=== PATIENT | female | born 1955 | race Caucasian/White ===

== ENCOUNTER 2016-08-11 06:00 | Outpatient (CLI) | payer OTHER ==
[~2016-08-11] VITALS: Ht 162.6 cm; Wt 79.8 kg
[~2016-08-11 06:00] MED LIST: ACHD5005 PO; AGGRENOX; B12; CHOL4PAC17 PO; CIPR-120 PO; DICY10CA26 PO; ENAL1TAB19 PO; GABA800T2 PO; GLUMETZA; HYDR-1231 PO; INSASP10V; INSU100C4; JANUVIA; LANTUS; LSNP10T; LVST20T; MGX400T; NAPR550T PO; PRILOSEC; SULF-222 PO; VIT D; [UNRECOGNIZED DRUG - OTHER]
--- OUTSIDE RECORDS SUMMARY | 2016-08-11 06:03 | XMS REPORT | Continuity of Care Document ---
Author Author [facility] Organization [facility] Address Unknown Phone Unavailable Allergies Active Description Code Type Severity Reaction Onset Reported/Identified Relationship to Patient Clinical Status Yes pregabalin [id number] Drug Allergy Mild N/A 09/24/2007 Medications Problems Procedures Results Encounters ACCT No. Visit Date/Time Discharge Status Pt. Type Provider Facility Loc./Unit Complaint [id number] 01/15/2014 14:45:00 2013 23:59:59 CLS Outpatient [id number] 12/17/2013 13:30:00 2013 23:59:59 CLS Outpatient [id number] 12/17/2013 14:10:00 2013 15:39:00 DIS Emergency [id number] 05/16/2013 11:39:00 2012 23:59:59 CLS Outpatient [id number] 02/07/2013 14:20:00 2012 23:59:59 CLS Outpatient [id number] 08/11/2016 06:00:00 ACT Outpatient VIBHA WALLACE MD [facility] PREOP ABD PAIN
[2016-08-11] MEDS ORDERED: INSU100I32 SQ (13:51)
[2016-08-11] MEDS ORDERED: SITA100T12 PO (13:51)
[2016-08-11] MEDS ORDERED: OMEP20TA33 PO (13:55)
[2016-08-12] MEDS ORDERED: VITAMINE (12:47)
[2016-08-12] MEDS ORDERED: NAPR500T PO (12:47)
[2016-08-12] MEDS ORDERED: B12 SHOT (12:47)
[2016-08-12] MEDS ORDERED: PANT40TA3 PO (12:47)
[2016-08-12] MEDS ORDERED: DPAS20025 PO (12:47)
[2016-08-12] MEDS ORDERED: LOVA10TA PO (12:47)
[2016-08-12] MEDS ORDERED: FLUC100T6 PO (13:26)
[2016-08-12] MEDS ORDERED: SUCR1TAB36 PO (13:26)
== END 2016-08-11 14:06 ==
LOC: PREOP 06:00
PROVIDERS: ATTEND Surgery Pediatric Surgery
DX: Z01.818 Encounter for other preprocedural examination (principal); R10.9 Unspecified abdominal pain

== ENCOUNTER 2016-08-12 11:58 | Day surgery (SDC) | payer OTHER ==
[~2016-08-12] VITALS: Ht 162.6 cm; Wt 79.8 kg
[~2016-08-12 11:58] MED LIST changes: +INSU100I32 SQ; +OMEP20TA33 PO; +SITA100T12 PO
--- OUTSIDE RECORDS SUMMARY | 2016-08-12 12:01 | XMS REPORT | Continuity of Care Document ---
Author Author [facility] Organization [facility] Address Unknown Phone Unavailable Allergies Active Description Code Type Severity Reaction Onset Reported/Identified Relationship to Patient Clinical Status Yes pregabalin [id number] Drug Allergy Mild N/A 09/24/2007 Medications Problems Procedures Results Encounters ACCT No. Visit Date/Time Discharge Status Pt. Type Provider Facility Loc./Unit Complaint [id number] 08/11/2016 06:00:00 2016 14:06:00 DIS Outpatient VIBHA WALLACE MD [facility] PREOP ABD PAIN [id number] 01/15/2014 14:45:00 2013 23:59:59 CLS Outpatient [id number] 12/17/2013 13:30:00 2013 23:59:59 CLS Outpatient [id number] 12/17/2013 14:10:00 2013 15:39:00 DIS Emergency [id number] 05/16/2013 11:39:00 2012 23:59:59 CLS Outpatient [id number] 02/07/2013 14:20:00 2012 23:59:59 CLS Outpatient [id number] 08/12/2016 11:58:00 ACT Outpatient VIBHA WALLACE MD [facility] ENDO ABD PAIN
--- OUTSIDE RECORDS SUMMARY | 2016-08-12 12:01 | XMS REPORT | Continuity of Care Document ---
Author Author [facility] Organization [facility] Address Unknown Phone Unavailable Allergies Active Description Code Type Severity Reaction Onset Reported/Identified Relationship to Patient Clinical Status Yes pregabalin [id number] Drug Allergy Mild N/A 09/24/2007 Medications Problems Procedures Results Encounters ACCT No. Visit Date/Time Discharge Status Pt. Type Provider Facility Loc./Unit Complaint [id number] 08/11/2016 06:00:00 2016 14:06:00 DIS Outpatient VIBHA WALLACE MD [facility] PREOP ABD PAIN [id number] 01/15/2014 14:45:00 2013 23:59:59 CLS Outpatient [id number] 12/17/2013 13:30:00 2013 23:59:59 CLS Outpatient [id number] 12/17/2013 14:10:00 2013 15:39:00 DIS Emergency [id number] 05/16/2013 11:39:00 2012 23:59:59 CLS Outpatient [id number] 02/07/2013 14:20:00 2012 23:59:59 CLS Outpatient [id number] 08/12/2016 11:58:00 ACT Outpatient VIBHA WALLACE MD [facility] ENDO ABD PAIN
[2016-08-12] MEDS ORDERED: NS IV 500 ML 500 ML IV SCH (12:15)
[2016-08-12] MEDS ORDERED: LIDOCAINE JELLY 2% (XYLOCAINE) 5 ML TUBE MM PRN (12:15)
[2016-08-12] MEDS ORDERED: HURRICAINE EXT TUBE (BENZOCAINE) XX PRN (12:15)
[2016-08-12] MEDS ORDERED: FLUMAZENIL (ROMAZICON) 0.1 MG/ML 5 ML VIAL INJ PRN (12:15)
[2016-08-12] MEDS ORDERED: NALOXONE 0.4 MG/ML 1 ML (NARCAN) VIAL IVP PRN (12:15)
[2016-08-12 12:34] VITALS: BP 87/62
--- NOTE | 2016-08-12 12:35 | Conscious Sedation/ASA ---
Conscious Sedation Pre-Proced Time Reviewed: 12:15 ASA Class: 2 Airway Mallampati Classification: ([place] appropriate class) I. II. III, IV Lungs Heart ASA score ASA 1: a normal healthy patient ASA 2: a patient with a mild systemic disease (mid diabetes, controlled hypertension, obesity ASA 3: a patient with a severe systemic disease that limits activity (angina , COPD, prior Myocardial infarction) ASA 4: a patient with an incapacitating disease that is a constant threat to life (CHF, renal failure) ASA 5: a moribund patient not expected to survive 24 hrs. (ruptured aneurysm) ASA 6: a declared brain patient whose organs are being harvested. For emergent operations, add the letter E after the classification Grade 2 Sedation Plan: Analgesia, Amnesia, Plan communicated to team members, Discussed options with patient/fam, Discussed risks with patient/fam Note The patient is an appropriate candidate to undergo the planned procedure, sedation, and anesthesia. The patient immediately re-assessed prior to indication. VIBHA WALLACE MD Aug 12, 2016 12:35 pm
--- NOTE | 2016-08-12 12:36 | Progress Note-Pre Operative ---
Pre-Operative Progress Note H&P Reviewed The H&P was reviewed, patient examined and no changes noted. Date H&P Reviewed: Aug 12, 2016 Time H&P Reviewed: 12:15 Pre-Operative Diagnosis: GERD VIBHA WALLACE MD Aug 12, 2016 12:36 pm
[2016-08-12] MEDS ORDERED: HURRICAINE EXT TUBE (BENZOCAINE) ONE (12:37)
[2016-08-12] MEDS ORDERED: fentaNYL INJECTION 100 MCG/2 ML AMP ONE (12:37)
[2016-08-12] MEDS ORDERED: MIDAZOLAM 2 MG/2 ML (VERSED) VIAL ONE ×4 (12:37)
[2016-08-12] MEDS: fentaNYL INJECTION 100 MCG/2 ML AMP IVP PRN ×2 (12:40→12:53)
[2016-08-12] MEDS: MIDAZOLAM 2 MG/2 ML (VERSED) VIAL IVP PRN ×2 (12:41→12:54)
[2016-08-12] MEDS ORDERED: ONDANSETRON 4 MG/2 ML (SDV) Z0FRAN IV PRN (12:45)
[2016-08-12] MEDS ORDERED: morphine INJ 10 MG/ML 1ML (SYR OR VIAL) IV PRN (12:45)
[2016-08-12] MEDS ORDERED: HYDROcodone/APAP 5 MG/325 MG (LORTAB) TAB PO PRN (12:45)
[2016-08-12] MEDS ORDERED: ACETAMINOPHEN 325 MG TABLET/CAPLET (TYLENOL) PO PRN (12:45)
[2016-08-12] MEDS ORDERED: PANT40TA3 PO (12:47)
[2016-08-12] MEDS ORDERED: B12 SHOT (12:47)
[2016-08-12] MEDS ORDERED: VITAMINE (12:47)
[2016-08-12] MEDS ORDERED: DPAS20025 PO (12:47)
[2016-08-12] MEDS ORDERED: LOVA10TA PO (12:47)
[2016-08-12] MEDS ORDERED: NAPR500T PO (12:47)
--- NOTE | 2016-08-12 13:24 | Progress Note-Post Operative ---
Post-Operative Progess Note Pre-Operative Diagnosis GERD Post-Operative Diagnosis reflux esophagitis(class B-C), small HH(2cm), distal esophageal plaques, mild gastritis. Post-Op Procedure Note Date of Procedure: Aug 12, 2016 Name of Procedure: EGD with bx and brushings Anesthesia Type CS Estimated blood loss (mL): minimal Specimen(s) collected GE jxn, antrum, esophageal brushings for amor VIBHA WALLACE MD Aug 12, 2016 1:24 pm
[2016-08-12] MEDS ORDERED: FLUC100T6 PO (13:26)
[2016-08-12] MEDS ORDERED: SUCR1TAB36 PO (13:26)
--- NOTE | 2016-08-12 13:27 | Discharge Inst-Surgical ---
D/C Lap Instructions-KIDO New, Converted, or Re-Newed RX: RX on Chart Follow Up Appt 6 weeks Activity as tolerated High Fiber Diet 25g or more per day Avoid Alcohol, Caffeine, Spicy [place] and Acid foods. Drink 64 fluid oz or more of fluids per day. Symptoms to Report: Fever over 101 degree F, Nausea/Vomiting If any problems/questions: Contact your physician or go to Emergency Room VIBHA WALLACE MD Aug 12, 2016 1:27 pm
[2016-08-12 13:40] VITALS: BP 100/62
[2016-08-12 14:00] VITALS: BP 97/56
[2016-08-12 14:05] VITALS: BP 97/56
--- NOTE | 2016-08-14 09:20 | OPERATIVE REPORT ---
PROCEDURE PHYSICIAN: VIBHA WALLACE DATE OF PROCEDURE: 08/12/2016 ATTENDING PHYSICIAN: Dr. Butler. PREOPERATIVE DIAGNOSIS: Gastroesophageal reflux disease with history of H. pylori gastritis. POSTOPERATIVE DIAGNOSES: 1. Reflux esophagitis, between class B and C. 2. Distal esophageal plaque which may indicate esophageal candidiasis. 3. Small hiatal hernia, approximately 2 cm in size. 4. Mild gastritis. PROCEDURE: EGD with biopsy. SURGEON: Dr. Wallace. ANESTHESIA: Conscious sedation. ESTIMATED BLOOD LOSS: Minimal. FINDINGS: 1. Reflux esophagitis, between class B and C with yellowish plaques throughout the distal esophagus consistent with an esophageal candidiasis. 2. No ulcers or strictures in the esophagus. 3. Small hiatal hernia, approximately 2 cm in size. 4. Mild severity gastritis. 5. No ulcers or polyps in the stomach. DISPOSITION: The patient tolerated the procedure well. BRIEF HISTORY: Ms. Chantale Salguero is a 60-year-old female who we have seen before in the past. We had initially seen in December 2009 her reflux and regurgitation. She a history of laparoscopic cholecystectomy as well as antireflux procedure September 2007. She reports that she had a follow-up endoscopy in 2009 where H. pylori was identified and treated. She reports that she has had recurrent episodes of reflux with epigastric burning sensation as well as crampy pain that is worsened by spicy, greasy or acidic foods. PROCEDURE: The patient was brought to the endoscopy suite, laid in the left lateral decubitus position. After adequate IV pain and sedative medications and conscious sedation anesthesia, the mouthpiece was applied. The endoscope was placed in the mouth, visualizing the pharynx and hypopharyngeal region. Vocal cords, epiglottis and vallecula identified and appeared to be normal. The endoscope was then gently intubated into the esophageal opening and the esophagus at. The endoscope was advanced through the first, second, and 3rd portions of the esophagus. At the level of the GE junction, a reflux esophagitis, between class B and C identified. There also yellowish plaques within the distal esophagus consistent with an esophageal candidiasis which is more common with a history of diabetes. Several biopsies were taken of the GE junction using forceps as well as brushings with visualization of good hemostasis. The endoscope was then advanced into the stomach and endoscope retroflexed visualizing a small hiatal hernia, approximately 2 cm in size. There was a mild to moderate severity gastritis. No ulcers, polyps or any neoplasms identified throughout the stomach. The endoscope was then advanced through the pylorus, into the first and second portions of duodenum which appeared normal. The endoscope was slowly withdrawn while taking a second look and suctioning residual air with no additional findings. The patient tolerated the procedure well. We will recommend the necessary lifestyle and diet accommodation including smoking cessation as well as avoidance of caffeinated beverages, spicy, greasy and acidic foods. She also needs to proceed with smaller, more frequent meals, avoidance of eating at night, as well as head elevation while lying supine. We will also start her on Carafate 1 gram q.i.d. for the next 2 weeks and then on a p.r.n. basis, as well as empirically treat her for esophageal candidiasis with fluconazole 100 mg on the first day and a 100 mg daily for a total 14 days. Job ID: [id number] Dictated Date: 08/12/2016 13:18:50 Transportation Lead Date: 08/14/2016 09:12:32 / melanie
== END 2016-08-12 14:05 | disposition home or self-care (01) ==
LOC: ENDO 11:58
PROVIDERS: ATTEND Surgery Pediatric Surgery
DX: K21.0 Gastro-esophageal reflux disease with esophagitis (principal); K44.9 Diaphragmatic hernia without obstruction or gangrene; K29.70 Gastritis, unspecified, without bleeding; B96.81 Helicobacter pylori [H. pylori] as the cause of diseases classified elsewhere
CPT/HCPCS: 87101; 87106; 88305; 88342

== ENCOUNTER 2017-06-30 10:57 | Inpatient (IN) | payer OTHER ==
[~2017-06-30] VITALS: Ht 162.6 cm; Wt 78.1 kg
[~2017-06-30 10:57] MED LIST changes: +B12 SHOT; +DPAS20025 PO; +FLUC100T6 PO; +LOVA10TA PO; +NAPR-1071 PO; +PANT40TA3 PO; +SUCR1TAB36 PO; +VITAMINE
[2017-06-30] MEDS ORDERED: LIDOCAINE 2% 20 ML (XYLOCAINE) VIAL ONE (11:26)
[2017-06-30] MEDS ORDERED: LIDOCAINE 1% INJ 50 ML (XYLOCAINE) VIAL IJ ONE (11:45)
[2017-06-30] MEDS ORDERED: morphine INJ 10 MG/ML 1ML (SYR OR VIAL) IVP STA (11:45)
[2017-06-30] MEDS ORDERED: NS IV 1000 ML 1,000 ML IV ONE (11:45)
--- NOTE | 2017-06-30 11:52 | ED General ---
General Chief Complaint: Skin/Wound Problems Stated Complaint: ABCESS ON REAR END Nursing Triage Note: abscess of the left buttock Source of Information: Patient, Spouse Exam Limitations: No Limitations History of Present Illness Time Seen by Provider: 11:20 Initial Comments 61-year-old female patient of Dr. Butler's presents to the emergency department with 9 day onset of left buttock abscess. Patient reports spontaneous drainage today. Does have a history of diabetes, recent cardiac stents. Is supposed to see Dr. Harris in July. Reports increased pain, redness, drainage. Denies any fevers or chills. Timing/Duration: Getting Worse, Other (9 day onset) Modifying Factors: worse with Other (worse with palpation, movement, and sitting) Allergies and Home Medications Allergies Coded Allergies: pregabalin (Unverified Allergy, Mild, 09/24/07) Home Medications Dipyridamole/Aspirin 1 Ea Cap, 1 CAP PO DAILY, (Reported) Dipyridamole/Aspirin 1 Ea Cap, 1 CAP PO BID, (Reported) Enalapril/Hydrochlorothiazide 1 Tab Tablet, 1 TAB PO DAILY, (Reported) Insulin Degludec 100 Unit/1 Ml Insuln.pen, 25 UNIT SQ DAILY@1800, (Reported) Lovastatin 10 Mg Tablet, 10 MG PO DAILY, (Reported) Naproxen 500 Mg Tablet, 500 MG PO NEEDED, (Reported) Pantoprazole Sodium 40 Mg Tablet.dr, 40 MG PO DAILY, (Reported) Sitagliptin Phosphate 100 Mg Tablet, 100 MG PO DAILY, (Reported) Sucralfate 1 Gm Tablet, 1 GM PO QID, #120 Prescribed by: VIBHA WALLACE on 08/12/16 1326 [B12 Shot] , (Reported) [Vitamine D2] , (Reported) Constitutional: No chills, No fever, malaise Respiratory: no symptoms reported Cardiovascular: no symptoms reported Gastrointestinal: No abdominal pain, No constipation, No diarrhea, loss of appetite, No nausea, No vomiting Genitourinary: No decreased output, No dysuria, No frequency, pain (labial/ vaginal pain today from the swelling) Musculoskeletal: no symptoms reported Skin: see HPI Psychiatric/Neurological: No Symptoms Reported All Other Systems Reviewed Negative Unless Noted: Yes (Negative excepted noted.) Past Dfytgep-Atxwra-Jztrkk Hx Patient Social History Alcohol Use: Denies Use Recreational Drug Use: No Smoking Status: Former Smoker Type Used: Cigarettes Recent Foreign Travel: No Contact w/Someone Who Travel: No Recent Hopitalizations: No Immunizations Up To Date Tetanus Booster (TDap): Less than 5yrs Date of Pneumonia Vaccine: Aug 04, 2016 Seasonal Allergies Seasonal Allergies: No Surgeries History of Surgeries: Yes (rt leg stents) Surgeries: Gallbladder, Tracheostomy, Tubal Ligation Respiratory History of Respiratory Disorde: No Cardiovascular History of Cardiac Disorders: Yes Cardiac Disorders: Hypertension, Peripheral Vascular Neurological History of Neurological Disord: Yes Neurological Disorders: TIA 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 System Hx 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 Disorders: No 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 Genitourinary History of Genitourinary Disor: No Gastrointestinal History of Gastrointestinal Di: Yes Gastrointestinal Disorders: Gastroesophageal Reflux Musculoskeletal History of Musculoskeletal Dis: No Endocrine History of Endocrine Disorders: Yes Endocrine Disorders: Diabetes, Insulin dep HEENT History of HEENT Disorders: Yes Psychosocial History of Psychiatric Problem: No Reviewed Nursing Assessment Reviewed/Agree w Nursing PMH: Yes Family Medical History Significant Family History: No Pertinent Family Hx, Heart Disease, Cancer ( cervical cancer), Diabetes, Hypertension, Vascular Disease Physical Exam Vital Signs Vital Sign - Last 12Hours 06/30/17 11:17 Temp 95.1 Pulse 70 Resp 18 B/P (MAP) 115/51 (72) Pulse Ox 98 O2 Delivery Room Air Capillary Refill : General Appearance: No Apparent Distress, WD/WN, Chronically ill HEENT: PERRL/EOMI, Pharynx Normal Neck: Normal Inspection, Supple Respiratory: Lungs Clear, Normal Breath Sounds, No Accessory Muscle Use, No Respiratory Distress Cardiovascular: Regular Rate, Rhythm, No Murmur Gastrointestinal: Normal Bowel Sounds, Non Tender, Soft Back: Normal Inspection Extremity: Normal Capillary Refill, No Pedal Edema Neurologic/Psychiatric: Alert, Oriented x3, Normal Mood/Affect Skin: Normal Color, Warm/Dry, Other (9 cm area of erythema, warmth, swelling, tenderness with central eschar of the left buttock. moderate amount of purulent , malodorous drainage noted. ) Progress/Results/Core Measures Suspected Sepsis SIRS Temperature: Pulse: Respiratory Rate: Laboratory Tests 06/30/17 11:45: White Blood Count 11.6H Blood Pressure / Mean: Laboratory Tests 06/30/17 11:45: Creatinine 1.72H, Platelet Count 233, Total Bilirubin 0.4 Results/Orders Lab Results Laboratory Tests Test 06/30/17 11:45 Range/Units White Blood Count 11.6 H 4.3-11.0 10^3/uL Red Blood Count 4.34 L 4.35-5.85 10^6/uL Hemoglobin 13.5 11.5-16.0 G/DL Hematocrit 39 35-52 % Mean Corpuscular Volume 89 80-99 FL Mean Corpuscular Hemoglobin 31 25-34 PG Mean Corpuscular Hemoglobin Concent 35 32-36 G/DL Red Cell Distribution Width 13.5 10.0-14.5 % Platelet Count 233 130-400 10^3/uL Mean Platelet Volume 12.7 H 7.4-10.4 FL Neutrophils (%) (Auto) 79 H 42-75 % Lymphocytes (%) (Auto) 11 L 12-44 % Monocytes (%) (Auto) 8 0-12 % Eosinophils (%) (Auto) 2 0-10 % Basophils (%) (Auto) 1 0-10 % Neutrophils # (Auto) 9.2 H 1.8-7.8 X 10^3 Lymphocytes # (Auto) 1.3 1.0-4.0 X 10^3 Monocytes # (Auto) 1.0 0.0-1.0 X 10^3 Eosinophils # (Auto) 0.2 0.0-0.3 10^3/uL Basophils # (Auto) 0.1 0.0-0.1 10^3/uL Sodium Level 133 L 135-145 MMOL/L Potassium Level 3.9 3.6-5.0 MMOL/L Chloride Level 100 98-107 MMOL/L Carbon Dioxide Level 20 L 21-32 MMOL/L Anion Gap 13 5-14 MMOL/L Blood Urea Nitrogen 45 H 7-18 MG/DL Creatinine 1.72 H 0.60-1.30 MG/DL Estimat Glomerular Filtration Rate 30 BUN/Creatinine Ratio 26 Glucose Level 191 H 70-105 MG/DL Calcium Level 9.2 8.5-10.1 MG/DL Total Bilirubin 0.4 0.1-1.0 MG/DL Aspartate Amino Transf (AST/SGOT) 16 5-34 U/L Alanine Aminotransferase (ALT/SGPT) 13 0-55 U/L Alkaline Phosphatase 42 40-136 U/L C-Reactive Protein High Sensitivity 4.96 H 0.00-0.50 MG/DL Total Protein 7.2 6.4-8.2 GM/DL Albumin 3.3 3.2-4.5 GM/DL My Orders Orders - FAMILIA RESENDIZ Saline Lock/Iv-Start (06/30/17 11:45) Cbc With Automated Diff (06/30/17 11:45) Comprehensive Metabolic Panel (06/30/17 11:45) Hs C Reactive Protein (06/30/17 11:45) Wound Culture (06/30/17 11:45) Morphine Injection (Morphine Injection (06/30/17 11:45) Ns Iv 1000 Ml (Sodium Chloride 0.9%) (06/30/17 11:45) Lidocaine 1% (Xylocaine 1%) (06/30/17 11:45) Vancomycin Injection (Vancomycin Injecti (06/30/17 12:15) Piperacillin Sodium/Tazobactam (Zosyn Vi (06/30/17 12:15) Ns (Ivpb) (Sodium Chloride 0.9% Ivpb Bag (06/30/17 12:44) Medications Given in ED Current Medications Medications Dose Ordered Sig/Nhan Route Start Time Stop Time Status Last Admin Dose Admin Lidocaine HCl 50 ml ONCE ONCE IJ 06/30/17 11:45 06/30/17 11:47 DC 06/30/17 11:25 50 ML Piperacillin Sod/ Tazobactam Sod 4.5 gm ONCE ONCE IV 06/30/17 12:15 06/30/17 12:16 DC 06/30/17 13:01 4.5 GM Sodium Chloride 1,000 ml @ 0 mls/hr Q0M ONCE IV 06/30/17 11:45 06/30/17 11:47 DC 06/30/17 11:57 0 MLS/HR Vital Signs/I&O Vital Sign - Last 12Hours 06/30/17 11:17 Temp 95.1 Pulse 70 Resp 18 B/P (MAP) 115/51 (72) Pulse Ox 98 O2 Delivery Room Air Capillary Refill : Departure Communication (Admissions) Time/Spoke to Admitting Phy: 11:[address] You graciously accepts patient to his general surgery service for IV antibiotics and further management. Incision and drainage with 1/4 in jason drain placement performed by Dr. You in the emergency department at bedside. Progress Notes Laboratory findings and plan for admission discussed with the patient. Patient verbalizes understanding and agrees with the treatment plan. Dr. Varela notified of plan of admission. Impression Impression: Primary Impression: Cellulitis and abscess of buttock Additional Impressions: Hyperglycemia due to type 2 diabetes mellitus Qualified Codes: E11.65 - Type 2 diabetes mellitus with hyperglycemia Leukocytosis Qualified Codes: D72.829 - Elevated white blood cell count, unspecified CKD (chronic kidney disease) stage 3, GFR 30-59 ml/min Disposition: ADMITTED INPATIENT Condition: Stable Admissions Decision to Admit Reason: Admit from ER (General) Decision to Admit/Date: Jun 30, 2017 Time/Decision to Admit Time: 12:00 Departure-Patient Inst. Referrals: NATHAN BUTLER DO (PCP/Family) Primary Care Physician FAMILIA RESENDIZ Jun 30, 2017 11:52
[2017-06-30 12:00] LABS: BASOPHILS # (AUTO) 0.1 10^3/uL (0.0-0.1); BASOPHILS % (AUTO) 1 % (0-10); EOSINOPHILS # (AUTO) 0.2 10^3/uL (0.0-0.3); EOSINOPHILS % (AUTO) 2 % (0-10); HEMATOCRIT 39 % (35-52); HEMOGLOBIN 13.5 G/DL (11.5-16.0); LYMPHOCYTES # (AUTO) 1.3 X 10^3 (1.0-4.0); LYMPHOCYTES % (AUTO) 11 % (12-44); MEAN CORPUSCULAR HEMOGLOBIN 31 PG (25-34); MEAN CORPUSCULAR HGB CONC 35 G/DL (32-36); MEAN CORPUSCULAR VOLUME 89 FL (80-99); MEAN PLATELET VOLUME 12.7 FL (7.4-10.4); MONOCYTES % (AUTO) 8 % (0-12); NEUTROPHILS # (AUTO) 9.2 X 10^3 (1.8-7.8); NEUTROPHILS % (AUTO) 79 % (42-75); PLATELET COUNT 233 10^3/uL (130-400); RED BLOOD COUNT 4.34 10^6/uL (4.35-5.85); RED CELL DISTRIBUTION WIDTH 13.5 % (10.0-14.5); WHITE BLOOD COUNT 11.6 10^3/uL (4.3-11.0)
[2017-06-30] MEDS ORDERED: VANCOMYCIN INJECTION 1,000 MG in NS (IVPB) 250 ML IV ONE (12:15)
[2017-06-30] MEDS ORDERED: PIPERACILLIN/TAZO 4.5 GM VIAL (ZOSYN) IV ONE (12:15)
[2017-06-30 12:19] VITALS: BP 106/65
[2017-06-30 12:19] LABS: ALBUMIN 3.3 GM/DL (3.2-4.5); BILIRUBIN,TOTAL 0.4 MG/DL (0.1-1.0); CALCIUM 9.2 MG/DL (8.5-10.1); CREATININE SERUM 1.72 MG/DL (0.60-1.30); POTASSIUM 3.9 MMOL/L (3.6-5.0); TOTAL PROTEIN 7.2 GM/DL (6.4-8.2)
[2017-06-30] MEDS ORDERED: DPAS20025 PO (12:36)
--- NOTE | 2017-06-30 12:40 | History & Physical-Surgical ---
History of Present Illness History of Present Illness Reason for visit/HPI CC: Left buttock abscess/cellulitis 61 year old female with abscess on left buttock that has been there for approximately 9 days. It has continued to increase in size and has been draining almost on a daily basis varying amounts. She has a pressure type pain from left buttock down towards her vagina. She has not has any fever sweats chills shortness of breath or chest pain. She states sitting down makes pain worse. Avoiding pressure on it makes it better. She saw Dr. Butler today. She is a diabetic but she does not check her blood sugars regularly. at bedside with her. Date of Admission T Date Seen by Provider: Jun 30, 2017 Time Seen by Provider: 12:39 I consulted on this patient on 06/30/17 12:35 Attending Physician Kenyatta Admitting Physician Usman Butler DO Consult Dr. Cunningham Allergies and Home Medications Allergies Coded Allergies: pregabalin (Unverified Allergy, Mild, 09/24/07) Home Medications Dipyridamole/Aspirin 1 Ea Cap, 1 CAP PO DAILY, (Reported) Enalapril/Hydrochlorothiazide 1 Tab Tablet, 1 TAB PO DAILY, (Reported) Fluconazole 100 Mg Tablet, 100 MG PO DAILY, #15 Prescribed by: VIBHA WALLACE on 08/12/16 1326 Insulin Degludec 100 Unit/1 Ml Insuln.pen, 25 UNIT SQ DAILY@1800, (Reported) Lovastatin 10 Mg Tablet, 10 MG PO DAILY, (Reported) Naproxen 500 Mg Tablet, 500 MG PO NEEDED, (Reported) Pantoprazole Sodium 40 Mg Tablet.dr, 40 MG PO DAILY, (Reported) Sitagliptin Phosphate 100 Mg Tablet, 100 MG PO DAILY, (Reported) Sucralfate 1 Gm Tablet, 1 GM PO QID, #120 Prescribed by: VIBHA WALLACE on 08/12/16 1326 [B12 Shot] , (Reported) [Vitamine D2] , (Reported) Past Uliktoz-Fxtham-Vmwhdd Hx Patient Social History Alcohol Use: Denies Use Recreational Drug Use: No Smoking Status: Former Smoker Former Smoker, Quit: Jun 18, 2017 Type Used: Cigarettes Recent Foreign Travel: No Contact w/Someone Who Travel: No Recent Infectious Disease Expo: No Recent Hopitalizations: No Immunizations Up To Date Tetanus Booster (TDap): Less than 5yrs Date of Pneumonia Vaccine: Aug 04, 2016 Seasonal Allergies Seasonal Allergies: No Surgeries History of Surgeries: Yes (LAP JOSE ALFREDO THEN REVERSAL) Surgeries: Cardiac, Gallbladder, Tracheostomy, Tubal Ligation Respiratory History of Respiratory Disorde: No Cardiovascular History of Cardiac Disorders: Yes (R-LEG STENT AT [facility]) Neurological History of Neurological Disord: Yes Neurological Disorders: TIA 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 System Hx 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 Disorders: 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 Genitourinary History of Genitourinary Disor: No Gastrointestinal History of Gastrointestinal Di: Yes Gastrointestinal Disorders: Gastroesophageal Reflux Musculoskeletal History of Musculoskeletal Dis: No Endocrine History of Endocrine Disorders: Yes Endocrine Disorders: Diabetes, Insulin dep HEENT History of HEENT Disorders: Yes Loss of Vision: Right Cancer History of Cancer: No Psychosocial History of Psychiatric Problem: No Integumentary History of Skin or Integumenta: No Blood Transfusions History of Blood Disorders: No Family Medical History Significant Family History: No Pertinent Family Hx Constitutional: no symptoms reported EENTM: no symptoms reported Respiratory: no symptoms reported Cardiovascular: no symptoms reported Gastrointestinal: no symptoms reported Genitourinary: no symptoms reported Musculoskeletal: no symptoms reported Skin: see HPI Psychiatric/Neurological: No Symptoms Reported Physical Exam Vital Signs Vital Sign - Last 12Hours 06/30/17 11:17 Temp 95.1 Pulse 70 Resp 18 B/P (MAP) 115/51 (72) Pulse Ox 98 O2 Delivery Room Air Capillary Refill : Less Than 3 Seconds General Appearance: No Apparent Distress HEENT: PERRL/EOMI Neck: Full Range of Motion, Normal Inspection Respiratory: No Accessory Muscle Use, No Respiratory Distress Cardiovascular: Regular Rate, Rhythm Gastrointestinal: Non Tender, Soft Genital/Rectal: Other (large left buttock abscess with some necrotic skin where there is slight drainage, lot of surrounding induration approximately 9 cm in greastest diameter) Back: Normal Inspection Extremity: Normal Inspection Neurologic/Psychiatric: Alert, Oriented x3, No Motor/Sensory Deficits, Normal Mood/Affect, moisture meter reader II-XII Norm as Tested Skin: Other (erythema around left buttock) Lymphatic: No Adenopathy Data Review Labs Laboratory Tests 06/30/17 11:45: White Blood Count 11.6H, Red Blood Count 4.34L, Hemoglobin 13.5, Hematocrit 39, Mean Corpuscular Volume 89, Mean Corpuscular Hemoglobin 31, Mean Corpuscular Hemoglobin Concent 35, Red Cell Distribution Width 13.5, Platelet Count 233, Mean Platelet Volume 12.7H, Neutrophils (%) (Auto) 79H, Lymphocytes (%) (Auto) 11L, Monocytes (%) (Auto) 8, Eosinophils (%) (Auto) 2, Basophils (%) (Auto) 1, Neutrophils # (Auto) 9.2H, Lymphocytes # (Auto) 1.3, Monocytes # (Auto) 1.0, Eosinophils # (Auto) 0.2, Basophils # (Auto) 0.1, Sodium Level 133L, Potassium Level 3.9, Chloride Level 100, Carbon Dioxide Level 20L, Anion Gap 13, Blood Urea Nitrogen 45H, Creatinine 1.72H, Estimat Glomerular Filtration Rate 30, BUN/ Creatinine Ratio 26, Glucose Level 191H, Calcium Level 9.2, Total Bilirubin 0.4 , Aspartate Amino Transf (AST/SGOT) 16, Alanine Aminotransferase (ALT/SGPT) 13, Alkaline Phosphatase 42, C-Reactive Protein High Sensitivity 4.96H, Total Protein 7.2, Albumin 3.3 Assessment/Plan Assessment/Plan Assessment/Plan left buttock cellulitis/abscess dm I and d at bedside with jason drain placement cultures obtained IV abx Discussed with Dr. Cunningham who is consulted for medical management Discussed may need further surgical intervention which patient understands. SORIN CISSE DO Jun 30, 2017 12:40
[2017-06-30] MEDS ORDERED: NS (IVPB) 100 ML ONE (12:44)
--- OUTSIDE RECORDS SUMMARY | 2017-06-30 12:51 | XMS REPORT | Continuity of Care Document ---
Author Author [facility] Organization [facility] Address Unknown Phone Unavailable Allergies Active Description Code Type Severity Reaction Onset Reported/Identified Relationship to Patient Clinical Status Yes pregabalin [id number] Drug Allergy Mild N/A 09/24/2007 Medications There is no data. Problems Date Dx Coded Attending Type Code Diagnosis Diagnosed By 08/12/2016 VIBHA WALLACE MD, Ot R10.9 UNSPECIFIED ABDOMINAL PAIN 08/12/2016 VIBHA WALLACE MD, Ot Z01.818 ENCOUNTER FOR OTHER PREPROCEDURAL EXAMIN 08/12/2016 VIBHA WALLACE MD, Ot B96.81 HELICOBACTER PYLORI THE CAUSE OF DISE 08/12/2016 VIBHA WALLACE MD, Ot K21.0 GASTRO-ESOPHAGEAL REFLUX DISEASE WITH ES 08/12/2016 VIBHA WALLACE MD, Ot K29.70 GASTRITIS, UNSPECIFIED, WITHOUT BLEEDING 08/12/2016 VIBHA WALLACE MD, Ot K44.9 DIAPHRAGMATIC HERNIA WITHOUT OBSTRUCTION 08/19/2016 VIBHA WALLACE MD, Ot B96.81 HELICOBACTER PYLORI THE CAUSE OF DISE 08/19/2016 VIBHA WALLACE MD, Ot K21.0 GASTRO-ESOPHAGEAL REFLUX DISEASE WITH ES 08/19/2016 VIBHA WALLACE MD, Ot K29.70 GASTRITIS, UNSPECIFIED, WITHOUT BLEEDING 08/19/2016 VIBHA WALLACE MD, Ot K44.9 DIAPHRAGMATIC HERNIA WITHOUT OBSTRUCTION Procedures There is no data. Results Test Result Range Fungus culture - 08/12/16 00:00 QUANTITY OF GROWTH Abundant Growth NR Fungus culture [id number] NR Complete blood count (CBC) with automated white blood cell (WBC) differential - 06/30/17 11:45 Blood leukocytes automated count (number/volume) 11.6 10*3/uL 4.3-11.0 Blood erythrocytes automated count (number/volume) 4.34 10*6/uL 4.35-5.85 Venous blood hemoglobin measurement (mass/volume) 13.5 g/dL 11.5-16.0 Blood hematocrit (volume fraction) 39 % 35-52 Automated erythrocyte mean corpuscular volume 89 [foz_us] 80-99 Automated erythrocyte mean corpuscular hemoglobin (mass per erythrocyte) 31 pg 25-34 Automated erythrocyte mean corpuscular hemoglobin concentration measurement ( mass/volume) 35 g/dL 32-36 Automated erythrocyte distribution width ratio 13.5 % 10.0-14.5 Automated blood platelet count (count/volume) 233 10*3/uL 130-400 Automated blood platelet mean volume measurement 12.7 [foz_us] 7.4-10.4 Automated blood neutrophils/100 leukocytes 79 % 42-75 Automated blood lymphocytes/100 leukocytes 11 % 12-44 Blood monocytes/100 leukocytes 8 % 0-12 Automated blood eosinophils/100 leukocytes 2 % 0-10 Automated blood basophils/100 leukocytes 1 % 0-10 Blood neutrophils automated count (number/volume) 9.2 10*3 1.8-7.8 Blood lymphocytes automated count (number/volume) 1.3 10*3 1.0-4.0 Blood monocytes automated count (number/volume) 1.0 10*3 0.0-1.0 Automated eosinophil count 0.2 10*3/uL 0.0-0.3 Automated blood basophil count (count/volume) 0.1 10*3/uL 0.0-0.1 Comprehensive metabolic panel - 06/30/17 11:45 Serum or plasma sodium measurement (moles/volume) 133 mmol/L 135-145 Serum or plasma potassium measurement (moles/volume) 3.9 mmol/L 3.6-5.0 Serum or plasma chloride measurement (moles/volume) 100 mmol/L 98-107 Carbon dioxide 20 mmol/L 21-32 Serum or plasma anion gap determination (moles/volume) 13 mmol/L 5-14 Serum or plasma urea nitrogen measurement (mass/volume) 45 mg/dL 7-18 Serum or plasma creatinine measurement (mass/volume) 1.72 mg/dL 0.60-1.30 Serum or plasma urea nitrogen/creatinine mass ratio 26 NRG Serum or plasma creatinine measurement with calculation of estimated glomerular filtration rate 30 NRG Serum or plasma glucose measurement (mass/volume) 191 mg/dL 70-105 Serum or plasma calcium measurement (mass/volume) 9.2 mg/dL 8.5-10.1 Serum or plasma total bilirubin measurement (mass/volume) 0.4 mg/dL 0.1-1.0 Serum or plasma alkaline phosphatase measurement (enzymatic activity/volume) 42 U/L 40-136 Serum or plasma aspartate aminotransferase measurement (enzymatic activity/ volume) 16 U/L 5-34 Serum or plasma alanine aminotransferase measurement (enzymatic activity/volume ) 13 U/L 0-55 Serum or plasma protein measurement (mass/volume) 7.2 g/dL 6.4-8.2 Serum or plasma albumin measurement (mass/volume) 3.3 g/dL 3.2-4.5 Serum or plasma C reactive protein measurement (mass/volume) - 06/30/17 11:45 Serum or plasma C reactive protein measurement (mass/volume) 4.96 mg /dL 0.00-0.50 Encounters ACCT No. Visit Date/Time Discharge Status Pt. Type Provider Facility Loc./Unit Complaint [id number] 08/12/2016 11:58:00 08/12/2016 14:05:00 DIS Outpatient VIBHA WALLACE MD [facility] ENDO ABD PAIN [id number] 08/11/2016 06:00:00 08/11/2016 14:06:00 DIS Outpatient VIBHA WALLACE MD [facility] PREOP ABD PAIN [id number] 01/15/2014 14:45:00 01/15/2014 23:59:59 CLS Outpatient [id number] 12/17/2013 13:30:00 12/17/2013 23:59:59 CLS Outpatient [id number] 12/17/2013 14:10:00 12/17/2013 15:39:00 DIS Emergency [id number] 05/16/2013 11:39:00 05/16/2013 23:59:59 CLS Outpatient [id number] 02/07/2013 14:20:00 02/07/2013 23:59:59 CLS Outpatient [id number] 06/30/2017 12:03:00 Document Registration
[2017-06-30 13:30] VITALS: BP 104/58
[2017-06-30] MEDS ORDERED: KETOROLAC 15 MG/ML VIAL IV PRN (14:00)
[2017-06-30] MEDS ORDERED: INFLUENZA TRIvalent 2017-2018 0.5 ML/45 MCG SYR IM ONE (14:00)
[2017-06-30] MEDS ORDERED: ONDANSETRON 4 MG/2 ML (SDV) Z0FRAN IV PRN (14:00)
[2017-06-30] MEDS ORDERED: ENAL2.5T PO (14:19)
[2017-06-30] MEDS ORDERED: ERGO50006 PO (14:19)
[2017-06-30] MEDS ORDERED: PANT40TA2 PO (14:19)
[2017-06-30] MEDS ORDERED: NAPR500T4 PO (14:19)
[2017-06-30] MEDS: NS IV 1000 ML 1,000 ML IV SCH ×3 (14:24→22:39)
[2017-06-30] MEDS: CLINDAMYCIN 600 MG/NS 50 ML IVPB IV SCH ×4 (14:27→22:38)
[2017-06-30] MEDS ORDERED: GABA-490 PO ×2 (14:31→15:23)
[2017-06-30] MEDS ORDERED: INSU100I32 SQ (14:31)
[2017-06-30] MEDS ORDERED: LIPA1CAP4 PO (14:31)
[2017-06-30] MEDS ORDERED: IBUP-30 PO (14:37)
[2017-06-30] MEDS ORDERED: VANCOMYCIN 1500 MG/NS 500 ML IVPB IV NR ×2 (15:00)
[2017-06-30] MEDS ORDERED: LOVA10TA PO (15:15)
[2017-06-30] MEDS ORDERED: CNC1KV IJ (15:16)
[2017-06-30 16:00] VITALS: BP 107/59
[2017-06-30] MEDS ORDERED: inSUlin (REGULAR) HUMAN 1 UNIT/0.01 ML (CHARGE PER UNIT) SC SCH (16:00)
[2017-06-30] MEDS ORDERED: NAPROXEN 250 MG (NAPROSYN) TABLET PO PRN (16:00)
[2017-06-30] MEDS: HYDROcodone/APAP 5 MG/325 MG (LORTAB) TAB PO PRN (16:13)
[2017-06-30] MEDS: LIPASE/AMYLASE/PROTEASE (PANCRELIPASE) 5,000 UNITS CAP PO SCH (16:32)
[2017-06-30] MEDS: inSUlin ASPART (NovoLOG) 1 UNIT/0.01 ML (CHARGE PER UNIT) SC SCH ×2 (16:32→21:46)
[2017-06-30] MEDS: PIPERACILLIN/TAZOBACTAM 4.5 GM/NS 100 ML IVPB IV SCH ×2 (18:34)
[2017-06-30 20:00] VITALS: BP 98/56
[2017-06-30] MEDS: LINAGLIPTIN (TRADJENTA) 5 MG TABLET PO SCH (21:45)
[2017-06-30] MEDS: GABAPENTIN 400 MG (NEURONTIN) CAP PO SCH (21:45)
[2017-07-01] VITALS: BP_SYST 102; BP_SYST 12; BP_DIAS 52
[2017-07-01 04:00] VITALS: BP 94/53
[2017-07-01] MEDS: PIPERACILLIN/TAZOBACTAM 4.5 GM/NS 100 ML IVPB IV SCH ×6 (04:03→18:35)
[2017-07-01] MEDS: LIPASE/AMYLASE/PROTEASE (PANCRELIPASE) 5,000 UNITS CAP PO SCH ×3 (06:17→15:07)
[2017-07-01] MEDS: inSUlin ASPART (NovoLOG) 1 UNIT/0.01 ML (CHARGE PER UNIT) SC SCH ×4 (06:18→21:55)
[2017-07-01] MEDS: CLINDAMYCIN 600 MG/NS 50 ML IVPB IV SCH ×6 (06:18→21:54)
[2017-07-01] MEDS: HYDROcodone/APAP 5 MG/325 MG (LORTAB) TAB PO PRN ×4 (06:18→23:39)
[2017-07-01 08:00] VITALS: BP 104/54
[2017-07-01 08:01] LABS: BASOPHILS # (AUTO) 0.1 10^3/uL (0.0-0.1); BASOPHILS % (AUTO) 1 % (0-10); EOSINOPHILS # (AUTO) 0.2 10^3/uL (0.0-0.3); EOSINOPHILS % (AUTO) 2 % (0-10); HEMATOCRIT 31 % (35-52); HEMOGLOBIN 10.9 G/DL (11.5-16.0); LYMPHOCYTES # (AUTO) 1.3 X 10^3 (1.0-4.0); LYMPHOCYTES % (AUTO) 15 % (12-44); MEAN CORPUSCULAR HEMOGLOBIN 32 PG (25-34); MEAN CORPUSCULAR HGB CONC 35 G/DL (32-36); MEAN CORPUSCULAR VOLUME 91 FL (80-99); MEAN PLATELET VOLUME 12.2 FL (7.4-10.4); MONOCYTES % (AUTO) 11 % (0-12); NEUTROPHILS # (AUTO) 6.4 X 10^3 (1.8-7.8); NEUTROPHILS % (AUTO) 72 % (42-75); PLATELET COUNT 200 10^3/uL (130-400); RED BLOOD COUNT 3.45 10^6/uL (4.35-5.85); RED CELL DISTRIBUTION WIDTH 13.8 % (10.0-14.5); WHITE BLOOD COUNT 8.9 10^3/uL (4.3-11.0)
[2017-07-01 08:10] LABS: ALBUMIN 2.5 GM/DL (3.2-4.5); BILIRUBIN,TOTAL 0.4 MG/DL (0.1-1.0); CALCIUM 7.5 MG/DL (8.5-10.1); CREATININE SERUM 1.52 MG/DL (0.60-1.30); POTASSIUM 3.6 MMOL/L (3.6-5.0); TOTAL PROTEIN 5.4 GM/DL (6.4-8.2)
[2017-07-01] MEDS: NS IV 1000 ML 1,000 ML IV SCH ×2 (08:10→15:53)
[2017-07-01] MEDS: PANTOPRAZOLE 40 MG (PROTONIX) TAB PO SCH (08:11)
[2017-07-01] MEDS: GABAPENTIN 400 MG (NEURONTIN) CAP PO SCH ×3 (08:11→21:54)
[2017-07-01] MEDS: ENALAPRIL 2.5 MG (VASOTEC) TAB PO SCH (09:27)
[2017-07-01 12:00] VITALS: BP 103/52
--- NOTE | 2017-07-01 12:53 | Consultation-Hospitalist ---
HPI History of Present Illness: HPI/Chief Complaint CC: Medical management of diabetes in buttock abscess HPI: This is a 61-year-old white female clinic patient of Dr. Butler who presents to the ER with but Dr. You evaluated it and performed I & D and patient was admitted for supportive care and IV antibiotics. Cultures were reviewed and all antibiotics are maintained. Upon entering the room the abscess odor is very apparent inpatient reports her pain is better with pain medication. I reconciled all of her home medication yesterday and her blood sugars are adequate considering her acute illness infection. Source: patient Exam Limitations: no limitations Date Seen 07/01/17 Attending Physician Julius You DO PCP Usman Butler DO Referring Physician Date of Admission Jun 30, 2017 at 12:20 Home Medications & Allergies Home Medications Reviewed patient Home Medication Reconciliation Form Allergies Allergies Coded Allergies pregabalin (Unverified Allergy, Mild, 06/30/17) Past Yuhritd-Eljurv-Kpipnv Hx Patient Social History Marrital Status: Employed/Student: unemployed Alcohol Use: Denies Use Recreational Drug Use: No Smoking Status: Former Smoker Former Smoker, Quit: Jun 18, 2017 Type Used: Cigarettes Physical Abuse Screen: No Sexual Abuse: No Recent Foreign Travel: No Contact w/other who traveled: No Recent Hopitalizations: No Recent Infectious Disease Expo: No Immunizations Up To Date Tetanus Booster (TDap): Less than 5yrs Date of Pneumonia Vaccine: Aug 04, 2016 Seasonal Allergies Seasonal Allergies: No Surgeries Yes (rt leg stents) Cardiac, Gallbladder, Tracheostomy, Tubal Ligation Respiratory No Cardiovascular Yes (STENT IN LEG) Hypertension, Peripheral Vascular Neurological Yes TIA 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 System Hx 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 Disorders: No [employer] History: Tubal Ligation Genitourinary No Gastrointestinal Yes Gastroesophageal Reflux Musculoskeletal No Endocrine History of Endocrine Disorders: Yes Endocrine Disorders: Diabetes, Insulin dep 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 Review of Systems Constitutional: see HPI, fever EENTM: no symptoms reported Respiratory: no symptoms reported Cardiovascular: no symptoms reported Gastrointestinal: no symptoms reported Genitourinary: no symptoms reported Musculoskeletal: no symptoms reported Skin: see HPI Psychiatric/Neurological: No Symptoms Reported All Other Systems Reviewed Negative Unless Noted: Yes Physical Exam Physical Exam Vital Signs Vital Sign - Last 12Hours 06/30/17 11:17 Temp 95.1 Pulse 70 Resp 18 B/P (MAP) 115/51 (72) Pulse Ox 98 O2 Delivery Room Air Capillary Refill : Less Than 3 Seconds General Appearance: No Apparent Distress, WD/WN, Chronically ill Eyes: Bilateral Eye Normal Inspection, Bilateral Eye PERRL HEENT: PERRL/EOMI, Normal ENT Inspection, Pharynx Normal Neck: Full Range of Motion, Normal Inspection, Non Tender, Supple, Carotid Bruit Respiratory: Chest Non Tender, Lungs Clear, Normal Breath Sounds, No Accessory Muscle Use, No Respiratory Distress Cardiovascular: Regular Rate, Rhythm, No Edema, No Gallop, No JVD, No Murmur, Normal Peripheral Pulses Gastrointestinal: Normal Bowel Sounds, No Organomegaly, No Pulsatile Mass, Non Tender, Soft Back: Normal Inspection, No CVA Tenderness, No Vertebral Tenderness Extremity: Normal Capillary Refill, Normal Inspection, Normal Range of Motion, Non Tender, No Calf Tenderness, No Pedal Edema Neurologic/Psychiatric: Alert, Oriented x3, No Motor/Sensory Deficits, Normal Mood/Affect Skin: Normal Color, Warm/Dry, Other (abscess dressing intact) Lymphatic: No Adenopathy Results Results/Procedures Lab Laboratory Tests 06/30/17 11:45 07/01/17 07:24 Assessment/Plan Admission Diagnosis Assessment: Buttock abscess status post drainage and cultures appear to be strep placed on empiric antibiotics of broad-spectrum 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
[2017-07-01] MEDS: Insulin Degludec (Tresiba Flextouch U-100) SQ SCH (14:09)
[2017-07-01] MEDS: VANCOMYCIN 1250 MG/NS 250 ML IVPB IV SCH ×2 (15:00)
--- NOTE | 2017-07-01 15:03 | Progress Note ---
Subjective Date Seen by Provider: Jul 01, 2017 Time Seen by Provider: 09:16 Subjective/Events-last exam patient states its feeling better than yesterday. has drainage which has foul odor. still with erythema and induration. Denies n/v fever sweats chills shortness of breath or chest pain. Objective Exam Vital Signs Date Time Temp Pulse Resp B/P (MAP) Pulse Ox O2 Delivery O2 Flow Rate FiO2 07/01/17 12:00 97.4 72 18 103/52 (69) 94 Room Air 07/01/17 08:00 98.1 67 18 104/54 (71) 96 Room Air 07/01/17 04:00 97.6 69 17 94/53 (67) 97 Room Air 07/01/17 00:00 96.9 70 18 102/52 (69) 98 Room Air 06/30/17 20:00 96.5 57 20 98/56 (70) 98 Room Air 06/30/17 17:04 Room Air 06/30/17 16:00 96.6 73 20 107/59 (75) 98 Room Air I & O 07/01/17 07:00 Intake Total 1869 ml Output Total 525 ml Balance 1344 ml Capillary Refill : Less Than 3 Seconds General Appearance: No Apparent Distress, WD/WN, Chronically ill HEENT: PERRL/EOMI, Normal ENT Inspection, Pharynx Normal Neck: Full Range of Motion, Normal Inspection, Non Tender, Supple, Carotid Bruit Respiratory: Chest Non Tender, Lungs Clear, Normal Breath Sounds, No Accessory Muscle Use, No Respiratory Distress Cardiovascular: Regular Rate, Rhythm, No Edema, No Gallop, No JVD, No Murmur, Normal Peripheral Pulses Gastrointestinal: non tender, soft Extremity: Normal Capillary Refill, Normal Inspection, Normal Range of Motion, Non Tender, No Calf Tenderness, No Pedal Edema Neurologic/Psychiatric: Alert, Oriented x3, No Motor/Sensory Deficits, Normal Mood/Affect Skin: Normal Color, Warm/Dry, Other (abscess left buttock still erythema and induration, drain still in place, looks about same as yesterday) Lymphatic: No Adenopathy Results Lab Laboratory Tests 06/30/17 16:06: Glucometer 230H 06/30/17 20:43: Glucometer 155H 07/01/17 05:36: Glucometer 186H 07/01/17 07:24: White Blood Count 8.9, Red Blood Count 3.45L, Hemoglobin 10.9L, Hematocrit 31L, Mean Corpuscular Volume 91, Mean Corpuscular Hemoglobin 32, Mean Corpuscular Hemoglobin Concent 35, Red Cell Distribution Width 13.8, Platelet Count 200, Mean Platelet Volume 12.2H, Neutrophils (%) (Auto) 72, Lymphocytes (%) (Auto) 15 , Monocytes (%) (Auto) 11, Eosinophils (%) (Auto) 2, Basophils (%) (Auto) 1, Neutrophils # (Auto) 6.4, Lymphocytes # (Auto) 1.3, Monocytes # (Auto) 1.0, Eosinophils # (Auto) 0.2, Basophils # (Auto) 0.1, Sodium Level 134L, Potassium Level 3.6, Chloride Level 109H, Carbon Dioxide Level 13L, Anion Gap 12, Blood Urea Nitrogen 33H, Creatinine 1.52H, Estimat Glomerular Filtration Rate 35, BUN/ Creatinine Ratio 22, Glucose Level 200H, Calcium Level 7.5L, Total Bilirubin 0.4 , Aspartate Amino Transf (AST/SGOT) 14, Alanine Aminotransferase (ALT/SGPT) 12, Alkaline Phosphatase 49, C-Reactive Protein High Sensitivity 3.99H, Total Protein 5.4L, Albumin 2.5L 07/01/17 11:00: Glucometer 214H Microbiology 06/30/17 Gram Stain - Final, Resulted 06/30/17 Wound Culture - Preliminary, Resulted Strep Agalactiae Group B Strep Or Related Genus Assessment/Plan Assessment/Plan Assessment/Plan left buttock cellulitis/abscess dm I and d at bedside with jason drain placement yesterday cultures obtained IV abx- Vanc/Zosyn/Cleocin If no improvement tomorrow will plan on taking to operating room for further surgical intervention. npo after midnihgt Clinical Quality Measures DVT/VTE Risk/Contraindication: Risk Factor Score Per Nursin RFS Level Per Nursing on Admit: 4+=Very High SORIN CISSE DO Jul 01, 2017 15:03
[2017-07-01 16:00] VITALS: BP 97/50
[2017-07-01 20:00] VITALS: BP 94/50
[2017-07-01] MEDS: LINAGLIPTIN (TRADJENTA) 5 MG TABLET PO SCH (21:54)
[2017-07-02] VITALS (11 sets, daily range): BP systolic 73–102; BP diastolic 38–86
[2017-07-02] MEDS: NS IV 1000 ML 1,000 ML IV SCH ×5 (00:09→21:34)
[2017-07-02] MEDS: PIPERACILLIN/TAZOBACTAM 4.5 GM/NS 100 ML IVPB IV SCH ×6 (01:54→21:28)
[2017-07-02] MEDS: LIPASE/AMYLASE/PROTEASE (PANCRELIPASE) 5,000 UNITS CAP PO SCH ×3 (05:13→15:15)
[2017-07-02] MEDS: inSUlin ASPART (NovoLOG) 1 UNIT/0.01 ML (CHARGE PER UNIT) SC SCH ×4 (05:13→20:45)
[2017-07-02] MEDS: CLINDAMYCIN 600 MG/NS 50 ML IVPB IV SCH ×6 (06:20→20:47)
[2017-07-02 06:33] LABS: HEMOGLOBIN 10.4 G/DL (11.5-16.0); MEAN PLATELET VOLUME 11.8 FL (7.4-10.4); RED BLOOD COUNT 3.37 10^6/uL (4.35-5.85); RED CELL DISTRIBUTION WIDTH 14.4 % (10.0-14.5); WHITE BLOOD COUNT 6.5 10^3/uL (4.3-11.0)
[2017-07-02 06:57] LABS: CALCIUM 7.4 MG/DL (8.5-10.1); CREATININE SERUM 1.93 MG/DL (0.60-1.30); POTASSIUM 3.6 MMOL/L (3.6-5.0)
[2017-07-02] MEDS: PANTOPRAZOLE 40 MG (PROTONIX) TAB PO SCH (08:31)
[2017-07-02] MEDS: GABAPENTIN 400 MG (NEURONTIN) CAP PO SCH ×3 (08:31→20:46)
[2017-07-02] MEDS: ENALAPRIL 2.5 MG (VASOTEC) TAB PO SCH (08:32)
[2017-07-02] MEDS: Insulin Degludec (Tresiba Flextouch U-100) SQ SCH (08:40)
[2017-07-02] MEDS ORDERED: FAMOTIDINE 20MG/2ML IV (PEPCID) IVP ONE (10:30)
[2017-07-02] MEDS: morphine INJ 4 MG/ML 1 ML (VIAL/SYRINGE) IV PRN (10:53)
[2017-07-02] MEDS ORDERED: DAKIN'S 1/4 STRENGTH (0.125%) 473 ML BTL TOP SCH (11:00)
--- NOTE | 2017-07-02 11:01 | Progress Note ---
Subjective Date Seen by Provider: Jul 02, 2017 Time Seen by Provider: 10:58 Subjective/Events-last exam left buttock still hurts. Has drainage from it and foul smell. Denies fever and wbc normal. No new complaints. Objective Exam Vital Signs Date Time Temp Pulse Resp B/P (MAP) Pulse Ox O2 Delivery O2 Flow Rate FiO2 07/02/17 08:14 96.9 62 20 98/50 (66) 100 Room Air 07/02/17 00:00 97.8 60 20 94/53 (67) 98 Room Air 07/01/17 20:00 97.1 62 20 94/50 (65) 98 Room Air 07/01/17 16:00 97.6 63 20 97/50 (66) 98 Room Air 07/01/17 12:00 97.4 72 18 103/52 (69) 94 Room Air I & O 07/02/17 07:00 Intake Total 2340 ml Output Total 800 ml Balance 1540 ml Capillary Refill : Less Than 3 Seconds General Appearance: No Apparent Distress, WD/WN, Chronically ill HEENT: PERRL/EOMI, Normal ENT Inspection, Pharynx Normal Neck: Full Range of Motion, Normal Inspection, Non Tender, Supple Respiratory: Chest Non Tender, No Accessory Muscle Use, No Respiratory Distress Cardiovascular: Regular Rate, Rhythm Gastrointestinal: non tender, soft Extremity: Normal Capillary Refill, Normal Inspection, Normal Range of Motion, Non Tender, No Calf Tenderness, No Pedal Edema Neurologic/Psychiatric: Alert, Oriented x3, No Motor/Sensory Deficits, Normal Mood/Affect Skin: Normal Color, Warm/Dry, Other (abscess left buttock still erythema and induration, drain still in place, has some necrotic tissue in wound) Lymphatic: No Adenopathy Results Lab Laboratory Tests 07/01/17 11:00: Glucometer 214H 07/01/17 15:51: Glucometer 201H 07/01/17 20:29: Glucometer 160H 07/02/17 06:15: White Blood Count 6.5, Red Blood Count 3.37L, Hemoglobin 10.4L, Hematocrit 31L, Mean Corpuscular Volume 92, Mean Corpuscular Hemoglobin 31, Mean Corpuscular Hemoglobin Concent 34, Red Cell Distribution Width 14.4, Platelet Count 201, Mean Platelet Volume 11.8H, Sodium Level 135, Potassium Level 3.6, Chloride Level 111H, Carbon Dioxide Level 13L, Anion Gap 11, Blood Urea Nitrogen 31H, Creatinine 1.93H, Estimat Glomerular Filtration Rate 26, BUN/Creatinine Ratio 16 , Glucose Level 55*L, Calcium Level 7.4L 07/02/17 06:20: Glucometer 58*L 07/02/17 07:01: Glucometer 75 07/02/17 09:45: Glucometer 78 Microbiology 06/30/17 Gram Stain - Final, Resulted 06/30/17 Wound Culture - Preliminary, Resulted Strep Agalactiae Group B Staphylococcus Aureus Streptococcus Viridans Gram Negative Stephen Assessment/Plan Assessment/Plan Assessment/Plan left buttock cellulitis/abscess dm will plan taking patient to or for further incision and drainage with debridement and all other indicated procedures she understands risks and benefits and wishes to proceed. To or today Clinical Quality Measures DVT/VTE Risk/Contraindication: Risk Factor Score Per Nursin RFS Level Per Nursing on Admit: 4+=Very High SORIN CISSE DO Jul 02, 2017 11:01 am
[2017-07-02] MEDS ORDERED: fentaNYL INJECTION 100 MCG/2 ML AMP ONE (11:11)
[2017-07-02] MEDS ORDERED: MIDAZOLAM 2 MG/2 ML (VERSED) VIAL ONE (11:11)
[2017-07-02] MEDS ORDERED: ONDANSETRON 4 MG/2 ML (SDV) Z0FRAN ONE (11:19)
[2017-07-02] MEDS ORDERED: proPOfol 200 MG/20 ML (DIPRIVAN) VIAL IV ONE (11:19)
[2017-07-02] MEDS ORDERED: LIDOCAINE PF 2% 5 ML (XYLOCAINE) VIAL ONE (11:19)
[2017-07-02] MEDS ORDERED: LACTATED RINGERS 1,000 ML IV PRN (11:49)
--- NOTE | 2017-07-02 11:51 | Progress Note-Hospitalist ---
Progress Note HPI/CC on Admission CC: Medical management of diabetes in buttock abscess HPI: This is a 61-year-old white female clinic patient of Dr. Butler who presents to the ER with but Dr. You evaluated it and performed I & D and patient was admitted for supportive care and IV antibiotics. Cultures were reviewed and all antibiotics are maintained. Upon entering the room the abscess odor is very apparent inpatient reports her pain is better with pain medication. I reconciled all of her home medication yesterday and her blood sugars are adequate considering her acute illness infection. 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 Diagonsis/Assessment & Plan Patient was seen before going to Family at the bedside Odor from abscess still present and slightly worse Blood sugars satisfactory Labs reviewed Reviewed medication list No fever, vital signs stable, pleasant, oriented 3 Regular rate and rhythm, clear to auscultation bilaterally No edema Laboratory Tests 07/02/17 06:15 Assessment: Buttock abscess status post drainage and cultures appear to be strep placed on empiric antibiotics of broad-spectrum but just now completed surgical incision revealing necrotic fat with severe abscess formation given the fact this has been present for 13 days 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
[2017-07-02] MEDS ORDERED: morphine INJ 10 MG/ML 1ML (SYR OR VIAL) ONE (12:56)
[2017-07-02] MEDS ORDERED: ONDANSETRON 4 MG/2 ML (SDV) Z0FRAN IVP PRN (13:30)
[2017-07-02] MEDS ORDERED: morphine INJ 10 MG/ML 1ML (SYR OR VIAL) IVP PRN (13:30)
--- NOTE | 2017-07-02 13:48 | Progress Note-Post Operative ---
Post-Operative Progess Note Surgeon (s)/Spool Sander (s) Surgeon SORIN CISSE DO Spool Sander: na Pre-Operative Diagnosis left buttock abscess/cellulitis Post-Operative Diagnosis forniere's gangrene Procedure & Operative Findings Date of Procedure 07/02/17 Procedure Performed/Findings incision drainage and debridement 12x8x7 cm removing skin, subcutaneous fat, small amount of fascia and muscle Anesthesia Type general Estimated Blood Loss Estimated blood loss (mL): minimal Specimens/Packing Specimens Removed buttock wound culture SORIN CISSE DO Jul 02, 2017 13:48
[2017-07-02] MEDS ORDERED: TROUGH ORDER-PHARMACY XX NR (14:00)
[2017-07-02] MEDS: VANCOMYCIN 1250 MG/NS 250 ML IVPB IV SCH ×2 (16:14)
[2017-07-02] MEDS: HYDROcodone/APAP 5 MG/325 MG (LORTAB) TAB PO PRN (17:41)
--- NOTE | 2017-07-02 19:04 | OPERATIVE REPORT ---
DATE OF SERVICE: 06/30/2017 PREOPERATIVE DIAGNOSIS: Left buttock abscess. POSTOPERATIVE DIAGNOSIS: Left buttock abscess. PROCEDURE: Incision and drainage with Shree drain placement. SURGEON: Sorin You DO ANESTHESIA: 1% lidocaine. ESTIMATED BLOOD LOSS: Minimal. COMPLICATIONS: None. INDICATIONS: The patient is a 61-year-old female with a left buttock abscess. She does have some slight drainage from the area with a small opening present. She understands risks and benefits of procedure and wished to proceed with procedure. Consent was signed and in the chart. PROCEDURE: The patient was prepped and draped in sterile fashion. Timeout was performed. Local anesthetic was infiltrated into the area over the areas of fluctuance and where the small draining opening was. A scalpel was used to extend the opening and more purulent material erupted. Culture was obtained. A little more superior to this area there was another area of fluctuance which a scalpel was used to make an incision over this area and a little bit more purulent material erupted from which culture was obtained. The wound was then irrigated with copious amounts of irrigation. A finger was inserted through the incision and all loculations were broken up. A [place] drain was placed through both incisions and secured. The area was then washed and dried, sterile bandage was applied. The patient tolerated the procedure well without any complications. The patient is to be admitted for IV antibiotics and continued monitoring of the wound. Job ID: [id number] DocumentID: [id number] Dictated Date: 07/02/2017 15:27:28 Food Service Ambassador Date: 07/02/2017 19:03:55 Dictated By: SORIN YOU DO
[2017-07-02] MEDS: LINAGLIPTIN (TRADJENTA) 5 MG TABLET PO SCH (20:46)
[2017-07-02] MEDS ORDERED: SODIUM BICARB 8.4% 50 MEQ/50 ML (ABBOTT) SYR IV ONE (22:15)
[2017-07-02] MEDS ORDERED: ALBUMIN IV ONE (22:22)
[2017-07-02] MEDS ORDERED: ALBUMIN 5% 12.5 GM/250 ML 250 ML IV SCH (22:30)
[2017-07-02 23:10] LABS: ALBUMIN 2.5 GM/DL (3.2-4.5); BUN/CREATININE RATIO 14; CALCIUM 7.3 MG/DL (8.5-10.1); CARBON DIOXIDE 19 MMOL/L (21-32); CHLORIDE 111 MMOL/L (98-107); CREATININE SERUM 1.73 MG/DL (0.60-1.30); GFR ESTIMATED 30; GLUCOSE 118 MG/DL (70-105); MAGNESIUM 1.4 MG/DL (1.8-2.4); POTASSIUM 3.7 MMOL/L (3.6-5.0); SODIUM 139 MMOL/L (135-145)
[2017-07-02 23:24] LABS: ABG BASE EXCESS -7.4 MMOL/L (-2.5-2.5); ABG OXYGEN SATURATION 98 % (94-100); ABG PCO2 38 MMHG (35-45); ABG PO2 100 MMHG (79-93)
[2017-07-02 23:27] LABS: ALLENS TEST YES-POS; INSPIRED O2 2L; PATIENT TEMP 98.8; VENTILATOR NO
[2017-07-03] VITALS (11 sets, daily range): BP systolic 88–129; BP diastolic 54–99
[2017-07-03] MEDS ORDERED: NS (IVPB) 150 ML ONE (00:57)
[2017-07-03] MEDS ORDERED: CALCIUM GLUC. 10% 4.65 MEQ/10 ML VIAL ONE (00:57)
[2017-07-03] MEDS ORDERED: SODIUM BICARB 8.4% 50 MEQ/50 ML (ABBOTT) SYR IV ONE (01:00)
[2017-07-03] MEDS ORDERED: HALOPERIDOL 5 MG/ML (HALDOL) AMP IM ONE (01:00)
[2017-07-03] MEDS ORDERED: CALCIUM GLUCONATE 10% INJ 4.65 MEQ in NS (IVPB) 50 ML IV ONE ×3 (01:00→02:00)
[2017-07-03] MEDS: MAGNESIUM 1 GM/100 ML IVPB 100 ML IV SCH ×4 (01:18→02:31)
[2017-07-03] MEDS: POTASSIUM CL 10MEQ/50ML IVPB 50 ML IV SCH ×2 (01:26→02:30)
[2017-07-03] MEDS ORDERED: NS IV 1000 ML 1,000 ML IV SCH (02:30)
[2017-07-03] MEDS: PIPERACILLIN/TAZOBACTAM 4.5 GM/NS 100 ML IVPB IV SCH ×2 (03:25)
[2017-07-03 03:38] LABS: BASOPHILS # (AUTO) 0.1 10^3/uL (0.0-0.1); BASOPHILS % (AUTO) 1 % (0-10); EOSINOPHILS # (AUTO) 0.2 10^3/uL (0.0-0.3); EOSINOPHILS % (AUTO) 4 % (0-10); HEMATOCRIT 28 % (35-52); HEMOGLOBIN 9.3 G/DL (11.5-16.0); LYMPHOCYTES # (AUTO) 1.4 X 10^3 (1.0-4.0); LYMPHOCYTES % (AUTO) 23 % (12-44); MEAN CORPUSCULAR HEMOGLOBIN 31 PG (25-34); MEAN CORPUSCULAR HGB CONC 34 G/DL (32-36); MEAN CORPUSCULAR VOLUME 93 FL (80-99); MEAN PLATELET VOLUME 12.1 FL (7.4-10.4); MONOCYTES # (AUTO) 0.9 X 10^3 (0.0-1.0); MONOCYTES % (AUTO) 14 % (0-12); NEUTROPHILS # (AUTO) 3.5 X 10^3 (1.8-7.8); NEUTROPHILS % (AUTO) 58 % (42-75); PLATELET COUNT 210 10^3/uL (130-400); RED BLOOD COUNT 2.99 10^6/uL (4.35-5.85); RED CELL DISTRIBUTION WIDTH 14.9 % (10.0-14.5)
[2017-07-03 03:58] LABS: ALANINE AMINOTRANSFERASE 9 U/L (0-55); ALBUMIN 2.9 GM/DL (3.2-4.5); ALKALINE PHOSPHATASE 37 U/L (40-136); BILIRUBIN,TOTAL 0.4 MG/DL (0.1-1.0); BUN/CREATININE RATIO 13; CALCIUM 7.4 MG/DL (8.5-10.1); CARBON DIOXIDE 15 MMOL/L (21-32); CHLORIDE 111 MMOL/L (98-107); CREATININE SERUM 1.65 MG/DL (0.60-1.30); GFR ESTIMATED 32; GLUCOSE 105 MG/DL (70-105); MAGNESIUM 2.8 MG/DL (1.8-2.4); SODIUM 139 MMOL/L (135-145); TOTAL PROTEIN 5.6 GM/DL (6.4-8.2)
[2017-07-03] MEDS: LIPASE/AMYLASE/PROTEASE (PANCRELIPASE) 5,000 UNITS CAP PO SCH (05:19)
[2017-07-03] MEDS: inSUlin ASPART (NovoLOG) 1 UNIT/0.01 ML (CHARGE PER UNIT) SC SCH (05:20)
--- NOTE | 2017-07-03 05:50 | Diagnostic Imaging Report ---
EXAM: CHEST 1 VIEW, AP/PA ONLY INDICATION: Dyspnea. COMPARISON: Chest radiograph 02/16/2009. FINDINGS: Normal heart size and pulmonary vascularity. No focal pulmonary opacity, pleural effusion or pneumothorax. No acute osseous findings. No significant change. IMPRESSION: No acute cardiopulmonary findings. Dictated by: Dictated on workstation # [id number]
[2017-07-03] MEDS: CLINDAMYCIN 600 MG/NS 50 ML IVPB IV SCH ×2 (06:08)
--- NOTE | 2017-07-03 06:40 | Progress Note ---
Subjective Date Seen by Provider: Jul 03, 2017 Time Seen by Provider: 06:35 Subjective/Events-last exam Patient sleepy but awakens with no issue. Pain controlled. Left wound no significant drainage. Patient has has systolic blood pressures in 70-80 and metabolic acidosis. EICU has been managing. Has received 2 L NS and 1 L 5% albumin and blood pressures improved. Lactic acid 0.79 and WBC 6 On Vancomycin Zosyn and Cleocin Objective Exam Vital Signs Date Time Temp Pulse Resp B/P (MAP) Pulse Ox O2 Delivery O2 Flow Rate FiO2 07/03/17 06:00 74 22 111/66 (81) 92 Nasal Cannula 2.00 07/03/17 05:00 75 22 129/67 (87) 94 Nasal Cannula 2.00 07/03/17 04:00 79 20 127/54 (78) 97 Nasal Cannula 2.00 07/03/17 04:00 Nasal Cannula 2.00 07/03/17 03:00 75 13 93/55 (68) 97 Nasal Cannula 2.00 07/03/17 02:00 74 18 97/63 (74) 98 Nasal Cannula 2.00 07/03/17 01:00 70 14 127/75 (92) 96 Nasal Cannula 2.00 07/03/17 01:00 70 07/03/17 00:00 Nasal Cannula 2.00 07/03/17 00:00 64 13 88/75 (79) 95 Nasal Cannula 2.00 07/02/17 23:00 66 9 99/53 (68) 100 Nasal Cannula 2.00 07/02/17 22:00 69 16 84/58 (67) 99 Nasal Cannula 2.00 07/02/17 21:19 Nasal Cannula 2.00 07/02/17 21:00 62 8 75/39 (51) 99 Nasal Cannula 2.00 07/02/17 20:49 Nasal Cannula 2.00 07/02/17 20:00 97.3 67 20 73/38 (50) 95 Room Air 07/02/17 20:00 Nasal Cannula 2.00 07/02/17 19:00 68 07/02/17 19:00 68 11 92/58 (69) 92 Room Air 07/02/17 18:11 96.9 07/02/17 18:00 67 11 95/67 (76) 95 Room Air 07/02/17 17:00 68 20 102/86 (91) 98 Room Air 07/02/17 16:00 61 16 81/55 (64) 94 Room Air 07/02/17 15:00 66 22 93/52 (66) 99 Room Air 07/02/17 08:14 96.9 62 20 98/50 (66) 100 Room Air I & O 07/03/17 07:00 Intake Total 2950 ml Output Total 730 ml Balance 2220 ml Capillary Refill : Less Than 3 Seconds General Appearance: No Apparent Distress, WD/WN, Chronically ill HEENT: PERRL/EOMI, Normal ENT Inspection, Pharynx Normal Neck: Full Range of Motion, Normal Inspection, Non Tender, Supple Respiratory: Chest Non Tender, No Accessory Muscle Use, No Respiratory Distress Cardiovascular: Regular Rate, Rhythm Gastrointestinal: non tender, soft Extremity: Normal Capillary Refill, Normal Inspection, Normal Range of Motion, Non Tender, No Calf Tenderness, No Pedal Edema Neurologic/Psychiatric: Alert, Oriented x3, No Motor/Sensory Deficits, Normal Mood/Affect Skin: Normal Color, Warm/Dry, Other (no drainage, less erythema and induration , minimal slough) Lymphatic: No Adenopathy Results Lab Laboratory Tests 07/02/17 07:01: Glucometer 75 07/02/17 09:45: Glucometer 78 07/02/17 11:50: Glucometer 84 07/02/17 13:20: Glucometer 71 07/02/17 14:12: Vancomycin Level Trough 19.2 07/02/17 15:39: Glucometer 84 07/02/17 20:28: Glucometer 173H 07/02/17 22:44: Hemoglobin 9.2L, Sodium Level 139, Potassium Level 3.7, Chloride Level 111H, Carbon Dioxide Level 19L, Anion Gap 9, Blood Urea Nitrogen 24H, Creatinine 1.73H , Estimat Glomerular Filtration Rate 30, BUN/Creatinine Ratio 14, Glucose Level 118H, Lactic Acid Level 0.82, Calcium Level 7.3L, Magnesium Level 1.4L, Troponin I < 0.30, Albumin 2.5L 07/02/17 23:15: Blood Gas Puncture Site LEFT RADIAL, Blood Gas Patient Temperature 98.8, Arterial Blood pH 7.30*L, Arterial Blood Partial Pressure CO2 38, Arterial Blood Partial Pressure O2 100H, Arterial Blood HCO3 18L, Arterial Blood Total CO2 19.0L, Arterial Blood Oxygen Saturation 98, Arterial Blood Base Excess -7.4L , Stevan Test YES-POS, Blood Gas Ventilator Setting NO, Blood Gas Inspired Oxygen 2L 07/03/17 03:21: White Blood Count 6.0, Red Blood Count 2.99L, Hemoglobin 9.3L, Hematocrit 28L, Mean Corpuscular Volume 93, Mean Corpuscular Hemoglobin 31, Mean Corpuscular Hemoglobin Concent 34, Red Cell Distribution Width 14.9H, Platelet Count 210, Mean Platelet Volume 12.1H, Neutrophils (%) (Auto) 58, Lymphocytes (%) (Auto) 23 , Monocytes (%) (Auto) 14H, Eosinophils (%) (Auto) 4, Basophils (%) (Auto) 1, Neutrophils # (Auto) 3.5, Lymphocytes # (Auto) 1.4, Monocytes # (Auto) 0.9, Eosinophils # (Auto) 0.2, Basophils # (Auto) 0.1, Sodium Level 139, Potassium Level 5.0, Chloride Level 111H, Carbon Dioxide Level 15L, Anion Gap 13, Blood Urea Nitrogen 22H, Creatinine 1.65H, Estimat Glomerular Filtration Rate 32, BUN/ Creatinine Ratio 13, Glucose Level 105, Lactic Acid Level 0.79, Calcium Level 7.4L, Magnesium Level 2.8H, Total Bilirubin 0.4, Aspartate Amino Transf (AST/ SGOT) 18, Alanine Aminotransferase (ALT/SGPT) 9, Alkaline Phosphatase 37L, Troponin I < 0.30, B-Type Natriuretic Peptide 731.1H, Total Protein 5.6L, Albumin 2.9L Microbiology 06/30/17 Gram Stain - Final, Resulted 06/30/17 Wound Culture - Preliminary, Resulted Strep Agalactiae Group B Staphylococcus Aureus Streptococcus Viridans Gram Negative Stephen Assessment/Plan Assessment/Plan 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 On Vancomycin/Zosyn/Cleocin at this time no further debridement of wound but may need further debridement. would benefit from ID and fulling machine operator discussed with family who would like patient transferred to Arranged transfer to Clinical Quality Measures DVT/VTE Risk/Contraindication: Risk Factor Score Per Nursin RFS Level Per Nursing on Admit: 4+=Very High SORIN CISSE DO Jul 03, 2017 06:40
--- NOTE | 2017-07-03 08:57 | OPERATIVE REPORT ---
DATE OF SERVICE: 07/02/2017 PREOPERATIVE DIAGNOSIS: Left buttock abscess, cellulitis. POSTOPERATIVE DIAGNOSIS: Susana's gangrene. PROCEDURE: Incision and drainage and debridement, 12 x 8 x 7 cm, removing skin, subcutaneous fat, a small amount of fascia and muscle. SURGEON: Julius You DO ANESTHESIA: General. ESTIMATED BLOOD LOSS: Minimal. COMPLICATIONS: None. INDICATIONS: The patient is a 61-year-old female who has had an abscess and cellulitis who presented after having it for nine days. She had incision and drainage performed and a [place] drain was also placed at that time. She was admitted for IV antibiotics. Yesterday, the area appeared to be about the same, but did not have any significant changes. Today, when the wound was evaluated, it appeared that she had some more necrotic tissue present. Therefore, we discussed incision, drainage and debridement and she understands risks and benefits and wishes to proceed. PROCEDURE: The patient was taken to the operating suite. She was prepped and draped in a sterile fashion in the lithotomy position. The patient had erythematous changes around the left buttocks all the way up to the left side of her labia with surrounding induration. The [place] drain was removed. The skin was opened up, extended further along parallel to her labia and buttock over the area of induration and necrotic tissue. The wound was opened, there was a large amount of necrotic tissue present, which was debrided using cautery. A small amount of skin that was necrotic was also removed with cautery cut dissection. The tissue continued to be grasped and retracted to where it could be removed using cautery. The wound was down to a healthy fat, muscle and fascia. A small amount of fascia and muscle had to be removed too because of the necrotic appearance. The wound was then irrigated with copious amounts of irrigation and also with 0.25% Dakin solution. The patient then had the wound packed with Kerlix, which had been soaked with 0.25% Dakin solution and wringed out. The areas were washed and dried. Sterile bandage was applied. The patient tolerated the procedure well without complication. She was taken to recovery room in stable condition; however, overall guarded. The family was discussed the significance of this infection and a possible need for further surgical intervention and other possible interventions and possible outcomes including . Job ID: [id number] DocumentID: [id number] Dictated Date: 07/02/2017 14:53:05 Wire Preparation Machine Tender Date: 07/02/2017 18:50:01 Dictated By: JULIUS YOU DO
[2017-07-03] MEDS: morphine INJ 4 MG/ML 1 ML (VIAL/SYRINGE) IV PRN (09:10)
[2017-07-03] MEDS ORDERED: VITAMIN D2 50,000 UNITS (1.25 MG) CAP PO SCH (15:30)
== END 2017-07-03 09:10 | disposition short-term general hospital (02) | DRG 602 ==
LOC: EDUNIT# 10:57 → ER 11:00 → 4TH 12:20 → ICU 07-02 14:05
PROVIDERS: ADMIT Surgery; ATTEND Surgery
PROC: 0H98XZZ Drainage of Buttock Skin, External Approach (ICD-10-PCS; principal; 2017-06-30)
PROC: 0J993ZZ Drainage of Buttock Subcutaneous Tissue and Fascia, Percutaneous Approach (ICD-10-PCS; 2017-07-02)
PROC: 0J9B3ZZ Drainage of Perineum Subcutaneous Tissue and Fascia, Percutaneous Approach (ICD-10-PCS; 2017-07-02)
DX: L02.31 Cutaneous abscess of buttock (principal); A41.9 Sepsis, unspecified organism; N76.89 Other specified inflammation of vagina and vulva; I12.9 Hypertensive chronic kidney disease with stage 1 through stage 4 chronic kidney disease, or unspecified chronic kidney disease; N18.3 Chronic kidney disease, stage 3 (moderate); E11.22 Type 2 diabetes mellitus with diabetic chronic kidney disease; E11.65 Type 2 diabetes mellitus with hyperglycemia; K86.1 Other chronic pancreatitis; K90.9 Intestinal malabsorption, unspecified; I73.9 Peripheral vascular disease, unspecified; K21.9 Gastro-esophageal reflux disease without esophagitis; D63.8 Anemia in other chronic diseases classified elsewhere; B95.5 Unspecified streptococcus as the cause of diseases classified elsewhere; Z79.4 Long term (current) use of insulin; Z87.891 Personal history of nicotine dependence; Z95.828 Presence of other vascular implants and grafts
CPT/HCPCS: 36415; 71010; 80048; 80053; 80202; 82040; 82330; 82805; 82962; 83605; 83735; 83880; 84484; 85018; 85025; 85027; 86141; 87070; 87075; 87077; 87081; 87186; 87205

== ENCOUNTER → 2017-07-10 | Outpatient (CLI) | payer OTHER ==
[~2017-07-10] MED LIST changes: +CNC1KV IJ; +ENAL2.5T PO; +ERGO50006 PO; +GABA-490 PO; +IBUP-30 PO; +LIPA1CAP4 PO; +NAPR500T4 PO; +PANT40TA2 PO
== END ==
LOC: WOUNDCARE 13:05
PROVIDERS: ATTEND Surgery
DX: E11.622 Type 2 diabetes mellitus with other skin ulcer (principal); L98.492 Non-pressure chronic ulcer of skin of other sites with fat layer exposed; L02.33 Carbuncle of buttock; S31.829A Unspecified open wound of left buttock, initial encounter

== ENCOUNTER → 2017-07-19 | Outpatient (CLI) | payer OTHER | LOC: WOUNDCARE 13:19 | PROVIDERS: ATTEND Surgery | DX: E11.622 Type 2 diabetes mellitus with other skin ulcer (principal); L98.492 Non-pressure chronic ulcer of skin of other sites with fat layer exposed; S31.829A Unspecified open wound of left buttock, initial encounter; L02.33 Carbuncle of buttock | CPT/HCPCS: 11042; 11045 ==

== ENCOUNTER → 2017-07-24 | Outpatient (CLI) | payer OTHER | LOC: WOUNDCARE 08:28 | PROVIDERS: ATTEND Surgery | DX: E11.622 Type 2 diabetes mellitus with other skin ulcer (principal); L98.492 Non-pressure chronic ulcer of skin of other sites with fat layer exposed; S31.829A Unspecified open wound of left buttock, initial encounter; L02.33 Carbuncle of buttock; B95.62 Methicillin resistant Staphylococcus aureus infection as the cause of diseases classified elsewhere | CPT/HCPCS: 11042; 11045; 87070; 87075; 87205 ==

== ENCOUNTER → 2017-07-31 | Outpatient (CLI) | payer OTHER | LOC: WOUNDCARE 08:13 | PROVIDERS: ATTEND Surgery | DX: E11.622 Type 2 diabetes mellitus with other skin ulcer (principal); L98.492 Non-pressure chronic ulcer of skin of other sites with fat layer exposed; S31.829A Unspecified open wound of left buttock, initial encounter; B95.62 Methicillin resistant Staphylococcus aureus infection as the cause of diseases classified elsewhere | CPT/HCPCS: 11042; 11045 ==

== ENCOUNTER → 2017-08-07 | Outpatient (CLI) | payer OTHER | LOC: WOUNDCARE 08:15 | PROVIDERS: ATTEND Surgery | DX: E11.621 Type 2 diabetes mellitus with foot ulcer (principal); E11.622 Type 2 diabetes mellitus with other skin ulcer; I70.235 Atherosclerosis of native arteries of right leg with ulceration of other part of foot; L97.512 Non-pressure chronic ulcer of other part of right foot with fat layer exposed; L98.492 Non-pressure chronic ulcer of skin of other sites with fat layer exposed; S31.829A Unspecified open wound of left buttock, initial encounter; B95.62 Methicillin resistant Staphylococcus aureus infection as the cause of diseases classified elsewhere | CPT/HCPCS: 11042; 11045; 87070; 87075; 87205 ==

== ENCOUNTER → 2017-08-16 | Outpatient (CLI) | payer OTHER | LOC: WOUNDCARE 08:13 | PROVIDERS: ATTEND Surgery | DX: E11.622 Type 2 diabetes mellitus with other skin ulcer (principal); L98.492 Non-pressure chronic ulcer of skin of other sites with fat layer exposed; E11.621 Type 2 diabetes mellitus with foot ulcer; L97.512 Non-pressure chronic ulcer of other part of right foot with fat layer exposed; S31.829A Unspecified open wound of left buttock, initial encounter; I70.235 Atherosclerosis of native arteries of right leg with ulceration of other part of foot | CPT/HCPCS: 99213 ==

== ENCOUNTER → 2017-08-21 | Outpatient (CLI) | payer OTHER ==
[~2017-08-21] MED LIST changes: +NAPR-915 PO; -NAPR500T4 PO
== END ==
LOC: WOUNDCARE 08:04
PROVIDERS: ATTEND Surgery
DX: E11.621 Type 2 diabetes mellitus with foot ulcer (principal); L97.512 Non-pressure chronic ulcer of other part of right foot with fat layer exposed; E11.622 Type 2 diabetes mellitus with other skin ulcer; L98.492 Non-pressure chronic ulcer of skin of other sites with fat layer exposed; I70.235 Atherosclerosis of native arteries of right leg with ulceration of other part of foot; S31.829A Unspecified open wound of left buttock, initial encounter
CPT/HCPCS: 11042; 11045

== ENCOUNTER → 2017-08-21 | Outpatient (CLI) | payer OTHER ==
[~2017-08-21] MED LIST changes: -NAPR-915 PO; +NAPR500T4 PO
[2017-08-21 09:46] LABS: ALBUMIN 3.4 GM/DL (3.2-4.5); BILIRUBIN,TOTAL 0.2 MG/DL (0.1-1.0); CREATININE SERUM 1.47 MG/DL (0.60-1.30); POTASSIUM 4.3 MMOL/L (3.6-5.0); TOTAL PROTEIN 6.8 GM/DL (6.4-8.2)
== END ==
LOC: LAB 09:06
PROVIDERS: ATTEND Surgery
DX: E11.621 Type 2 diabetes mellitus with foot ulcer (principal); L97.512 Non-pressure chronic ulcer of other part of right foot with fat layer exposed; S31.829A Unspecified open wound of left buttock, initial encounter
CPT/HCPCS: 36415; 80053; 84134

== ENCOUNTER → 2017-08-28 | Outpatient (CLI) | payer OTHER ==
[~2017-08-28] MED LIST changes: +NAPR-915 PO; -NAPR500T4 PO
== END ==
LOC: WOUNDCARE 08:23
PROVIDERS: ATTEND Surgery
DX: E11.622 Type 2 diabetes mellitus with other skin ulcer (principal); L98.492 Non-pressure chronic ulcer of skin of other sites with fat layer exposed; E11.621 Type 2 diabetes mellitus with foot ulcer; L97.512 Non-pressure chronic ulcer of other part of right foot with fat layer exposed; I70.235 Atherosclerosis of native arteries of right leg with ulceration of other part of foot; S31.829A Unspecified open wound of left buttock, initial encounter
CPT/HCPCS: 11042; 11044; 11045

== ENCOUNTER → 2017-09-04 | Outpatient (CLI) | payer OTHER | LOC: WOUNDCARE 08:28 | PROVIDERS: ATTEND Surgery | DX: E11.622 Type 2 diabetes mellitus with other skin ulcer (principal); L98.492 Non-pressure chronic ulcer of skin of other sites with fat layer exposed; S31.829A Unspecified open wound of left buttock, initial encounter; L97.512 Non-pressure chronic ulcer of other part of right foot with fat layer exposed; I70.235 Atherosclerosis of native arteries of right leg with ulceration of other part of foot; E11.621 Type 2 diabetes mellitus with foot ulcer | CPT/HCPCS: 11042; 11045 ==

== ENCOUNTER → 2017-09-13 | Outpatient (CLI) | payer OTHER | LOC: WOUNDCARE 08:48 | PROVIDERS: ATTEND Surgery | DX: E11.622 Type 2 diabetes mellitus with other skin ulcer (principal); L98.492 Non-pressure chronic ulcer of skin of other sites with fat layer exposed; E11.621 Type 2 diabetes mellitus with foot ulcer; L97.512 Non-pressure chronic ulcer of other part of right foot with fat layer exposed; I70.235 Atherosclerosis of native arteries of right leg with ulceration of other part of foot; S31.829A Unspecified open wound of left buttock, initial encounter | CPT/HCPCS: 11042 ==

== ENCOUNTER → 2017-09-18 | Outpatient (CLI) | payer OTHER | LOC: WOUNDCARE 08:10 | PROVIDERS: ATTEND Surgery | DX: E11.622 Type 2 diabetes mellitus with other skin ulcer (principal); L98.492 Non-pressure chronic ulcer of skin of other sites with fat layer exposed; E11.621 Type 2 diabetes mellitus with foot ulcer; L97.512 Non-pressure chronic ulcer of other part of right foot with fat layer exposed; I70.235 Atherosclerosis of native arteries of right leg with ulceration of other part of foot; S31.829A Unspecified open wound of left buttock, initial encounter | CPT/HCPCS: 11042 ==

== ENCOUNTER → 2017-09-25 | Outpatient (CLI) | payer OTHER | LOC: WOUNDCARE 08:11 | PROVIDERS: ATTEND Surgery | DX: E11.622 Type 2 diabetes mellitus with other skin ulcer (principal); L98.492 Non-pressure chronic ulcer of skin of other sites with fat layer exposed; S31.829A Unspecified open wound of left buttock, initial encounter | CPT/HCPCS: 11042 ==

== ENCOUNTER → 2017-10-02 | Outpatient (CLI) | payer OTHER | LOC: WOUNDCARE 08:30 | PROVIDERS: ATTEND Surgery | DX: E11.622 Type 2 diabetes mellitus with other skin ulcer (principal); L98.492 Non-pressure chronic ulcer of skin of other sites with fat layer exposed; S31.829A Unspecified open wound of left buttock, initial encounter | CPT/HCPCS: 11042 ==

== ENCOUNTER → 2017-10-09 | Outpatient (CLI) | payer OTHER | LOC: WOUNDCARE 08:42 | PROVIDERS: ATTEND Surgery | DX: E11.622 Type 2 diabetes mellitus with other skin ulcer (principal); L98.492 Non-pressure chronic ulcer of skin of other sites with fat layer exposed; S31.829A Unspecified open wound of left buttock, initial encounter | CPT/HCPCS: 11042 ==

== ENCOUNTER → 2017-10-16 | Outpatient (CLI) | payer OTHER | LOC: WOUNDCARE 08:32 | PROVIDERS: ATTEND Surgery | DX: E11.622 Type 2 diabetes mellitus with other skin ulcer (principal); L98.492 Non-pressure chronic ulcer of skin of other sites with fat layer exposed; S31.829A Unspecified open wound of left buttock, initial encounter | CPT/HCPCS: 11042 ==

== ENCOUNTER → 2017-10-30 | Outpatient (CLI) | payer OTHER | LOC: WOUNDCARE 08:19 | PROVIDERS: ATTEND Nurse Practitioner | DX: E11.622 Type 2 diabetes mellitus with other skin ulcer (principal); L98.492 Non-pressure chronic ulcer of skin of other sites with fat layer exposed; S31.829A Unspecified open wound of left buttock, initial encounter | CPT/HCPCS: 11042 ==

== ENCOUNTER → 2017-11-06 | Outpatient (CLI) | payer OTHER | LOC: WOUNDCARE 08:39 | PROVIDERS: ATTEND Surgery | DX: E11.622 Type 2 diabetes mellitus with other skin ulcer (principal); L98.492 Non-pressure chronic ulcer of skin of other sites with fat layer exposed; S31.829A Unspecified open wound of left buttock, initial encounter | CPT/HCPCS: 17250 ==

== ENCOUNTER → 2017-11-13 | Outpatient (CLI) | payer OTHER | LOC: WOUNDCARE 08:43 | PROVIDERS: ATTEND Surgery | DX: L92.8 Other granulomatous disorders of the skin and subcutaneous tissue (principal); E11.622 Type 2 diabetes mellitus with other skin ulcer; L98.492 Non-pressure chronic ulcer of skin of other sites with fat layer exposed; S31.829A Unspecified open wound of left buttock, initial encounter | CPT/HCPCS: 99212 ==

== ENCOUNTER → 2017-12-22 | Outpatient (CLI) | payer OTHER ==
--- NOTE | 2017-12-22 16:56 | Diagnostic Imaging Report ---
EXAMINATION: Magnetic resonance imaging of the left knee without intravenous contrast DATE: 12/22/2017. COMPARISON: None. INDICATION: 62-year-old female, left knee pain and instability. TECHNIQUE: Multiplanar, multisequence non contrast enhanced MR imaging was accomplished. FINDINGS: MENISCI: There is an extensive complex tear without small thyroid correction components involving the anterior horn, body, and posterior horn of the lateral meniscus. There is signal within the medial meniscus not meeting strict MRI criteria for tear. LIGAMENTS AND TENDONS: The anterior and posterior cruciate ligaments are intact. The medial collateral ligament is intact. The iliotibial band, mid third lateral capsular ligament, fibular collateral ligament, biceps femoris tendon and conjoined tendon are intact. The quadriceps tendon and patella ligament are intact. JOINT: There are broad areas of full-thickness cartilage loss involving the mid weightbearing portion of the lateral femoral condyle and lateral tibial plateau. The medial and patellofemoral compartment cartilage is intact. There is a small knee joint effusion. There is no intra-articular body or prominent synovitis. BONE: There is unremarkable bone marrow signal. Specifically, negative for fracture, osteomyelitis, osteonecrosis, or marrow replacing process. BURSAE AND SOFT TISSUES: There is a small amount of fluid in the popliteal fossa without sizable Damon's cyst. There is nonspecific prepatellar subcutaneous edema. There is low level edema in the medial head of gastrocnemius muscle which may reflect partial low-grade muscle strain. IMPRESSION: 1. Extensive complex multidirectional tear involving the entire lateral meniscus. 2. Signal in the medial meniscus meeting strict MRI criteria for tear. 3. Intact anterior and posterior crucial ligaments. 4. Severe lateral compartment osteoarthritis. Small knee joint effusion without intra-articular body or prominent synovitis. 5. No acute fracture or bone contusion. Dictated by: Dictated on workstation # [id number]
== END ==
LOC: RAD 15:04
PROVIDERS: ATTEND Internal Medicine
DX: S83.282A Other tear of lateral meniscus, current injury, left knee, initial encounter (principal); M17.12 Unilateral primary osteoarthritis, left knee; M23.52 Chronic instability of knee, left knee
CPT/HCPCS: 73721

== ENCOUNTER 2018-02-15 09:55 | Outpatient (CLI) | payer OTHER ==
[~2018-02-15] VITALS: Ht 162.6 cm; Wt 93.2 kg
[2018-02-15] MEDS ORDERED: PANT40TA3 PO (10:09)
[2018-02-15] MEDS ORDERED: INSU100I32 SQ (10:09)
[2018-02-15 10:16] VITALS: BP 140/77
== END 2018-02-15 12:35 | disposition home or self-care (01) ==
LOC: PREOP 09:55
PROVIDERS: ATTEND Orthopaedic Surgery
DX: Z01.818 Encounter for other preprocedural examination (principal)
CPT/HCPCS: 87081

== ENCOUNTER → 2018-02-19 | Outpatient (CLI) | payer OTHER ==
--- NOTE | 2018-02-19 17:51 | Diagnostic Imaging Report ---
INDICATION: Fall with right ankle pain. FINDINGS: AP, oblique, and lateral views of the right ankle are obtained. There are small ossific fragments adjacent to the medial and lateral malleoli. These appear to be fairly well corticated. There is ankle swelling. Posterior and plantar calcaneal spurring is noted. There is no abnormal lytic or sclerotic focus. IMPRESSION: Ossific fragments adjacent to the medial and lateral malleoli are likely due to avulsion fractures. These are likely chronic in nature, although clinical correlation is recommended. Given ankle swelling, associated ligamentous injury is not excluded. Dictated by: Dictated on workstation # [id number]
--- NOTE | 2018-02-19 17:55 | Diagnostic Imaging Report ---
INDICATION: Fall with right foot pain. AP, oblique and lateral views of the right foot are obtained. FINDINGS: No definite fracture is identified. There is no evidence of dislocation. There is lucency involving the distal aspect of the fifth distal phalanx. No significant inflammation is identified. There are small posterior and plantar calcaneal spurs. No radiopaque foreign body is seen. IMPRESSION: Lysis of fifth terminal tuft of uncertain significance. This may be related to old injury although clinical correlation is recommended. No acute fracture or malalignment is seen. Dictated by: Dictated on workstation # [id number]
== END ==
LOC: RAD 17:12
PROVIDERS: ATTEND Internal Medicine
DX: M25.871 Other specified joint disorders, right ankle and foot (principal); W19.XXXA Unspecified fall, initial encounter
CPT/HCPCS: 73610; 73630

== ENCOUNTER 2018-03-14 07:43 | Day surgery (SDC) | payer OTHER ==
--- NOTE | 2018-02-12 16:52 | HISTORY AND PHYSICAL ---
DATE OF SERVICE: DATE OF ADMISSION: 02/21/2018. Date of service will be 02/21/2018, for left knee arthroscopy. HISTORY OF PRESENT ILLNESS: The patient is a 62-year-old female with complaints of progressive worsening knee pain. She had a fall several months ago and since then has had lateral left knee pain with catching, locking and giving way. She denies prior history of knee problems. Due to functional impairment and failure to improve with conservative measures, the patient elected to proceed with surgical intervention. REVIEW OF SYSTEMS: No chest pain. No shortness of breath. No dysuria. PAST MEDICAL HISTORY: Diabetes, neck pain, hyperlipidemia, and right lower extremity vascular stent. PAST SURGICAL HISTORY: Right shoulder cholecystectomy, and pressure ulceration. FAMILY HISTORY: Noncontributory. PRIMARY CARE PROVIDER: Dr. Butler. MEDICATIONS: 1. Sucralfate. 2. Enalapril. 3. Vitamin D. 4. Pantoprazole. 5. Lovastatin. 6. Aspirin. 7. Gabapentin. 8. Januvia. 9. Cyanocobalamin. 10. Tresiba. ALLERGIES: No known drug allergies. SOCIAL HISTORY: The patient denies alcohol or tobacco use. RADIOGRAPHS: Reveal mild lateral joint space narrowing without evidence of fracture or dislocation. MRI reveals a degenerative change of the lateral compartment with an extensive complex tear of the lateral meniscus. PHYSICAL EXAMINATION: GENERAL: The patient is well developed, well-nourished, in no acute distress. HEENT: Normocephalic, atraumatic. Pupils are equal, round, reactive to light. Oropharynx is clear. NECK: Supple. No lymphadenopathy. LUNGS: Clear to auscultation bilaterally. HEART: Regular rate and rhythm. ABDOMEN: Soft, nontender, nondistended. EXTREMITIES: The left knee demonstrates a moderate effusion. She ambulates with an antalgic gait. She is tender along her lateral joint and has pain laterally with Disha's. No varus valgus laxity, negative anterior and posterior drawer. Range of motion is 0/0/130. 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 PLAN: Left knee arthroscopy with partial lateral meniscectomy and chondroplasty. The risks, benefits, options, ramifications and recovery have been discussed at length with the patient. She understands and wishes to proceed. Job ID: [id number] DocumentID: [id number] Dictated Date: 02/12/2018 16:16:50 Interactive Media Designer Date: 02/12/2018 16:51:08 Dictated By: ELIZABET DAY MD
--- NOTE | 2018-03-12 11:18 | HISTORY AND PHYSICAL ---
DATE OF SERVICE: 03/14/2018 ADMISSION HISTORY AND PHYSICAL This will be for outpatient surgery for left knee arthroscopy on 03/14/2018. HISTORY: The patient is a 62-year-old female with progressive worsening left knee pain. She had a fall several months ago and since then has had lateral left knee pain with catching, locking and giving way. She denies prior history of knee problems. Due to functional impairment and failure to improve with conservative measures, the patient has elected to proceed with surgical intervention. REVIEW OF SYSTEMS: No chest pain. No shortness of breath. No dysuria. PAST MEDICAL HISTORY: Diabetes, hyperlipidemia, right lower extremity vascular stent. PAST SURGICAL HISTORY: Right shoulder, cholecystectomy and pressure ulceration of the sacrum. FAMILY HISTORY: Noncontributory. PRIMARY CARE PROVIDER: Dr. Butler. MEDICATIONS: 1. Sucralfate. 2. Enalapril. 3. Vitamin D. 4. Pantoprazole. 5. Lovastatin. 6. Aspirin. 7. Gabapentin. 8. Januvia. 9. Cyanocobalamin. 10. Tresiba. ALLERGIES: No known. SOCIAL HISTORY: The patient denies alcohol and tobacco use. RADIOGRAPHS: Reveal mild lateral joint space and without evidence of fracture or dislocation. MRI reveals degenerative change in the lateral compartment and extensive complex tear of the lateral meniscus. PHYSICAL EXAMINATION: GENERAL: The patient is well developed, well-nourished, in no acute distress. HEENT: Normocephalic and atraumatic. Pupils are equal, round and reactive to light. Oropharynx is clear. NECK: Supple. No lymphadenopathy. LUNGS: Clear to auscultation bilaterally. HEART: Regular rate and rhythm. ABDOMEN: Soft, nontender, nondistended. EXTREMITIES EXAM: The left knee demonstrates moderate effusion. She ambulates with an antalgic gait. She is tender along her lateral joint line, has pain laterally with Disha's. There is no varus valgus laxity. Negative anterior and posterior drawer. Range of motion is 0/0/130. 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 PLAN: Left knee arthroscopy with partial lateral meniscectomy and chondroplasty. The risks, benefits, options and ramifications have been discussed at length with the patient. She understands and wishes to proceed. Job ID: [id number] DocumentID: [id number] Dictated Date: 03/12/2018 10:46:00 [place] Mill Operator Date: 03/12/2018 11:16:55 Dictated By: ELIZABET DAY MD
[~2018-03-14] VITALS: Ht 162.6 cm; Wt 93.2 kg
[2018-03-14 07:45] VITALS: BP 144/78
[2018-03-14] MEDS ORDERED: morphine PF (DURAMORPH) 10 MG/10 ML AMP ONE (07:46)
[2018-03-14] MEDS ORDERED: BUPIVACAINE 0.25% 30 ML (SENSORCAINE) VIAL ONE (07:47)
--- NOTE | 2018-03-14 07:51 | Progress Note-Pre Operative ---
Pre-Operative Progress Note H&P Reviewed The H&P was reviewed, patient examined and no changes noted. Date Seen by Provider: Mar 14, 2018 Time Seen by Provider: 07:51 Date H&P Reviewed: Mar 14, 2018 Time H&P Reviewed: 07:51 Pre-Operative Diagnosis: left knee lateral meniscus tear and chondromalacia ELIZABET DAY MD Mar 14, 2018 07:51
--- NOTE | 2018-03-14 07:53 | Progress Note-Post Operative ---
Post-Operative Progess Note Surgeon (s)/Deputy Manager (s) Surgeon ELIZABET DAY MD Deputy Manager: Arturo Brown Pre-Operative Diagnosis left knee lateral meniscus tear and chondromalacia Post-Operative Diagnosis left knee lateral meniscus tear and chondromalacia of the patella, lateral femoral condlye, and lateral tibial plateau Procedure & Operative Findings Date of Procedure 03/14/18 Procedure Performed/Findings left knee arthroscopic partial lateral meniscectomy and chondroplasty of the patella, lateral femoral condyle and lateral tibial plateau Anesthesia Type GETA Estimated Blood Loss Estimated blood loss (mL): minimal Specimens/Packing Specimens Removed none Packing: none ELIZABET DAY MD Mar 14, 2018 07:53
[2018-03-14] MEDS ORDERED: ceFAZolin 1,000 MG/10 ML (ANCEF) VIAL ONE (07:55)
[2018-03-14] MEDS ORDERED: NS (IVPB) 50 ML ONE (07:55)
[2018-03-14] MEDS ORDERED: HYDROcodone/APAP 7.5 MG/325 MG (LORTAB, LORCET PLUS) TABLET PO PRN (08:00)
[2018-03-14] MEDS ORDERED: LIDOCAINE PF 2% 2 ML (XYLOCAINE) VIAL ONE (08:11)
[2018-03-14] MEDS ORDERED: ONDANSETRON 4 MG/2 ML (SDV) Z0FRAN ONE (08:11)
[2018-03-14] MEDS ORDERED: fentaNYL INJECTION 100 MCG/2 ML AMP ONE (08:11)
[2018-03-14] MEDS ORDERED: MIDAZOLAM 2 MG/2 ML (VERSED) VIAL ONE (08:11)
[2018-03-14] MEDS ORDERED: SEVOFLURANE (ULTANE) 15 ML INHAL SOLN ONE (08:11)
[2018-03-14] MEDS ORDERED: proPOfol 200 MG/20 ML (DIPRIVAN) VIAL IV ONE (08:11)
[2018-03-14] MEDS ORDERED: LACTATED RINGERS 1,000 ML IV PRN (08:24)
[2018-03-14] MEDS ORDERED: ceFAZolin INJECTION 1,000 MG in NS (IVPB) 50 ML IV ONE (08:30)
[2018-03-14] MEDS ORDERED: ONDANSETRON 4 MG/2 ML (SDV) Z0FRAN IVP PRN (09:15)
[2018-03-14] MEDS ORDERED: morphine INJ 10 MG/ML 1ML (SYR OR VIAL) IVP ONE (09:15)
[2018-03-14] MEDS ORDERED: MEPERIDINE (DEMEROL) INJ 50 MG/ML IVP ONE (09:15)
[2018-03-14 09:50] VITALS: BP 120/55
[2018-03-14] MEDS ORDERED: HYDR-3816 PO (10:07)
[2018-03-14 10:20] VITALS: BP 130/67
[2018-03-14 11:00] VITALS: BP 126/62
--- NOTE | 2018-03-14 11:09 | Physical Therapy Ortho Eval ---
PT Orthopedic Evaluation Type of Surgery Knee Scope (left) Prior Level of Function Current Living Status: Spouse Locomotion (Upon Admit): Straight Cane Subjective Entry Into Home: Level Entry Motor Control Motor Control: Motor Control WNL ROM ROM: WFL, except focal deficit (left knee flexion to 80 degrees) Strength Strength: WFL Transfer Transfers (B, C, W/C) (FIM): 5 (6 post treatment) Gait Gait Assistive Device: FWW Right Lower Extremity: Right Weight Bearing Status RLE: Weight Bearing/Tolerated Weight Bearing Status LLE: Weight Bearing/Tolerated Gait (FIM): 5 (6 post treatment with FWW; walking boot on right LEdue to old injury) Distance (FIM): 3=150 ft Summary/Comments safe and steady gait. Treatment Rendered Treatment: Therapeutic Exercises, Gait Train Exercise Instruction: Quad Sets, Straight Leg Raise, Heel Slides 10each; educated to perform twice a day; increase to 15 then to 20 as able. Assessment/Goals Goal Time Frame: 1 Visit Understands HEP: Yes Safe Ambulation: Yes Plan Treatment Plan: Discharge Treatment Duration: 1 visit PT/Family Agrees to Plan: Yes Time Time In: 1030 Time Out: 1050 Total Billed Treatment Time: 20 Billed Treatment Time visit EVM 20 No ROBERT RODRÍGUEZ PT Mar 14, 2018 11:09
[2018-03-14 11:13] VITALS: BP 126/62
--- NOTE | 2018-03-14 13:36 | OPERATIVE REPORT ---
DATE OF SERVICE: 03/14/2018 PREOPERATIVE DIAGNOSES: 1. Left knee lateral meniscal tear. 2. Left knee chondromalacia, lateral femoral condyle. 3. Left knee chondromalacia of the lateral tibial plateau. POSTOPERATIVE DIAGNOSES: 1. Left knee lateral meniscal tear. 2. Left knee chondromalacia, lateral femoral condyle. 3. Left knee chondromalacia of the lateral tibial plateau. 4. Left knee chondromalacia of the patella. PROCEDURES: 1. Left knee arthroscopic partial lateral meniscectomy. 2. Left knee arthroscopic chondroplasty of the lateral femoral condyle. 3. Left knee arthroscopic chondroplasty of the lateral tibial plateau. 4. Left knee arthroscopic chondroplasty of the patella. SURGEON: Ananth Day MD GAS LINE REPAIRER: HÉCTOR Rey, who assisted throughout the procedure and closed the incisions. ANESTHESIA: General endotracheal by Gerry Ferrera CRNA. TOURNIQUET TIME: Not applicable. ESTIMATED BLOOD LOSS: Minimal. DRAINS: None. COMPLICATIONS: None. POSTOPERATIVE PLAN: Routine arthroscopy protocol. The patient was transported to the recovery room awake and in stable condition. STATEMENT OF MEDICAL NECESSITY: The patient is a 62-year-old female with complaints of left lateral knee pain, catching, locking and swelling. She had undergone an MRI, which revealed a complex tear of the lateral meniscus as well as chondral changes in her lateral compartment. She had tried rest, activity modifications and anti-inflammatories without relief; and due to functional impairment and failure to improve with conservative measures, the patient elected to proceed with surgical intervention. Examination under anesthesia revealed range of motion of 0/0/135 with a negative Jeana, negative anterior and posterior drawer. No varus or valgus laxity. Negative pivot shift. Arthroscopic findings, the patella demonstrated grade II chondral flap centrally in an 8 x 5 area. The trochlea demonstrated no gross chondral abnormalities. The medial and lateral gutters were clear. The medial compartment demonstrated no meniscal or chondral pathology. The ACL and PCL were intact. The lateral compartment demonstrated a complex tear of the body and anterior horn of the meniscus involving approximately one-half of the body and one-third of the anterior horn. In addition, there were grade II chondral flaps of the central portion of the tibial plateau in an 8 x 8 area and over the central portion of the femoral condyle in a 20 x 10 area. DESCRIPTION OF PROCEDURE: After risks and benefits of procedure were discussed and questions were answered, an informed consent was signed and placed on the chart. The operative site was confirmed in the preoperative holding area and initialed by the surgeon. The patient was then transferred to the operating room. After adequate levels of general endotracheal anesthetic were obtained, a timeout was called confirming the operative site. An examination under anesthesia was performed, the above findings noted. Left lower extremity was prepped and draped in the usual sterile fashion. The knee joint was injected with 60 mL of fluid and standard inferior lateral portals were placed with the arthroscope. Under direct visualization, inferior medial portal was created. The menisci and cruciates were carefully probed with the above findings noted. The unstable chondral flaps on the patella were debrided with shaver back to a stable edge. The scope was redirected into the lateral compartment where the unstable chondral flaps in lateral femoral condyle and lateral tibial plateau were debrided with a shaver back to a stable edge. The lateral meniscus tear was debrided with a biter and shaver back to a stable edge. This was carefully probed with no further tearing or instability noted. The knee was copiously irrigated and portal sites were closed with 4-0 nylon in simple interrupted fashion. The knee was injected with Duramorph. The port sites were infiltrated with plain Marcaine. A soft dressing was applied and the patient was transferred to the recovery room awake and in stable condition. Job ID: [id number] DocumentID: [id number] Dictated Date: 03/14/2018 08:59:58 Chief Creative Officer Date: 03/14/2018 13:35:26 Dictated By: ANANTH DAY MD
--- NOTE | 2018-03-14 14:23 | Anesthesia-General Post-Op ---
General Patient Condition Mental Status/LOC: Same as Preop Cardiovascular: Satisfactory Nausea/Vomiting: Absent Respiratory: Satisfactory Pain: Controlled Complications: Absent Post Op Complications Complications None Follow Up Care/Instructions Patient Instructions None needed. Anesthesia/Patient Condition Patient Condition Patient is doing well, no complaints, stable vital signs, no apparent adverse anesthesia problems. No complications reported per nursing. BELL CARRERO CRNA Mar 14, 2018 14:23
== END 2018-03-14 11:13 | disposition home or self-care (01) ==
LOC: SDC 07:43
PROVIDERS: ATTEND Orthopaedic Surgery
DX: M23.8X2 Other internal derangements of left knee (principal); M22.42 Chondromalacia patellae, left knee; Z11.2 Encounter for screening for other bacterial diseases; E11.40 Type 2 diabetes mellitus with diabetic neuropathy, unspecified; E78.5 Hyperlipidemia, unspecified; I10 Essential (primary) hypertension; Z87.891 Personal history of nicotine dependence; Z86.73 Personal history of transient ischemic attack (TIA), and cerebral infarction without residual deficits; K21.9 Gastro-esophageal reflux disease without esophagitis; Z79.82 Long term (current) use of aspirin; Z79.899 Other long term (current) drug therapy; Z79.4 Long term (current) use of insulin
CPT/HCPCS: 82962; 87081

== ENCOUNTER → 2018-09-12 | Outpatient (CLI) | payer OTHER ==
[~2018-09-12] MED LIST changes: +HYDR-3816 PO
--- NOTE | 2018-09-12 15:42 | Diagnostic Imaging Report ---
PROCEDURE: CT head without contrast. TECHNIQUE: Multiple contiguous axial images were obtained through the brain without the use of intravenous contrast. INDICATION: Fall with left-sided head injury. Patient complains of left-sided headache and dizziness. COMPARISON: No prior studies are available for comparison. FINDINGS: The ventricles and sulci are within normal limits. No sulcal effacement or midline shift is seen. No acute intra-axial or extra-axial hemorrhage is detected. The cisterns are patent. The visualized paranasal sinuses are clear. IMPRESSION: No acute intracranial process is detected. Dictated by: Dictated on workstation # [id number]
== END ==
LOC: RAD 14:37
PROVIDERS: ATTEND Nurse Practitioner Family
DX: S09.90XA Unspecified injury of head, initial encounter (principal); E11.618 Type 2 diabetes mellitus with other diabetic arthropathy; W19.XXXA Unspecified fall, initial encounter
CPT/HCPCS: 70450

== ENCOUNTER → 2018-11-06 | Outpatient (CLI) | payer OTHER ==
--- NOTE | 2018-11-06 14:08 | Diagnostic Imaging Report ---
INDICATION: Routine screening. COMPARISON: 01/15/2014. TECHNIQUE: 2D and 3D bilateral screening mammography was performed with CAD. FINDINGS: Scattered fibroglandular densities are identified bilaterally. No mass or malignant appearing microcalcifications are seen. The axillae are unremarkable. IMPRESSION: No mammographic features suspicious for malignancy are identified. ACR BI-RADS Category 1: Negative. Result letter will be mailed to the patient. Note: At least 10% of breast cancer is not imaged by mammography. Dictated by: Dictated on workstation # [id number]
== END ==
LOC: RAD 11:21
PROVIDERS: ATTEND Nurse Practitioner Family
DX: Z12.31 Encounter for screening mammogram for malignant neoplasm of breast (principal)
CPT/HCPCS: 77067

== ENCOUNTER → 2019-12-18 | Outpatient (CLI) | payer MEDICARE, OTHER ==
[~2019-12-18] MED LIST changes: +HYDR-34 PO; -HYDR-3816 PO
--- NOTE | 2019-12-18 10:53 | Diagnostic Imaging Report ---
PROCEDURE: US Bilateral lower extremity arterial. TECHNIQUE: Multiple real-time grayscale images are obtained through both lower extremity arterial systems with color Doppler imaging and color Doppler spectral analysis. INDICATION: Bilateral claudication COMPARISON: None available. FINDINGS: Right lower extremity: Scattered calcified plaquing seen throughout the right lower extremity. Color Doppler imaging shows patency of the common femoral, proximal deep femoral, superficial femoral, popliteal, posterior tibial, dorsalis pedis and anterior tibial arteries. Biphasic waveforms are seen throughout the right lower extremity. No elevated peak systolic velocities would indicate hematemesis significant stenosis. Left lower extremity: Scattered atherosclerotic plaques are present. Color Doppler imaging shows patency of the common femoral, proximal deep femoral, entire superficial femoral, popliteal, posterior tibial, dorsalis pedis and anterior tibial arteries. Biphasic waveforms are seen throughout the left lower extremity. No elevated peak systolic velocities would indicate hemodynamically significant stenosis. ARSEN: Not evaluated on this exam. IMPRESSION: 1. No arterial occlusion or hemodynamically significant stenosis in the bilateral lower extremity arteries. Dictated by: Dictated on workstation # [id number]
== END ==
LOC: RAD 08:46
PROVIDERS: ATTEND Internal Medicine
DX: I73.9 Peripheral vascular disease, unspecified (principal)
CPT/HCPCS: 93925

== ENCOUNTER → 2020-12-02 | Outpatient (CLI) | payer MEDICARE, OTHER ==
[~2020-12-02] MED LIST changes: -ENAL2.5T PO; +ENLP2.5T PO; -PANT40TA3 PO; +PANT40TA52 PO
--- NOTE | 2020-12-02 12:16 | Diagnostic Imaging Report ---
Indication: Lump right neck. Sonographic interrogation of the area of palpable lump right neck was performed. There is a hypoechoic circumscribed ovoid nodule measuring 1.6 x 1.1 x 0.5 cm. This does contain echogenic hilum and is most consistent with a lymph node. No other masses are seen. IMPRESSION: Lymph node, corresponding to the area palpable abnormality right neck. Dictated by: Dictated on workstation # [id number]
== END ==
LOC: RAD 10:45
PROVIDERS: ATTEND Surgery
DX: R59.0 Localized enlarged lymph nodes (principal)
CPT/HCPCS: 76536

== ENCOUNTER 2020-12-17 06:40 | Outpatient (CLI) | payer MEDICARE, OTHER ==
[~2020-12-17] VITALS: Ht 162.6 cm; Wt 81.8 kg
[2020-12-21] MEDS ORDERED: LIRA0.6P3 SQ (10:15)
== END 2020-12-21 10:29 | disposition home or self-care (01) ==
LOC: PREOP 06:40
PROVIDERS: ATTEND Surgery
DX: Z01.818 Encounter for other preprocedural examination (principal)

== ENCOUNTER 2020-12-24 11:04 | Day surgery (SDC) | payer MEDICARE, OTHER ==
--- NOTE | 2020-12-23 15:55 | HISTORY AND PHYSICAL ---
DATE OF SERVICE: ATTENDING PHYSICIAN: Venus Butler. DATE OF ADMISSION: 12/24/2020 HISTORY OF PRESENT ILLNESS: The patient is a 65-year-old female, who is known to us. We had initially seen her in 12/2009 for reflux and regurgitation. She has had a history of a laparoscopic cholecystectomy as well as hiatal hernia repair and Hill gastropexy in 2007. She did have a followup endoscopy in 2009 for H. pylori, which was identified and she was treated. She was then seen in 2016 for reflux, where she was found to have reflux esophagitis between class B and C, distal esophageal plaque, which may indicate esophageal candidiasis. There is a small hiatal hernia approximately 2 cm in size as well as a mild gastritis. Biopsies at that time were positive for H. pylori, but negative for Anderson's esophagus. She presented to our office approximately a month ago with complaints of enlarged lymph node of the right posterior neck that had been present for the past year without any changes. She did report that this was painful. She denied any infections or any bites or any sorts of trauma to that region. She did undergo an ultrasound of the neck, which did show hypoechoic circumscribed ovoid nodule measuring 1.6 x 1.1 x 0.5 cm in size that was consistent with a lymph node with no other masses seen. Due to the persistent nature of the lymph node, it was decided to proceed with right posterior cervical lymph node biopsy. PAST MEDICAL HISTORY: Type 2 diabetes, hypertension, hyperlipidemia, gastroesophageal reflux disease with history of H. pylori, neuropathy, stroke, and DVT. SURGICAL HISTORY: Tracheostomy as an for pneumonia, laparoscopic cholecystectomy, laparoscopic hiatal hernia repair and Hill gastropexy in 2007, and tubal ligation in 1983. ALLERGIES: No known drug allergies. MEDICATIONS: Protonix 40 mg daily, vitamin D 50,000 units weekly, and Topamax 25 mg daily. SOCIAL HISTORY: Previous for smoke for 20 pack years and negative for alcohol. FAMILY HISTORY: Mother, father, brother, diabetes. Mother with cervical cancer. Father with myocardial infarction. REVIEW OF SYSTEMS: A well-nourished female, in no acute distress. She is not experiencing any shortness of breath or difficulty breathing. No chest pain, palpitations or diaphoresis. No nausea, vomiting or abdominal pain. No diarrhea or constipation. No red blood per rectum. No dark tarry stools. No fever or chills. No recent inadvertent weight loss. All other review of systems negative. PHYSICAL EXAMINATION: VITAL SIGNS: Stable. Current weight 184 pounds at 5 feet 4 inches. CHEST: Clear. Good breath sounds bilaterally. HEART: Regular, no murmurs. EXTREMITIES: No lower extremity edema. Negative Homans sign. HEENT: Upon palpation, there is a palpable right posterior cervical lymph node that is slightly tender to palpation. There were no other enlarged lymph nodes identified. ABDOMEN: Soft, nontender, and nondistended. EXTREMITIES: No lower extremity edema. Negative Homans sign. SKIN: Warm, dry and pink. NEUROLOGIC: Awake, alert and oriented x3. ASSESSMENT AND PLAN: A 65-year-old female with right posterior cervical lymphadenopathy. At this time, due to the persistent nature, we will proceed with a right posterior cervical lymph node biopsy. Job ID: [id number] DocumentID: [id number] Dictated Date: 12/23/2020 15:35:32 Coordinate Measuring Machine Technician Date: 12/23/2020 15:54:58 Dictated By: BARAK BORDEN
[~2020-12-24] VITALS: Ht 162.6 cm; Wt 81.8 kg
[2020-12-24] VITALS (10 sets, daily range): BP systolic 97–136; BP diastolic 41–72
[~2020-12-24 11:04] MED LIST changes: +LIRA0.6P3 SQ
[2020-12-24] MEDS ORDERED: LACTATED RINGERS 1,000 ML IV PRN (11:15)
[2020-12-24] MEDS ORDERED: ceFAZolin 2 GM IV Premixed 50 ML IV ONE (11:15)
[2020-12-24] MEDS ORDERED: LIDOCAINE PF 2% 5 ML (XYLOCAINE) VIAL ONE (11:39)
[2020-12-24] MEDS ORDERED: fentaNYL INJ 100 MCG/2 ML AMP ONE (11:39)
[2020-12-24] MEDS ORDERED: proPOfol 200 MG/20 ML (DIPRIVAN) VIAL IV ONE (11:39)
[2020-12-24] MEDS ORDERED: ONDANSETRON 4 MG/2 ML (SDV) Z0FRAN ONE (11:39)
[2020-12-24] MEDS ORDERED: MIDAZOLAM 2 MG/2 ML (VERSED) VIAL ONE (11:39)
--- NOTE | 2020-12-24 11:42 | Progress Note-Pre Operative ---
Pre-Operative Progress Note H&P Reviewed The H&P was reviewed, patient examined and no changes noted. Date Seen by Provider: Dec 24, 2020 Time Seen by Provider: : Date H&P Reviewed: Dec 24, 2020 Time H&P Reviewed: :30 Pre-Operative Diagnosis: right peristent cervical lymphadenopathy VIBHA WALLACE MD Dec 24, 2020 11:42
[2020-12-24] MEDS ORDERED: HYDR-3817 PO (11:43)
--- NOTE | 2020-12-24 11:43 | Discharge Inst-Surgical ---
D/C Lap Instructions-MADISON New, Converted, or Re-Newed RX: RX on Chart Follow Up Appt in 2 weeks Activity as tolerated Regular Diet Symptoms to Report: Fever over 101 degree F, Nausea/Vomiting Infection Signs and Symptoms to report: Increased redness, Foul odor of wound, Increased drainage Bathing instructions: May shower Operative Area Clean/Dry; Keep incision clean/dry If any problems/questions: Contact your physician or go to Emergency Room VIBHA WALLACE MD Dec 24, 2020 11:43
[2020-12-24] MEDS ORDERED: morphine INJ 10 MG/ML 1ML (SYR OR VIAL) IVP PRN ×2 (11:45)
[2020-12-24] MEDS ORDERED: HYDROcodone/APAP 5 MG/325 MG (LORTAB) TAB PO ONE (11:45)
[2020-12-24] MEDS ORDERED: ACETAMINOPHEN 325 MG TABLET PO PRN (11:45)
[2020-12-24] MEDS ORDERED: ONDANSETRON 4 MG/2 ML (SDV) Z0FRAN IVP PRN ×2 (11:45→14:15)
[2020-12-24] MEDS ORDERED: LIDOCAINE/EPI 1%-1:200,000 (XYLOCAINE) 30 ML VIAL ONE (11:54)
[2020-12-24] MEDS ORDERED: SEVOFLURANE (ULTANE) 15 ML INHAL SOLN ONE (13:26)
--- NOTE | 2020-12-24 14:07 | Anesthesia-General Post-Op ---
General Patient Condition Mental Status/LOC: Same as Preop Cardiovascular: Satisfactory Nausea/Vomiting: Absent Respiratory: Satisfactory Pain: Controlled Complications: Absent Post Op Complications Complications None Follow Up Care/Instructions Patient Instructions None needed. Anesthesia/Patient Condition Patient Condition Patient is doing well, no complaints, stable vital signs, no apparent adverse anesthesia problems. No complications reported per nursing. JACINTO HEATH CRNA Dec 24, 2020 14:07
[2020-12-24] MEDS ORDERED: morphine INJ 10 MG/ML 1ML (SYR OR VIAL) IVP ONE (14:15)
[2020-12-24] MEDS ORDERED: MEPERIDINE (DEMEROL) INJ 50 MG/ML IVP ONE (14:15)
[2020-12-24] MEDS ORDERED: fentaNYL INJ 100 MCG/2 ML AMP IVP ONE (14:15)
--- NOTE | 2020-12-24 18:19 | OPERATIVE REPORT ---
DATE OF SERVICE: 12/24/2020 ATTENDING PENOLOGY PROFESSOR: HÉCTOR Spring PREOPERATIVE DIAGNOSIS: Persistent right superior cervical lymphadenopathy. POSTOPERATIVE DIAGNOSIS: Persistent right superior cervical lymphadenopathy. PROCEDURE: Excisional biopsy, deep right cervical lymph node. SURGEON: Vicki Wallace MD. INTERN BRAND: Rob Falcon APRN. ANESTHESIA: General laryngeal mask airway with local. ESTIMATED BLOOD LOSS: Minimal. FINDINGS: Enlarged superior level 2 deep cervical lymph node. DISPOSITION: The patient tolerated the procedure well. INDICATIONS: The patient is a 65-year-old female known to us. We have seen her before in the past for gastroesophageal reflux disease and peptic ulcer disease. She was referred over to us for enlarged lymph node in the deep cervical lymph node chain at a level 2, which she reports has been enlarged for the past year. She reports at times this is painful. She underwent an ultrasound, which did show an enlarged lymph node at 1.6 x 1.1 cm in size. She does have a past history of smoking and quit in 2017. She does not report any new respiratory or gastrointestinal symptoms as well as no recent inadvertent weight loss. DESCRIPTION OF PROCEDURE: The patient was brought to the operating room, laid supine on the table. After adequate IV pain and sedative medications and general laryngeal mask airway intubation, the neck was prepped and draped in standard surgical fashion. A 0.5% Marcaine with epinephrine was used to anesthetize the overlying skin along the neck as well as the glabellar lines, a skin incision was then made using a 15 blade. The subcutaneous tissue was then opened using electrocautery and this was followed by opening of the platysma. The fascia was then opened using Metzenbaum scissors and the deep cervical lymph node at level 2 was dissected out using blunt dissection as well as electrocautery with visualization of good hemostasis. The specimen was sent to pathology. The fascia was then reapproximated using 3-0 Vicryl interrupted sutures and the skin was closed using 4-0 Monocryl running subcuticular suture. Wound was then cleaned and covered with Dermabond. The patient tolerated the procedure well. We will await the pathology results and have her follow up in the office approximately one week. Job ID: [id number] DocumentID: [id number] Dictated Date: 12/24/2020 13:53:35 Welcome Wagon Host/Hostess Date: 12/24/2020 18:18:30 Dictated By: VICKI WALLACE MD
== END 2020-12-24 16:00 | disposition home or self-care (01) ==
LOC: SDC 11:04
PROVIDERS: ATTEND Surgery
DX: R59.0 Localized enlarged lymph nodes (principal); I10 Essential (primary) hypertension; K21.9 Gastro-esophageal reflux disease without esophagitis; E11.51 Type 2 diabetes mellitus with diabetic peripheral angiopathy without gangrene; E78.5 Hyperlipidemia, unspecified; Z79.899 Other long term (current) drug therapy; Z86.73 Personal history of transient ischemic attack (TIA), and cerebral infarction without residual deficits
CPT/HCPCS: 87081; 88305

== ENCOUNTER → 2021-04-16 | Outpatient (CLI) | payer MEDICARE, OTHER ==
[~2021-04-16] MED LIST changes: +HYDR-3817 PO
--- NOTE | 2021-04-16 15:35 | Diagnostic Imaging Report ---
INDICATION: Pain in the medial left breast. CORRELATION is made with diagnostic mammogram earlier the same day. FINDINGS: Sonographic interrogation of the areas of pain in the medial left breast were performed. No sonographic abnormality is seen. No solid or cystic mass is detected. IMPRESSION: BI-RADS Category 1. No sonographic abnormality is detected. ACR BI-RADS Category 1: Negative. Result letter will be mailed to the patient. Note: At least 10% of breast cancer is not imaged by mammography. ] Dictated by: Dictated on workstation # [id number]
--- NOTE | 2021-04-16 15:39 | Diagnostic Imaging Report ---
INDICATION: Left breast pain. CORRELATION is made with prior mammograms from 11/06/2018 and 01/15/2014. 2-D and 3-D bilateral diagnostic mammography was performed with CAD. Scattered fibroglandular densities are noted bilaterally. No mass or malignant-appearing microcalcifications are seen. Axillae are unremarkable. There are occasional benign parenchymal and vascular calcifications. IMPRESSION: BI-RADS 0 No mammographic features suspicious for malignancy are identified. Even so, directed sonographic interrogation of the area of pain in the left breast is recommended and will be performed today. ACR BI-RADS Category 0: Incomplete. (Needs additional imaging evaluation). Result letter will be mailed to the patient. Note: At least 10% of breast cancer is not imaged by mammography. Dictated by: Dictated on workstation # [id number]
== END ==
LOC: RAD 13:51
PROVIDERS: ATTEND Nurse Practitioner Family
DX: N64.4 Mastodynia (principal)
CPT/HCPCS: 76642; 77066; G0279; 77062

== ENCOUNTER 2021-06-07 15:54 | Inpatient (IN) | payer MEDICARE, OTHER ==
[~2021-06-07] VITALS: Ht 162 cm; Wt 100.0 kg
--- NOTE | 2021-06-07 16:37 | ED Lower Extremity ---
General Chief Complaint: Skin/Wound Problems Stated Complaint: R FOOT INFECTION Nursing Triage Note: PT HERE FOR CONCERNS ABOUT R FOOT/TOE WOUND AND R FOOT SWELLING. PT REPORTS SHE FIRST NOTICED PAIN AND SWELLING ON MONDAY. PT ALSO REPORTS SHE STEPPED ON NAILS WITH SAME FOOT BUT REPORTS PAIN STARTED BEFORE. Source: patient Exam Limitations: no limitations (POWER JHAVERI) History of Present Illness Date Seen by Provider: Jun 07, 2021 Time Seen by Provider: 16:34 Initial Comments Patient is a 65-year-old female presents ED with right leg swelling, redness and pain. Patient is a diabetic. She states her blood sugar has been controlled. 4 to 5 days ago she stepped on a board of yolanda nails. She immediately felt the pain and remove the nails. Noted redness, swelling from the puncture site with redness and swelling migrating up her right leg. Was seen by Dr. Butler her primary care physician who sent the patient to the ED for further evaluation, admission and IV antibiotics. Patient is not up-to-date on her tetanus. She states she feels feverish, weak and fatigued. Denies cough, shortness of breath, chest pain, abdominal pain, headache, dizziness (POWER JHAVERI) Allergies and Home Medications Allergies Coded Allergies: No Known Drug Allergies (Unverified , 12/21/20) Patient Home Medication List Home Medication List Reviewed: Yes (POWER JHAVERI) Dipyridamole/Aspirin (Aggrenox 25 mg-200 mg Capsule) 1 Ea Cap, 1 CAP PO BID, (Reported) Entered as Reported by: LUZMARIA LOO on 06/30/17 1236 Enalapril Maleate (Enalapril Maleate) 2.5 Mg Tablet, 2.5 MG PO DAILY, (Reported) Entered as Reported by: MARK XIAO on 06/30/17 1419 Ergocalciferol (Vitamin D2) (Vitamin D2) 50,000 Unit Capsule, 50,000 UNITS PO Mo, (Reported) Entered as Reported by: MARK XIAO on 06/30/17 1419 Gabapentin (Gabapentin) 400 Mg Capsule, 400 MG PO DAILY, (Reported) Entered as Reported by: MARK XIAO on 06/30/17 1431 Hydrocodone/Acetaminophen (Hydrocodone-Acetamin 7.5-325) 1 Each Tablet, 1 EACH PO Q4H Prescribed by: VIBHA WALLACE on 12/24/20 1143 Insulin Degludec (Tresiba Flextouch U-100) 100 Unit/1 Ml Insuln.pen, 45 UNIT SQ DAILY, (Reported) Entered as Reported by: TIANA WALTON on 02/15/18 1009 Liraglutide (Victoza 3-Rhett) 0.6 Mg/0.1 Ml Pen.injctr, 18 UNITS SQ DAILY, (Reported) Entered as Reported by: CHRISTIAN VILLEGAS on 12/21/20 1015 Lovastatin (Lovastatin) 10 Mg Tablet, 10 MG PO DAILY, (Reported) Entered as Reported by: MARK XIAO on 06/30/17 1515 Pantoprazole Sodium (Pantoprazole Sodium) 40 Mg Tablet.dr, 40 MG PO DAILY, (Reported) Entered as Reported by: TIANA WALTON on 02/15/18 1009 Review of Systems Constitutional: chills, fever, malaise EENTM: No ear pain, No eye pain, No throat pain Respiratory: No cough, No short of breath, No wheezing Gastrointestinal: No abdominal pain, No diarrhea, No nausea, No vomiting Genitourinary: No decreased output, No dysuria, No frequency Musculoskeletal: No back pain, No gout, No joint pain Skin: change in color (Red, swelling) (POWER JHAVERI) Past Bcseuyp-Nrrgpm-Fjzinj Hx Patient Social History Tobacco Use?: No Smoking Status: Former Smoker Substance use?: No Alcohol Use?: No Pt feels they are or have been: No (POWER JHAVERI) Immunizations Up To Date Tetanus Booster (TDap): Less than 5yrs First/Initial COVID19 Vaccinat: 04/10/21 Second COVID19 Vaccination Kevin: 05/08/21 COVID19 Vaccine Mercury Washer: JOSEFA (POWER JHAVERI) Seasonal Allergies Seasonal Allergies: Yes (POWER JHAVERI) Past Medical History Surgery/Hospitalization HX: PMH: DM-INSULIN DEP, NEUROPATHY, HTN SX: GALLBLADDER, TUBAL, Surgeries: Yes (rt leg stents, ABSCESS ON BUTTOCKS X3 (JUN 2017)) Gallbladder, Tracheostomy, Tubal Ligation Respiratory: No Cardiac: Yes (STENT IN LEG X2) Hypertension, Peripheral Vascular Neurological: Yes (STROKE 20 YEARS APPROX.) TIA 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 Disorders: No COMMUNITY RELATIONS OFFICER History: Tubal Ligation Sexually Transmitted Disease: No HIV/AIDS: No Genitourinary: No Gastrointestinal: Yes Gastroesophageal Reflux, Chronic Constipation Musculoskeletal: Yes (02/19/18 RIGHT ANKLE BIMALLEOLAR FX, RIGHT FOOT FX) Endocrine: Yes Diabetes, Insulin dep HEENT: Yes (RIGHT EYE PARITAL BLINDNESS) Loss of Vision: Bilateral Cancer: No Psychosocial: No Integumentary: No Blood Disorders: No Adverse Reaction/Blood Tranf: No (N/A) (POWER JHAVERI) Family Medical History Patient reports no known family medical history. No Pertinent Family Hx, Heart Disease, Cancer, Diabetes, Hypertension, Vascular Disease (POWER JHAVERI) Physical Exam Vital Signs Vital Signs - First Documented 06/07/21 16:07 Temp 36.9 Pulse 74 Resp 18 B/P (MAP) 119/65 (83) Pulse Ox 98 (MARIYA CHAVEZ MD) Vital Signs Capillary Refill : Less Than 3 Seconds (POWER JHAVERI) Height, Weight, BMI Height: 5'4.00" Weight: 205lbs. 9.0oz. 93.694242tp; 30.00 BMI Method:Stated General Appearance: WD/WN, no apparent distress HEENT: PERRL/EOMI, normal ENT inspection, TMs normal, pharynx normal Neck: non-tender, full range of motion, supple Cardiovascular: regular rate, rhythm, no edema, no gallop, no JVD Respiratory: chest non-tender, lungs clear, normal breath sounds, no respiratory distress Gastrointestinal: normal bowel sounds, non tender, soft, no organomegaly Back: normal inspection, no CVA tenderness Feet: right foot pain, right foot soft tissue tenderness, right foot swelling Neurologic/Psychiatric: electrical system specialist II-XII nml as tested, no motor/sensory deficits Skin: other (Erythema and swelling noted to the right foot radiation up the right leg with tightness, erythema streaking. 2 puncture wounds noted to the right plantar foot. Mild purulent drainage noted to the plantar little toe. ) (POWER JHAVERI) Progress/Results/Core Measures Results/Orders Lab Results Laboratory Tests Test 06/07/21 17:04 Range/Units White Blood Count 10.2 4.3-11.0 10^3/uL Red Blood Count 3.99 3.80-5.11 10^6/uL Hemoglobin 12.0 11.5-16.0 g/dL Hematocrit 38 35-52 % Mean Corpuscular Volume 94 80-99 fL Mean Corpuscular Hemoglobin 30 25-34 pg Mean Corpuscular Hemoglobin Concent 32 32-36 g/dL Red Cell Distribution Width 13.4 10.0-14.5 % Platelet Count 264 130-400 10^3/uL Mean Platelet Volume 11.5 9.0-12.2 fL Immature Granulocyte % (Auto) 1 % Neutrophils (%) (Auto) 87 H 42-75 % Lymphocytes (%) (Auto) 6 L 12-44 % Monocytes (%) (Auto) 5 0-12 % Eosinophils (%) (Auto) 1 0-10 % Basophils (%) (Auto) 1 0-10 % Neutrophils # (Auto) 8.9 H 1.8-7.8 10^3/uL Lymphocytes # (Auto) 0.7 L 1.0-4.0 10^3/uL Monocytes # (Auto) 0.5 0.0-1.0 10^3/uL Eosinophils # (Auto) 0.1 0.0-0.3 10^3/uL Basophils # (Auto) 0.1 0.0-0.1 10^3/uL Immature Granulocyte # (Auto) 0.1 0.0-0.1 10^3/uL Neutrophils % (Manual) 87 % Lymphocytes % (Manual) 11 % Monocytes % (Manual) 2 % Blood Morphology Comment NORMAL Sodium Level 130 L 135-145 MMOL/L Potassium Level 4.4 3.6-5.0 MMOL/L Chloride Level 97 L 98-107 MMOL/L Carbon Dioxide Level 23 21-32 MMOL/L Anion Gap 10 5-14 MMOL/L Blood Urea Nitrogen 24 H 7-18 MG/DL Creatinine 2.07 H 0.60-1.30 MG/DL Estimat Glomerular Filtration Rate 24 BUN/Creatinine Ratio 12 Glucose Level 209 H 70-105 MG/DL Lactic Acid Level 0.83 0.50-2.00 MMOL/L Calcium Level 9.3 8.5-10.1 MG/DL Corrected Calcium 9.6 8.5-10.1 MG/DL Total Bilirubin 0.4 0.1-1.0 MG/DL Aspartate Amino Transf (AST/SGOT) 20 5-34 U/L Alanine Aminotransferase (ALT/SGPT) 14 0-55 U/L Alkaline Phosphatase 52 40-136 U/L C-Reactive Protein High Sensitivity 12.07 H 0.00-0.50 MG/DL Total Protein 7.7 6.4-8.2 GM/DL Albumin 3.6 3.2-4.5 GM/DL Procalcitonin 0.23 H <0.10 NG/ML (MARIYA CHAVEZ MD) Medications Given in ED Current Medications Medications Dose Ordered Sig/Nhan Route Start Time Stop Time Status Last Admin Dose Admin Diphtheria/ Tetanus/Acell Pertussis 0.5 ml ONCE ONCE IM 06/07/21 16:45 06/07/21 16:46 DC 06/07/21 18:07 0.5 ML Piperacillin Sod/ Tazobactam Sod 4.5 gm/Sodium Chloride 120 ml @ 240 mls/hr ONCE ONCE IV 06/07/21 16:45 06/07/21 17:14 DC 06/07/21 18:08 240 MLS/HR Vancomycin HCl 1000 mg/Sodium Chloride 250 ml @ 250 mls/hr ONCE ONCE IV 06/07/21 16:45 06/07/21 17:44 DC 06/07/21 18:08 250 MLS/HR (MARIYA CHAVEZ MD) Vital Signs/I&O 06/07/21 16:07 Temp 36.9 Pulse 74 Resp 18 B/P (MAP) 119/65 (83) Pulse Ox 98 (MARIYA CHAVEZ MD) Blood Pressure Mean: 83 Departure Communication (Admissions) Time/Spoke to Admitting Phy: 17:53 Patient with cellulitis of the lung right lower extremity. Purulent drainage with puncture wounds noted to right plantar foot. X-ray was negative for acute fracture or obvious bone destruction. Elevated CRP. Normal white blood count. Patient was started on vancomycin and Zosyn here in the ED. Dr. Butler patient's primary care physician recommended admission with IV antibiotics. Discussed these results with hospitalist Dr. Swartz who was willing to accept the patient. Did discuss with patient if she would rather follow-up outpatient and try a trial of oral antibiotic before admission. She states she does not feel safe to go home and concern for the worsening infection at this time. Reassured patient that her vital signs are stable. Does not appear septic or toxic. Patient will be admitted for observation under Dr. Swartz. Patient was given a tetanus shot (POWER JHAVERI) Impression Primary Impression: Cellulitis Disposition: ADMITTED INPATIENT Condition: Stable Admissions Decision to Admit Reason: Admit from ER (General) Decision to Admit/Date: Jun 07, 2021 Time/Decision to Admit Time: 17:53 (POWER JHAVERI) Departure-Patient Inst. Referrals: NATHAN BUTLER DO (PCP/Family) Primary Care Physician ATTENDING PHYSICIAN NOTE: I was physically present as attending physician in the emergency department during the care of this patient, but I was not directly involved in the decision making or delivery of care for this patient. (MARIYA CHAVEZ MD) POWER JHAVERI Jun 07, 2021 16:37 MARIYA CHAVEZ MD Jun 07, 2021 20:26
[2021-06-07] MEDS ORDERED: VANCOMYCIN INJECTION 1,000 MG in NS (IVPB) 250 ML IV ONE (16:45)
[2021-06-07] MEDS ORDERED: TETANUS,DIPTH,PERTUSS P/F (BOOSTRIX) 0.5 ML VIAL IM ONE (16:45)
[2021-06-07] MEDS ORDERED: PIPERACILLIN/TAZOBACTAM (BULK) 4.5 GM in NS (IVPB) 100 ML IV ONE (16:45)
[2021-06-07 17:11] LABS: BASOPHILS # (AUTO) 0.1 10^3/uL (0.0-0.1); BASOPHILS % (AUTO) 1 % (0-10); EOSINOPHILS # (AUTO) 0.1 10^3/uL (0.0-0.3); EOSINOPHILS % (AUTO) 1 % (0-10); HEMATOCRIT 38 % (35-52); LYMPHOCYTES # (AUTO) 0.7 10^3/uL (1.0-4.0); LYMPHOCYTES % (AUTO) 6 % (12-44); MEAN CORPUSCULAR HEMOGLOBIN 30 pg (25-34); MEAN CORPUSCULAR HGB CONC 32 g/dL (32-36); MEAN CORPUSCULAR VOLUME 94 fL (80-99); MEAN PLATELET VOLUME 11.5 fL (9.0-12.2); MONOCYTES # (AUTO) 0.5 10^3/uL (0.0-1.0); MONOCYTES % (AUTO) 5 % (0-12); NEUTROPHILS # (AUTO) 8.9 10^3/uL (1.8-7.8); NEUTROPHILS % (AUTO) 87 % (42-75); PLATELET COUNT 264 10^3/uL (130-400); WHITE BLOOD COUNT 10.2 10^3/uL (4.3-11.0)
--- NOTE | 2021-06-07 17:23 | Diagnostic Imaging Report ---
INDICATION: Right foot pain AP, oblique and lateral views of the right foot are obtained with comparison made to study of 02/19/2018. There has been mild increase in spurring about the distal 1st metacarpal. Resorption of the 5th distal phalanx is again noted. There is continued enthesopathy at the posterior calcaneus. Overall, there is diffuse foot swelling. IMPRESSION: Mild worsening of chronic degenerative findings with resorption of the 5th distal phalanx again noted. There is diffuse swelling which may be due to cellulitis however no bone destruction is appreciated. Dictated by: Dictated on workstation # [id number]
[2021-06-07 17:25] LABS: ALBUMIN 3.6 GM/DL (3.2-4.5); POTASSIUM 4.4 MMOL/L (3.6-5.0)
[2021-06-07 17:26] LABS: CALCIUM 9.3 MG/DL (8.5-10.1)
[2021-06-07 17:27] LABS: TOTAL PROTEIN 7.7 GM/DL (6.4-8.2)
[2021-06-07 17:29] LABS: BILIRUBIN,TOTAL 0.4 MG/DL (0.1-1.0)
[2021-06-07 17:31] LABS: CREATININE SERUM 2.07 MG/DL (0.60-1.30); LYMPHOCYTES % (MANUAL) 11 %; MONOCYTES % (MANUAL) 2 %; NEUTROPHILS % (MANUAL) 87 %; RBC MORPH NORMAL
[2021-06-07] MEDS ORDERED: MELATONIN 3 MG TABLET PO PRN (20:00)
[2021-06-07] MEDS ORDERED: ANTACID SUSP 30 ML UDC (MYLANTA) PO PRN (20:00)
[2021-06-07] MEDS ORDERED: diphenhydrAMINE 25 MG TAB (BENADRYL) PO PRN (20:00)
[2021-06-07] MEDS ORDERED: VANCOMYCIN INJECTION 0.1 MG in NS (IVPB) 250 ML IV SCH (20:00)
[2021-06-07] MEDS ORDERED: inSUlin ASPART (NovoLOG) 1 UNIT/0.01 ML (CHARGE PER UNIT) SC SCH (20:00)
[2021-06-07] MEDS ORDERED: polyethylene glycoL POWDER 17 GM (MIRALAX) PACK PO PRN (20:00)
[2021-06-07] MEDS ORDERED: ONDANSETRON 4 MG (ZOFRAN) ORAL DISSOLVE TAB PO PRN (20:00)
[2021-06-07] MEDS ORDERED: ONDANSETRON 4 MG/2 ML (SDV) Z0FRAN IV PRN (20:00)
[2021-06-07] MEDS ORDERED: LACTATED RINGERS 1,000 ML IV ONE (21:23)
[2021-06-07] MEDS: LACTATED RINGERS 1,000 ML IV SCH (21:30)
[2021-06-07] MEDS ORDERED: VANCOMYCIN 500 MG/NS 100 ML IV ONE ×2 (23:00)
[2021-06-07] MEDS: ACETAMINOPHEN 325 MG TABLET PO PRN (23:41)
[2021-06-07] MEDS: DOCUSATE SODIUM 100 MG (COLACE) CAP PO SCH (23:42)
[2021-06-07] MEDS: CATHETER FLUSH 10 ML SYR IV SCH (23:42)
[2021-06-07] MEDS: SENNOSIDES 8.6 MG (SENOKOT) TAB PO SCH (23:42)
[2021-06-08] MEDS ORDERED: NS (IVPB) 100 ML ONE (00:19)
[2021-06-08 00:27] VITALS: BP 148/73
[2021-06-08] MEDS: PIPERACILLIN/TAZOBACTAM (BULK) 4.5 GM in NS (IVPB) 100 ML IV SCH ×4 (01:53→22:11)
[2021-06-08 03:34] VITALS: BP 101/62
[2021-06-08] MEDS: CATHETER FLUSH 10 ML SYR IV SCH ×3 (06:18→22:11)
[2021-06-08 06:19] LABS: BASOPHILS # (AUTO) 0.1 10^3/uL (0.0-0.1); BASOPHILS % (AUTO) 1 % (0-10); EOSINOPHILS # (AUTO) 0.1 10^3/uL (0.0-0.3); EOSINOPHILS % (AUTO) 1 % (0-10); HEMATOCRIT 36 % (35-52); HEMOGLOBIN 11.4 g/dL (11.5-16.0); LYMPHOCYTES # (AUTO) 0.9 10^3/uL (1.0-4.0); LYMPHOCYTES % (AUTO) 12 % (12-44); MEAN CORPUSCULAR HEMOGLOBIN 31 pg (25-34); MEAN CORPUSCULAR HGB CONC 32 g/dL (32-36); MEAN CORPUSCULAR VOLUME 97 fL (80-99); MEAN PLATELET VOLUME 11.9 fL (9.0-12.2); MONOCYTES # (AUTO) 0.4 10^3/uL (0.0-1.0); MONOCYTES % (AUTO) 6 % (0-12); NEUTROPHILS # (AUTO) 6.2 10^3/uL (1.8-7.8); NEUTROPHILS % (AUTO) 81 % (42-75); PLATELET COUNT 198 10^3/uL (130-400); WHITE BLOOD COUNT 7.7 10^3/uL (4.3-11.0)
[2021-06-08 06:28] LABS: POTASSIUM 3.9 MMOL/L (3.6-5.0)
[2021-06-08 06:29] LABS: CALCIUM 8.2 MG/DL (8.5-10.1)
[2021-06-08 06:34] LABS: CREATININE SERUM 2.06 MG/DL (0.60-1.30)
[2021-06-08] MEDS ORDERED: FLU QUAD HIGH DOSE 240 MCG/0.7 ML 2021-22 (FLUZONE) IM ONE (07:15)
[2021-06-08 08:12] VITALS: BP 98/46
[2021-06-08] MEDS: SENNOSIDES 8.6 MG (SENOKOT) TAB PO SCH ×2 (09:13→21:22)
[2021-06-08] MEDS: DOCUSATE SODIUM 100 MG (COLACE) CAP PO SCH ×2 (09:13→21:22)
[2021-06-08] MEDS: LACTATED RINGERS 1,000 ML IV SCH ×2 (09:13→18:16)
[2021-06-08] MEDS: inSUlin ASPART (NovoLOG) 1 UNIT/0.01 ML (CHARGE PER UNIT) SC SCH ×4 (09:30→20:20)
[2021-06-08] MEDS: ENOXAPARIN 40 MG/0.4 ML (LOVENOX) SYR SC SCH (09:30)
[2021-06-08 11:26] VITALS: BP 103/52
[2021-06-08] MEDS ORDERED: ERGO1250 PO (11:55)
[2021-06-08] MEDS ORDERED: AGGRENOX PO (11:55)
[2021-06-08] MEDS ORDERED: ACET-2267 PO (11:55)
[2021-06-08] MEDS ORDERED: SULF1TAB38 PO (12:00)
--- NOTE | 2021-06-08 13:37 | Progress Note - Surgery ---
Subjective Date Seen by a Provider: Jun 08, 2021 Time Seen by a Provider: 13:00 Subjective/Events-last exam This is Chantale a 65 yo female with the chief complaint of cellulitis of her right foot. Pt states that Last Monday she noticed swelling in her right foot. On Monday she went outside and stepped on a board with nails coming out of the bottom. Two of the nails punctured her foot and she states that she pulled the board and nails out of her foot before going back inside. Neither her of her have a drivers license so she was unable to be seen in a timely manner. Pt states that she then soaked the foot in antibacterial soap and hot water. Over the the next 5 days she states that she spent a majority of her time sleeping. She describes being very fatigued and nauseous. She states that she lost her appetite and didn't eat anything over those 5 days and only drank water. The pain in her right foot continued to get worse and traveled up her leg to the right groin and so she went to see Dr. Devries who recommended karel to the ED yesterday. According to the nursing staff the cellulitis was much further up her calf yesterday and has reduced to covering the dorsal aspect of the right foot and ankle. Review of Systems General: Chills, Fatigue, Appetite (loss of appetite) HEENT: No Head Aches, No Visual Changes, No Ear Pain, No Sore Throat Pulmonary: No Dyspnea, No Cough Cardiovascular: Edema (swelling in right foot even before stepping on nails); No: Chest Pain, Palpitations Gastrointestinal: Nausea, Constipation (chronic); No: Vomiting, Abdominal Pain, Diarrhea Genitourinary: No Dysuria, No Frequency, No Incontinence, No Hematuria, No Retention Musculoskeletal: leg pain (left knee- chronic, right foot and leg pain to the thigh) Neurological: Weakness (right leg); No: Numbness, Confusion Focused Exam Lactate Level 06/07/21 17:04: Lactic Acid Level 0.83 Time of Focused Exam: 13:00 Respiratory: Chest Non Tender, Lungs Clear, Normal Breath Sounds, No Accessory Muscle Use, No Respiratory Distress Cardiovascular: Regular Rate, Rhythm, No Gallop, No Murmur, Normal Peripheral Pulses Skin: normal color, warm/dry, other (cellulitis of right dorsal foot and ankle, puncture wounds at base of 5 th digit and 5th metatarsal head) Objective Exam Vital Signs Date Time Temp Pulse Resp B/P (MAP) Pulse Ox O2 Delivery O2 Flow Rate FiO2 06/08/21 11:26 37.2 76 20 103/52 (69) 95 Room Air 06/08/21 08:12 37.2 73 20 98/46 (63) 95 Room Air 06/08/21 08:00 Room Air 06/08/21 03:34 36.0 68 18 101/62 (75) 95 Room Air 06/08/21 01:52 36.7 06/08/21 01:51 36.4 06/08/21 00:27 39.4 92 18 148/73 (98) 96 Room Air 06/07/21 23:41 39.0 06/07/21 21:00 96 Room Air 06/07/21 19:28 64 18 120/52 97 06/07/21 16:07 36.9 74 18 119/65 (83) 98 I & O 06/08/21 06:59 Intake Total 1830 ml Balance 1830 ml Capillary Refill : Less Than 3 Seconds General Appearance: Chronically ill, Mild Distress, Obese HEENT: PERRL/EOMI, Pharynx Normal, Other (poor dentition) Neck: Normal Inspection, Non Tender, Supple Respiratory: Chest Non Tender, Lungs Clear, Normal Breath Sounds, No Accessory Muscle Use, No Respiratory Distress Cardiovascular: Regular Rate, Rhythm, No Gallop, No Murmur, Normal Peripheral Pulses Gastrointestinal: non tender, soft, no organomegaly Extremity: Calf Tenderness (right sided), Pedal Edema (swelling of right LE), Other (pain and restrition with movement of right LE, cellulitis ) Neurologic/Psychiatric: Alert, Oriented x3, Normal Mood/Affect Skin: Normal Color, Warm/Dry, Other (cellulitis of right dorsal foot and ankle, puncture wounds at base of 5 th digit and 5th metatarsal head) Lymphatic: No Adenopathy (cervical or supraclavicular) Results Lab Laboratory Tests 06/07/21 17:04: White Blood Count 10.2, Red Blood Count 3.99, Hemoglobin 12.0, Hematocrit 38, Mean Corpuscular Volume 94, Mean Corpuscular Hemoglobin 30, Mean Corpuscular Hemoglobin Concent 32, Red Cell Distribution Width 13.4, Platelet Count 264, Mean Platelet Volume 11.5, Immature Granulocyte % (Auto) 1, Neutrophils (%) (Auto) 87H, Lymphocytes (%) (Auto) 6L, Monocytes (%) (Auto) 5, Eosinophils (%) (Auto) 1, Basophils (%) (Auto) 1, Neutrophils # (Auto) 8.9H, Lymphocytes # (Auto) 0.7L, Monocytes # (Auto) 0.5, Eosinophils # (Auto) 0.1, Basophils # (Auto) 0.1, Immature Granulocyte # (Auto) 0.1, Neutrophils % (Manual) 87, Lymphocytes % (Manual) 11, Monocytes % (Manual) 2, Blood Morphology Comment NORMAL, Sodium Level 130L, Potassium Level 4.4, Chloride Level 97L, Carbon Dioxide Level 23, Anion Gap 10, Blood Urea Nitrogen 24H, Creatinine 2.07H, Estimat Glomerular Filtration Rate 24, BUN/Creatinine Ratio 12, Glucose Level 209H, Lactic Acid Level 0.83, Calcium Level 9.3, Corrected Calcium 9.6, Total Bilirubin 0.4, Aspartate Amino Transf (AST/SGOT) 20, Alanine Aminotransferase (ALT/SGPT) 14, Alkaline Phosphatase 52, C-Reactive Protein High Sensitivity 12.07H, Total Protein 7.7, Albumin 3.6, Procalcitonin 0.23H 06/07/21 20:42: Glucometer 170H 06/08/21 05:21: Glucometer 124H 06/08/21 05:43: White Blood Count 7.7, Red Blood Count 3.72L, Hemoglobin 11.4L, Hematocrit 36, Mean Corpuscular Volume 97, Mean Corpuscular Hemoglobin 31, Mean Corpuscular Hemoglobin Concent 32, Red Cell Distribution Width 13.6, Platelet Count 198, Mean Platelet Volume 11.9, Immature Granulocyte % (Auto) 0, Neutrophils (%) (Auto) 81H, Lymphocytes (%) (Auto) 12, Monocytes (%) (Auto) 6, Eosinophils (%) (Auto) 1, Basophils (%) (Auto) 1, Neutrophils # (Auto) 6.2, Lymphocytes # (Auto) 0.9L, Monocytes # (Auto) 0.4, Eosinophils # (Auto) 0.1, Basophils # (Auto) 0.1, Immature Granulocyte # (Auto) 0.0, Sodium Level 127L, Potassium Level 3.9, Chloride Level 100, Carbon Dioxide Level 15L, Anion Gap 12, Blood Urea Nitrogen 24H, Creatinine 2.06H, Estimat Glomerular Filtration Rate 24, BUN/Creatinine Ratio 12, Glucose Level 123H, Calcium Level 8.2L 06/08/21 10:27: Glucometer 70 06/08/21 12:15: Vancomycin Level Trough 17.1 Microbiology 06/07/21 Gram Stain, Resulted Pending 06/07/21 Wound Culture - Preliminary, Resulted Probable Staph Aureus Assessment/Plan Assessment/Plan Assessment/Plan Assessment: cellulitis of right dorsal foot and ankle puncture wounds at base of 5 th digit and 5th metatarsal head right foot x-ray on 06/07- no bone destruction, diffuse swelling Plan: continue IV antibiotics continue Tylenol for pain management NILES CHO [employer] STUDENT Jun 08, 2021 13:36
--- NOTE | 2021-06-08 13:51 | Consultation - Surgery ---
NILES CHO MED STUDENT 06/08/21 1351: History of Present Illness History of Present Illness Patient Consulted On(cary/time) 06/08/21 13:46 Date Seen by Provider: Jun 08, 2021 Time Seen by Provider: 13:00 Reason for Visit: right foot celluitis History of Present Illness This is Chantale a 65 yo female with the chief complaint of cellulitis of her right foot. Pt states that last Monday she noticed swelling in her right foot. On Monday she went outside and stepped on a board with nails coming out of the bottom. Two of the nails punctured her right foot and she states that she pulled the board and nails out of her foot before going back inside. Neither her of her have a drivers license so she was unable to be seen in a timely manner. Pt states that she then soaked the foot in antibacterial soap and hot water. Over the the next 5 days she states that she spent a majority of her time sleeping. She describes being very fatigued and nauseous. She states that she lost her appetite and didn't eat anything over those 5 days and only drank water. The pain in her right foot continued to get worse and traveled up her leg to the right groin and so she went to see Dr. Butler who recommended going to the ED yesterday. According to the nursing staff the cellulitis was much further up her calf yesterday and has reduced to involving the dorsal aspect of the right foot and ankle. Pt puts the pain at a 10/10 with movement of the ankle or palpation. Allergies and Home Medications Allergies Coded Allergies: No Known Drug Allergies (Unverified , 12/21/20) Patient Home Medication List Acetaminophen (Tylenol Extra Strength) 500 Mg Tablet, 500 MG PO Q6H PRN for PAIN-MILD (1-4), (Reported) Entered as Reported by: JULIANA GARNICA on 06/08/21 1155 Last Action: Reviewed Enalapril Maleate (Enalapril Maleate) 2.5 Mg Tablet, 2.5 MG PO DAILY, (Reported) Entered as Reported by: MARK XIAO on 06/30/17 1419 Last Action: Reviewed Ergocalciferol (Vitamin D2) (Vitamin D2) 1,250 Mcg Capsule, 1,250 MCG PO MON, (Reported) Entered as Reported by: JULIANA GARNICA on 06/08/21 1155 Last Action: Reviewed Gabapentin (Gabapentin) 400 Mg Capsule, 400 MG PO BID, (Reported) Entered as Reported by: MARK XIAO on 06/30/17 1431 Last Action: Reviewed Insulin Degludec (Tresiba Flextouch U-100) 100 Unit/1 Ml Insuln.pen, 45 UNIT SQ DAILY, (Reported) Entered as Reported by: TIANA WALTON on 02/15/18 1009 Last Action: Reviewed Liraglutide (Victoza 3-Rhett) 0.6 Mg/0.1 Ml Pen.injctr, 1.8 MG SQ DAILY, (Reported) Entered as Reported by: CHRISTIAN VILLEGAS on 12/21/20 1015 Last Action: Reviewed Pantoprazole Sodium (Pantoprazole Sodium) 40 Mg Tablet.dr, 40 MG PO BID, (Reported) Entered as Reported by: TIANA WALTON on 02/15/18 1009 Last Action: Reviewed Sulfamethoxazole/Trimethoprim (Bactrim Ds Tablet) 1 Each Tablet, 1 EACH PO BID Prescribed by: NERY THOMAS on 06/08/21 1200 [Aggrenox] 25-200 CAP, 1 EA PO BID, (Reported) Entered as Reported by: JULIANA GARNICA on 06/08/21 1155 Last Action: Reviewed Discontinued Medications Dipyridamole/Aspirin (Aggrenox 25 mg-200 mg Capsule) 1 Ea Cap, 1 CAP PO BID, (Reported) Discontinued Reason: Prescription changed Entered as Reported by: LUZMARIA LOO on 06/30/17 1236 Ergocalciferol (Vitamin D2) (Vitamin D2) 50,000 Unit Capsule, 50,000 UNITS PO Mo, (Reported) Discontinued Reason: No Longer Taking Entered as Reported by: MARK XIAO on 06/30/17 1419 Last Action: Discontinued Lovastatin (Lovastatin) 10 Mg Tablet, 10 MG PO DAILY, (Reported) Discontinued Reason: No Longer Taking Entered as Reported by: MARK XIAO on 06/30/17 1515 Last Action: Discontinued Past Fatezqu-Avwurc-Azbkxt Hx Patient Social History Smoking Status: Former Smoker Former Smoker, Quit: Jun 18, 2017 Type Used: Cigarettes 2nd Hand Smoke Exposure: No Recent Hopitalizations: Yes ([facility] 1-2 MONTH AGO for kidney function) Alcohol Use?: No Have you traveled recently?: No Immunizations Up To Date Tetanus Booster (TDap): Less than 5yrs Date of Pneumonia Vaccine: Aug 04, 2016 Seasonal Allergies Seasonal Allergies: Yes Surgeries History of Surgeries: Yes (rt leg stents, ABSCESS ON BUTTOCKS X3 (JUN 2017), GE juction tightening) Surgeries: Gallbladder, Orthopedic (right knee replacement), Tubal Ligation Respiratory History of Respiratory Disorde: No Cardiovascular History of Cardiac Disorders: Yes (STENT IN LEG X2) Cardiac Disorders: Hypertension, Peripheral Vascular Neurological History of Neurological Disord: Yes (STROKE 30 YEARS APPROX.) Neurological Disorders: Neuropathy, TIA 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 System Hx 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 Disorders: No Sexually Transmitted Disease: No HIV/AIDS: No [employer] History: Tubal Ligation Genitourinary History of Genitourinary Disor: No Gastrointestinal History of Gastrointestinal Di: Yes Gastrointestinal Disorders: Gastroesophageal Reflux, Chronic Constipation Musculoskeletal History of Musculoskeletal Dis: Yes (02/19/18 RIGHT ANKLE BIMALLEOLAR FX, RIGHT FOOT FX) Endocrine History of Endocrine Disorders: Yes Endocrine Disorders: Diabetes, Insulin dep HEENT History of 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 Review of Systems-General Constitutional: chills, diaphoresis; No dizziness, No fever; weakness; No weight gain; weight loss (10 pounds in last week) EENTM: vision loss (chronic- diabetes); No ear discharge, No ear pain, No blurred vision, No double vision, No eye pain, No hoarseness, No mouth pain, No nose pain, No throat pain Respiratory: No cough, No dyspnea on exertion, No hemoptysis, No short of breath Cardiovascular: No chest pain; edema (right foot swelling before injury); No palpitations; vascular heart diseas Gastrointestinal: No abdominal pain; constipation (chronic); No diarrhea, No hematemesis; loss of appetite (for the last week); No melena; nausea; No vomiting Genitourinary: No decreased output, No discharge, No dysuria; frequency (decreased frequency, urinated once today); No pain Musculoskeletal: No back pain; joint pain (left knee- chronic); No joint swelling, No muscle pain, No muscle stiffness; muscle cramps (right foot and calf), muscle weakness (right LE); No neck pain Skin: change in color, other (cellulitis of right dorsal foot and ankle, puncture wounds at base of 5 th digit and 5th metatarsal head) Psychiatric/Neurological: Denies Anxiety, Denies Depressed, Denies Emotional Problems, Denies Headache; Weakness Physical Exam-General Problems Physical Exam Vital Signs Vital Signs - First Documented 06/07/21 06/07/21 16:07 21:00 Temp 36.9 Pulse 74 Resp 18 B/P (MAP) 119/65 (83) Pulse Ox 98 O2 Delivery Room Air Capillary Refill : Less Than 3 Seconds General Appearance: mild distress, obese HEENT: PERRL/EOMI, TMs normal Neck: non-tender, supple, normal inspection Respiratory: chest non-tender, lungs clear, normal breath sounds, no respiratory distress, no accessory muscle use Cardiovascular: regular rate, rhythm, no gallop, no murmur Gastrointestinal: non tender, soft Rectal: deferred Back: normal inspection, no CVA tenderness, no vertebral tenderness Extremities: calf tenderness (right ), pedal edema, other (tenderness to palpation from foot to mid thigh of right side, glucose monitor in right arm) Neurologic/Psychiatric: alert, normal mood/affect, oriented x 3 Skin: normal color, warm/dry, other (cellulitis of right dorsal foot and ankle, puncture wounds at base of 5 th digit and 5th metatarsal head)) Lymphatic: no adenopathy (cervical or supraclavicular) Data Review Labs Laboratory Tests 06/07/21 17:04: White Blood Count 10.2, Red Blood Count 3.99, Hemoglobin 12.0, Hematocrit 38, Mean Corpuscular Volume 94, Mean Corpuscular Hemoglobin 30, Mean Corpuscular Hemoglobin Concent 32, Red Cell Distribution Width 13.4, Platelet Count 264, Mean Platelet Volume 11.5, Immature Granulocyte % (Auto) 1, Neutrophils (%) (Auto) 87H, Lymphocytes (%) (Auto) 6L, Monocytes (%) (Auto) 5, Eosinophils (%) (Auto) 1, Basophils (%) (Auto) 1, Neutrophils # (Auto) 8.9H, Lymphocytes # (Auto) 0.7L, Monocytes # (Auto) 0.5, Eosinophils # (Auto) 0.1, Basophils # (Auto) 0.1, Immature Granulocyte # (Auto) 0.1, Neutrophils % (Manual) 87, Lymphocytes % (Manual) 11, Monocytes % (Manual) 2, Blood Morphology Comment NORMAL, Sodium Level 130L, Potassium Level 4.4, Chloride Level 97L, Carbon Dioxide Level 23, Anion Gap 10, Blood Urea Nitrogen 24H, Creatinine 2.07H, Estimat Glomerular Filtration Rate 24, BUN/Creatinine Ratio 12, Glucose Level 209H, Lactic Acid Level 0.83, Calcium Level 9.3, Corrected Calcium 9.6, Total Bilirubin 0.4, Aspartate Amino Transf (AST/SGOT) 20, Alanine Aminotransferase (ALT/SGPT) 14, Alkaline Phosphatase 52, C-Reactive Protein High Sensitivity 12.07H, Total Protein 7.7, Albumin 3.6, Procalcitonin 0.23H 06/07/21 20:42: Glucometer 170H 06/08/21 05:21: Glucometer 124H 06/08/21 05:43: White Blood Count 7.7, Red Blood Count 3.72L, Hemoglobin 11.4L, Hematocrit 36, Mean Corpuscular Volume 97, Mean Corpuscular Hemoglobin 31, Mean Corpuscular Hemoglobin Concent 32, Red Cell Distribution Width 13.6, Platelet Count 198, Mean Platelet Volume 11.9, Immature Granulocyte % (Auto) 0, Neutrophils (%) (Auto) 81H, Lymphocytes (%) (Auto) 12, Monocytes (%) (Auto) 6, Eosinophils (%) (Auto) 1, Basophils (%) (Auto) 1, Neutrophils # (Auto) 6.2, Lymphocytes # (Auto) 0.9L, Monocytes # (Auto) 0.4, Eosinophils # (Auto) 0.1, Basophils # (Auto) 0.1, Immature Granulocyte # (Auto) 0.0, Sodium Level 127L, Potassium Level 3.9, Chloride Level 100, Carbon Dioxide Level 15L, Anion Gap 12, Blood Urea Nitrogen 24H, Creatinine 2.06H, Estimat Glomerular Filtration Rate 24, BUN/Creatinine Ratio 12, Glucose Level 123H, Calcium Level 8.2L 06/08/21 10:27: Glucometer 70 06/08/21 12:15: Vancomycin Level Trough 17.1 Microbiology 06/07/21 Gram Stain, Resulted Pending 06/07/21 Wound Culture - Preliminary, Resulted Probable Staph Aureus Assessment/Plan Assessment/Plan Assessment/Plan Assessment: cellulitis of right dorsal foot and ankle puncture wounds at base of 5 th digit and 5th metatarsal head right foot x-ray on 06/07- no bone destruction, diffuse swelling wound culture on 06/07- pending, probably staph aureus, MRSA screen to follow diabetes GERD Plan: continue IV antibiotics continue Tylenol for pain management continue home medications SAVANA HEIN DO 06/08/21 1535: History of Present Illness History of Present Illness Time Seen by Provider: 13:16 History of Present Illness Surgery asked to consult regarding Left foot cellulitis. HPI per ED: Patient is a 65-year-old female presents ED with right leg swelling, redness and pain. Patient is a diabetic. She states her blood sugar has been controlled. 4 to 5 days ago she stepped on a board of yolanda nails. She immediately felt the pain and remove the nails. Noted redness, swelling from the puncture site with redness and swelling migrating up her right leg. Was seen by Dr. Butler her primary care physician who sent the patient to the ED for further evaluation, admission and IV antibiotics. Patient is not up-to-date on her tetanus. She states she feels feverish, weak and fatigued. Denies cough, shortness of breath, chest pain, abdominal pain, headache, dizziness When I saw pt she stated she thought the foot looks worse, pain increase and redness worse. Can't eat "cause the pain is making me not hungry". She did eat some of her lunch, but couldn't eat all of it. Allergies and Home Medications Allergies Coded Allergies: No Known Drug Allergies (Unverified , 12/21/20) Patient Home Medication List Home Medication List Reviewed: Yes Acetaminophen (Tylenol Extra Strength) 500 Mg Tablet, 500 MG PO Q6H PRN for PAIN-MILD (1-4), (Reported) Entered as Reported by: JULIANA GARNICA on 06/08/21 4045 Last Action: Reviewed Enalapril Maleate (Enalapril Maleate) 2.5 Mg Tablet, 2.5 MG PO DAILY, (Reported) Entered as Reported by: MARK XIAO on 06/30/17 1419 Last Action: Reviewed Ergocalciferol (Vitamin D2) (Vitamin D2) 1,250 Mcg Capsule, 1,250 MCG PO MON, (Reported) Entered as Reported by: JULIANA GARNICA on 06/08/21 1155 Last Action: Reviewed Gabapentin (Gabapentin) 400 Mg Capsule, 400 MG PO BID, (Reported) Entered as Reported by: MARK XIAO on 06/30/17 1431 Last Action: Reviewed Insulin Degludec (Tresiba Flextouch U-100) 100 Unit/1 Ml Insuln.pen, 45 UNIT SQ DAILY, (Reported) Entered as Reported by: TIANA WALTON on 02/15/18 1009 Last Action: Reviewed Liraglutide (Victoza 3-Rhett) 0.6 Mg/0.1 Ml Pen.injctr, 1.8 MG SQ DAILY, (Reported) Entered as Reported by: CHRISTIAN VILLEGAS on 12/21/20 1015 Last Action: Reviewed Pantoprazole Sodium (Pantoprazole Sodium) 40 Mg Tablet.dr, 40 MG PO BID, (Reported) Entered as Reported by: TIANA WALTON on 02/15/18 100 Last Action: Reviewed Sulfamethoxazole/Trimethoprim (Bactrim Ds Tablet) 1 Each Tablet, 1 EACH PO BID Prescribed by: NERY THOMAS on 06/08/21 1200 [Aggrenox] 25-200 CAP, 1 EA PO BID, (Reported) Entered as Reported by: JULIANA GARNICA on 06/08/21 1155 Last Action: Reviewed Discontinued Medications Dipyridamole/Aspirin (Aggrenox 25 mg-200 mg Capsule) 1 Ea Cap, 1 CAP PO BID, (Reported) Discontinued Reason: Prescription changed Entered as Reported by: LUZMARIA LOO on 06/30/17 1236 Ergocalciferol (Vitamin D2) (Vitamin D2) 50,000 Unit Capsule, 50,000 UNITS PO Mo, (Reported) Discontinued Reason: No Longer Taking Entered as Reported by: MARK XIAO on 06/30/17 1419 Last Action: Discontinued Lovastatin (Lovastatin) 10 Mg Tablet, 10 MG PO DAILY, (Reported) Discontinued Reason: No Longer Taking Entered as Reported by: MARK XIAO on 06/30/17 5336 Last Action: Discontinued Past Kjuuacd-Kjhdaj-Lejpvq Hx Patient Social History Smoking Status: Former Smoker Recent Hopitalizations: Yes ([facility] 1-2 MONTH AGO for kidney function) Alcohol Use?: Yes Surgeries History of Surgeries: Yes (rt leg stents, ABSCESS ON BUTTOCKS X3 (JUN 2017), GE juction tightening) Surgeries: Gallbladder, Orthopedic (right knee replacement), Tubal Ligation Respiratory History of Respiratory Disorde: No Cardiovascular History of Cardiac Disorders: Yes Cardiac Disorders: Hypertension Neurological History of Neurological Disord: Yes (STROKE 30 YEARS APPROX.) Neurological Disorders: Neuropathy, TIA Genitourinary History of Genitourinary Disor: Yes Genitourinary Disorders: Renal Failure Gastrointestinal History of Gastrointestinal Di: Yes Gastrointestinal Disorders: Gastroesophageal Reflux, Gall Bladder Disease Musculoskeletal History of Musculoskeletal Dis: Yes Musculoskeletal Disorders: Arthritis, Fractures Endocrine History of Endocrine Disorders: Yes Endocrine Disorders: Diabetes, Insulin dep HEENT History of HEENT Disorders: No Loss of Vision: Right (partial blindness) Hearing Impairment: Hard of Hearing Cancer History of Cancer: No Psychosocial History of Psychiatric Problem: No Family Medical History Significant Family History: Heart Disease, Cancer (cervical- mother, breast- sister), Diabetes, Hypertension, Vascular Disease Family Medial History: Patient reports no known family medical history. Review of Systems-General Constitutional: chills; No dizziness, No fever; weakness, weight loss (10 pounds in last week) EENTM: vision loss (chronic- diabetes); No ear discharge, No hoarseness, No mouth pain Respiratory: No cough, No dyspnea on exertion, No hemoptysis, No short of breath Cardiovascular: No chest pain; edema (right foot swelling before injury); No palpitations; vascular heart diseas Gastrointestinal: No abdominal pain; constipation (chronic); No diarrhea, No hematemesis; loss of appetite (for the last week); No melena; nausea; No vomiting Genitourinary: No decreased output, No discharge, No dysuria; frequency (decreased frequency, urinated once today) Musculoskeletal: No back pain; joint pain (left knee- chronic), joint swelling; No muscle pain; muscle stiffness; No muscle cramps (right foot and calf); muscle weakness (right LE); No neck pain Skin: change in color (right foot), other (cellulitis of right dorsal foot and ankle, puncture wounds at base of 5 th digit and 5th metatarsal head) Psychiatric/Neurological: Denies Anxiety, Denies Depressed, Denies Headache; Weakness Physical Exam-General Problems Physical Exam General Appearance: mild distress, obese Eyes: Bilateral Eye PERRL, Bilateral Eye EOMI HEENT: pharynx normal; No scleral icterus (R), No scleral icterus (L) Neck: supple, normal inspection Respiratory: lungs clear, normal breath sounds, no respiratory distress, no accessory muscle use Cardiovascular: regular rate, rhythm, no murmur Gastrointestinal: non tender, soft, no organomegaly Rectal: deferred Back: no CVA tenderness, no vertebral tenderness Extremities: calf tenderness (right ), pedal edema, other (tenderness to palpation from foot to mid thigh of right side, glucose monitor in right arm. Fluctuance on top of foot) Neurologic/Psychiatric: alert, normal mood/affect Skin: normal color, warm/dry, other (cellulitis of right dorsal foot and ankle, puncture wounds at base of 5 th digit and 5th metatarsal head)) Lymphatic: no adenopathy (cervical or supraclavicular) Data Review Radiology Date of Exam:06/07/21 FOOT, RIGHT, 3 VIEW INDICATION: Right foot pain AP, oblique and lateral views of the right foot are obtained with comparison made to study of 02/19/2018. There has been mild increase in spurring about the distal 1st metacarpal. Resorption of the 5th distal phalanx is again noted. There is continued enthesopathy at the posterior calcaneus. Overall, there is diffuse foot swelling. IMPRESSION: Mild worsening of chronic degenerative findings with resorption of the 5th distal phalanx again noted. There is diffuse swelling which may be due to cellulitis however no bone destruction is appreciated. Dictated by: Dictated on workstation # [id number] Dict: 06/07/21 1720 Trans: 06/07/21 1824 [facility] [id number] Interpreted by: ANNA MCMILLAN MD Electronically signed by: ANNA MCMILLAN MD 06/07/21 4603 Assessment/Plan Assessment/Plan Assessment/Plan Abscess/cellulitis of right foot Puncture wounds at base of 5 th digit and 5th metatarsal head right foot x-ray on 06/07- no bone destruction, diffuse swelling wound culture on 06/07- pending, probably staph aureus, MRSA screen to follow diabetes GERD Plan: NPO after midnight, Consent for I&D with debridement and possible packing of right foot. Continue IV antibiotics, pain management, continue home medications Discussed risks and complications of procedure with pt, not limited to pain, bleeding, infection, scar, damage to nerve and need for further procedure. All questions answered to her satisfaction; since she ate lunch will have to plan on surgery tomorrow. Supervisory-Addendum Brief Verification & Attestation Participated in pt care: history, MDM, physical Personally performed: exam, history, MDM, supervision of care Care discussed with: Medical Student Procedures: n/a Verification and Attestation of Medical Student E/M Service A medical student performed and documented this service. I then reviewed and verified all information documented by the medical student and made modifications to such information, when appropriate. I personally performed a physical exam, medical decision making and then discussed any differences between the notes and made revisions as necessary to create one note. Savana Hein , 06/08/21 , 15:42 NILES CHO MED STUDENT Jun 08, 2021 13:51 SAVANA HEIN DO Jun 08, 2021 15:35
[2021-06-08 16:00] VITALS: BP 100/67
--- NOTE | 2021-06-08 16:29 | History & Physical-Hospitalist ---
History of Present Illness HPI/Chief Complaint Chantale Salguero is a 65 year old female with PMH HTN, HLD, T2DM on insulin, CKD4, GERD, obesity, who presented with a right foot wound. She stepped on some nails recently. She has a rash on her foot. It is swollen. She has some pain in her foot. She denies fevers. She denies nausea and vomiting. She denies chest pain and shortness of breath. She has never had a cellulitis before. Source: patient Exam Limitations: no limitations Date Seen 06/08/21 Time Seen by a Provider: 10:30 Attending Physician Nery Thomas MD PCP Usman Butler DO Referring Physician Date of Admission Jun 07, 2021 at 17:55 Home Medications & Allergies Home Medications Reviewed patient Home Medication Reconciliation performed by pharmacy medication reconciliations traffic technician and/or nursing. Patients Allergies have been reviewed. Allergies Allergies Coded Allergies No Known Drug Allergies (Unverified12/21/20) Past Skegifi-Owaunk-Cjeloj Hx Patient Social History Tobacco Use?: No Smoking Status: Former Smoker Use of E-Cig and/or Vaping dev: No Substance use?: No Alcohol Use?: Yes Pt feels they are or have been: No Immunizations Up To Date First/Initial COVID19 Vaccinat: 04/10/21 Second COVID19 Vaccination Kevin: 05/08/21 Date of Pneumonia Vaccine: Aug 04, 2016 Seasonal Allergies Seasonal Allergies: Yes Current Status status: No Advance Directives: No Communicates: Verbally Primary Language: Stateless Preferred Spoken Language: Stateless Is interpretation needed?: No Sensory deficits: Vision impairment, Hearing impairment Past Medical History Surgeries: Gallbladder, Orthopedic (right knee replacement), Tubal Ligation Hypertension Neuropathy, 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 Heart Disease, Cancer (cervical- mother, breast-sister), Diabetes, Hypertension, Vascular Disease Review of Systems Constitutional: malaise, weakness EENTM: no symptoms reported Respiratory: no symptoms reported Cardiovascular: no symptoms reported Gastrointestinal: no symptoms reported Genitourinary: no symptoms reported Musculoskeletal: no symptoms reported Skin: rash Psychiatric/Neurological: No Symptoms Reported Physical Exam Physical Exam Vital Signs Vital Signs - First Documented 06/07/21 06/07/21 16:07 21:00 Temp 36.9 Pulse 74 Resp 18 B/P (MAP) 119/65 (83) Pulse Ox 98 O2 Delivery Room Air Capillary Refill : Less Than 3 Seconds Height, Weight, BMI Height: 5'4.00" Weight: 205lbs. 9.0oz. [id number]; 30.06 BMI Method:Stated General Appearance: No Apparent Distress, Obese HEENT: PERRL/EOMI, Pharynx Normal Neck: Normal Inspection, Supple Respiratory: Lungs Clear, Normal Breath Sounds, No Respiratory Distress Cardiovascular: Regular Rate, Rhythm, No Edema, No Murmur Gastrointestinal: Normal Bowel Sounds, Non Tender, Soft Extremity: Inflammation, Swelling Neurologic/Psychiatric: Alert, Oriented x3, Normal Mood/Affect Skin: Erythema, Rash, Other (multiple puncture wounds on right plantar surface with erythema) Results Results/Procedures Labs Laboratory Tests 06/07/21 17:04 06/08/21 05:43 Patient resulted labs reviewed. Imaging: Reviewed Imaging Report Assessment/Plan Admission Diagnosis Cellulitis Admission Status: Observation Assessment and Plan Cellulitis Abscess Received tetanus vaccine in ER Started on Vanc and Zosyn for diabetic foot wound Wound culture with Staph aureus Wound care consulted Surgery consulted Planning for I&D tomorrow morning T2DM Levemir Novolog Sliding scale Gabapentin CKD4 Cr appears to be at baseline Monitor HTN GERD Continue home meds Obesity Clinically significant, no acute management needs DVT prophylaxis: held for procedure Diagnosis/Problems Diagnosis/Problems (1) Cellulitis Status: Acute Qualifiers: Site of cellulitis of extremity: lower extremity Laterality: right Site of cellulitis: extremity Qualified Codes: L03.115 - Cellulitis of right lower limb (2) Abscess Status: Acute (3) T2DM (type 2 diabetes mellitus) Status: Chronic Qualifiers: Diabetes mellitus terminal press operator insulin use: with terminal press operator use Diabetes mellitus complication status: with skin complications Diabetes mellitus complication detail: with other skin complication Qualified Codes: E11.628 - Type 2 diabetes mellitus with other skin complications; Z79.4 - [facility] (current) use of insulin NERY THOMAS MD Jun 08, 2021 16:29
[2021-06-08] MEDS: ACETAMINOPHEN 325 MG TABLET PO PRN (17:20)
[2021-06-08 20:02] VITALS: BP 104/66
[2021-06-08] MEDS: GABAPENTIN 400 MG (NEURONTIN) CAP PO SCH (21:22)
[2021-06-08] MEDS: PANTOPRAZOLE 40 MG (PROTONIX) TAB PO SCH (21:22)
[2021-06-09] VITALS (14 sets, daily range): BP systolic 91–144; BP diastolic 47–83
[2021-06-09] MEDS: LACTATED RINGERS 1,000 ML IV SCH ×3 (03:06→18:02)
[2021-06-09] MEDS ORDERED: TROUGH ORDER-PHARMACY XX ONE (05:00)
[2021-06-09] MEDS: CATHETER FLUSH 10 ML SYR IV SCH ×3 (06:01→21:14)
[2021-06-09 06:02] LABS: BASOPHILS # (AUTO) 0.1 10^3/uL (0.0-0.1); BASOPHILS % (AUTO) 1 % (0-10); EOSINOPHILS # (AUTO) 0.4 10^3/uL (0.0-0.3); EOSINOPHILS % (AUTO) 5 % (0-10); HEMATOCRIT 31 % (35-52); HEMOGLOBIN 10.4 g/dL (11.5-16.0); LYMPHOCYTES % (AUTO) 12 % (12-44); MEAN CORPUSCULAR HEMOGLOBIN 31 pg (25-34); MEAN CORPUSCULAR HGB CONC 34 g/dL (32-36); MEAN CORPUSCULAR VOLUME 91 fL (80-99); MONOCYTES # (AUTO) 0.7 10^3/uL (0.0-1.0); MONOCYTES % (AUTO) 8 % (0-12); NEUTROPHILS # (AUTO) 6.2 10^3/uL (1.8-7.8); NEUTROPHILS % (AUTO) 74 % (42-75); PLATELET COUNT 217 10^3/uL (130-400); WHITE BLOOD COUNT 8.4 10^3/uL (4.3-11.0)
[2021-06-09 06:33] LABS: POTASSIUM 4.2 MMOL/L (3.6-5.0)
[2021-06-09 06:34] LABS: CALCIUM 8.2 MG/DL (8.5-10.1)
[2021-06-09 06:38] LABS: CREATININE SERUM 1.99 MG/DL (0.60-1.30)
[2021-06-09 06:47] LABS: VANCOMYCIN,TROUGH 12.7 UG/ML (10.0-20.0)
[2021-06-09] MEDS: inSUlin ASPART (NovoLOG) 1 UNIT/0.01 ML (CHARGE PER UNIT) SC SCH ×7 (06:53→20:25)
[2021-06-09] MEDS: VANCOMYCIN 1 GM/NS 250 ML IVPB IV SCH ×2 (06:53)
--- NOTE | 2021-06-09 07:14 | Progress Note - Surgery ---
FLACO JAMIL 06/09/21 0714: Subjective Date Seen by a Provider: Jun 09, 2021 Time Seen by a Provider: 06:14 Subjective/Events-last exam Pt reports that she is still having right foot pain from stepping on 2 nails. States that it hurt all night. Reports that she has been NPO since yesterday in prep for surgery today. Said that besides the foot that she is otherwise doing fine. Review of Systems General: No Chills, No Night Sweats HEENT: No Head Aches, No Visual Changes Pulmonary: No Dyspnea, No Cough Cardiovascular: No: Chest Pain, Palpitations Gastrointestinal: No: Nausea, Vomiting, Abdominal Pain Genitourinary: No Dysuria, No Frequency Musculoskeletal: foot pain (rt ); No: neck pain, shoulder pain, arm pain, back pain Neurological: No: Weakness, Numbness Focused Exam Lactate Level 06/07/21 17:04: Lactic Acid Level 0.83 Time of Focused Exam: 13:00 Objective Exam Vital Signs Date Time Temp Pulse Resp B/P (MAP) Pulse Ox O2 Delivery O2 Flow Rate FiO2 06/09/21 04:23 38.0 69 17 104/58 (73) 96 Room Air 06/09/21 00:00 36.2 58 17 100/59 (73) 98 Room Air 06/08/21 20:59 Room Air 06/08/21 20:02 36.1 61 18 104/66 (79) 98 Room Air 06/08/21 16:00 36.5 99 18 100/67 (78) 97 Room Air 06/08/21 11:26 37.2 76 20 103/52 (69) 95 Room Air 06/08/21 08:12 37.2 73 20 98/46 (63) 95 Room Air 06/08/21 08:00 Room Air I & O 06/09/21 07:00 Intake Total 1722 ml Balance 1722 ml Capillary Refill : Less Than 3 Seconds General Appearance: No Apparent Distress, Obese HEENT: PERRL/EOMI; No Photophobia Neck: Normal Inspection, Non Tender, Supple Respiratory: Lungs Clear, Normal Breath Sounds, No Respiratory Distress Cardiovascular: Regular Rate, Rhythm, No Murmur, Normal Peripheral Pulses Gastrointestinal: non tender, soft, no organomegaly Extremity: Inflammation, Swelling (Rt foot and right leg are larger than lt) Neurologic/Psychiatric: Alert, Oriented x3, Normal Mood/Affect Skin: Erythema, Other (multiple puncture wounds on right plantar surface with erythema) Lymphatic: No Adenopathy (cervical ) Results Lab Laboratory Tests 06/08/21 10:27: Glucometer 70 06/08/21 12:15: Vancomycin Level Trough 17.1 06/08/21 16:01: Glucometer 90 06/08/21 20:19: Glucometer 94 06/09/21 05:35: White Blood Count 8.4, Red Blood Count 3.36L, Hemoglobin 10.4L, Hematocrit 31L, Mean Corpuscular Volume 91, Mean Corpuscular Hemoglobin 31, Mean Corpuscular Hemoglobin Concent 34, Red Cell Distribution Width 13.7, Platelet Count 217, Mean Platelet Volume 12.0, Immature Granulocyte % (Auto) 0, Neutrophils (%) (Auto) 74, Lymphocytes (%) (Auto) 12, Monocytes (%) (Auto) 8, Eosinophils (%) (Auto) 5, Basophils (%) (Auto) 1, Neutrophils # (Auto) 6.2, Lymphocytes # (Auto) 1.0, Monocytes # (Auto) 0.7, Eosinophils # (Auto) 0.4H, Basophils # (Auto) 0.1, Immature Granulocyte # (Auto) 0.0, Sodium Level 131L, Potassium Level 4.2, Chloride Level 101, Carbon Dioxide Level 18L, Anion Gap 12, Blood Urea Nitrogen 25H, Creatinine 1.99H, Estimat Glomerular Filtration Rate 25, BUN/Creatinine Ratio 13, Glucose Level 88, Calcium Level 8.2L, Vancomycin Level Trough 12.7 06/09/21 06:16: Glucometer 89 Microbiology 06/07/21 Gram Stain, Resulted Pending 06/07/21 Wound Culture - Preliminary, Resulted Mixed Bacterial Jann Staphylococcus aureus 06/07/21 Blood Culture - Preliminary, Resulted No growth Assessment/Plan Assessment/Plan Assessment/Plan Abscess/cellulitis of right foot Puncture wounds at base of 5th digit and 5th metatarsal head right foot x-ray on 06/07- no bone destruction, diffuse swelling wound culture on 06/07- mixed bacterial jann staph aureus, presumptive MRSA diabetes GERD Plan: Continue NPO, Continue IV antibiotics, pain management, continue home medications Discussion of risks and complications of procedure with pt, not limited to pain, bleeding, infection, scar, damage to nerve and need for further procedure done yesterday by Dr. Murphy . All questions answered to her satisfaction. Surgery planed for today SAVANA MURPHY DO 06/09/21 1208: Subjective Time Seen by a Provider: 11:27 Subjective/Events-last exam Pt seen and examined, no questions plan to OR. Review of Systems General: No Chills, No Night Sweats Pulmonary: No Dyspnea, No Cough Cardiovascular: No: Chest Pain, Palpitations Musculoskeletal: foot pain (rt ) Objective Exam General Appearance: No Apparent Distress, Obese Respiratory: Lungs Clear, Normal Breath Sounds, No Respiratory Distress Cardiovascular: No Murmur Gastrointestinal: non tender, soft Skin: Other (multiple puncture wounds on right plantar surface, erythema is worse today compared to yesterday) Assessment/Plan Assessment/Plan Assessment/Plan Abscess/cellulitis of right foot Puncture wounds at base of 5th digit and 5th metatarsal head right foot x-ray on 06/07- no bone destruction, diffuse swelling wound culture on 06/07- mixed bacterial jann staph aureus, presumptive MRSA diabetes GERD Plan: Continue NPO, Continue IV antibiotics, pain management, continue home medications. Plan to OR Supervisory-Addendum Brief Verification & Attestation Participated in pt care: history, MDM, physical Personally performed: exam, history, MDM, supervision of care Care discussed with: Medical Student Procedures: n/a Verification and Attestation of Medical Student E/M Service A medical student performed and documented this service. I then reviewed and verified all information documented by the medical student and made modifications to such information, when appropriate. I personally performed a p hysical exam, medical decision making and then discussed any differences between the notes and made revisions as necessary to create one note. Savana Murphy , 06/09/21 , 12:08 FLACO JAMIL Jun 09, 2021 07:14 SAVANA MURPHY DO Jun 09, 2021 12:08
[2021-06-09] MEDS: GABAPENTIN 400 MG (NEURONTIN) CAP PO SCH ×2 (08:34→22:11)
[2021-06-09] MEDS: ENALAPRIL 2.5 MG (VASOTEC) TAB PO SCH (08:34)
[2021-06-09] MEDS: PANTOPRAZOLE 40 MG (PROTONIX) TAB PO SCH ×2 (08:34→20:26)
[2021-06-09] MEDS: PIPERACILLIN/TAZOBACTAM (BULK) 4.5 GM in NS (IVPB) 100 ML IV SCH ×3 (08:34→21:14)
[2021-06-09] MEDS: DOCUSATE SODIUM 100 MG (COLACE) CAP PO SCH ×2 (09:00→20:26)
[2021-06-09] MEDS: SENNOSIDES 8.6 MG (SENOKOT) TAB PO SCH ×2 (09:00→20:26)
[2021-06-09] MEDS ORDERED: LIDOCAINE/EPI 1%-1:100,000 (XYLOCAINE) 20ML ONE (11:11)
[2021-06-09] MEDS ORDERED: proPOfol 200 MG/20 ML (DIPRIVAN) VIAL IV ONE (11:36)
[2021-06-09] MEDS ORDERED: MIDAZOLAM 2 MG/2 ML (VERSED) VIAL ONE (11:36)
[2021-06-09] MEDS ORDERED: ONDANSETRON 4 MG/2 ML (SDV) Z0FRAN ONE (11:36)
[2021-06-09] MEDS ORDERED: LIDOCAINE PF 2% 5 ML (XYLOCAINE) VIAL ONE (11:36)
[2021-06-09] MEDS ORDERED: fentaNYL INJ 100 MCG/2 ML AMP ONE (11:36)
--- NOTE | 2021-06-09 11:57 | Progress Note - Hospitalist ---
Subjective HPI/CC On Admission Date Seen by Provider: Jun 09, 2021 Time Seen by Provider: 11:00 Chantale Salguero is a 65 year old female with PMH HTN, HLD, T2DM on insulin, CKD4, GERD, obesity, who presented with a right foot wound. She stepped on some nails recently. She has a rash on her foot. It is swollen. She has some pain in her foot. She denies fevers. She denies nausea and vomiting. She denies chest pain and shortness of breath. She has never had a cellulitis before. Subjective/Events-last exam Her foot is feeling worse today. She is having more pain. She is not having any worsening of rash. She feels more swollen. She has been having fevers. Focused Exam Lactate Level 06/07/21 17:04: Lactic Acid Level 0.83 Time of Focused Exam: 13:00 Objective Exam Vital Signs Vital Signs Date Time Temp Pulse Resp B/P (MAP) Pulse Ox O2 Delivery O2 Flow Rate FiO2 06/09/21 08:00 37.1 72 18 144/83 (103) 95 Room Air Capillary Refill : Less Than 3 Seconds General Appearance: No Apparent Distress, Obese Respiratory: Lungs Clear, Normal Breath Sounds, No Respiratory Distress Cardiovascular: Regular Rate, Rhythm, No Murmur Gastrointestinal: Normal Bowel Sounds, Non Tender, Soft Extremity: Non Tender, Inflammation Neurologic/Psychiatric: Alert, Oriented x3, No Motor/Sensory Deficits, Normal Mood/Affect Skin: Erythema (warmth, swelling, tenderness of right foot) Results/Procedures Lab Laboratory Tests 06/09/21 05:35 Patient resulted labs reviewed. Imaging: Reviewed Imaging Report Assessment/Plan Assessment and Plan Assess & Plan/Chief Complaint Cellulitis Abscess Received tetanus vaccine in ER Continue Vanc and Zosyn for diabetic foot wound Wound culture with presumed MRSA, final pending Wound care following Surgery following Planning for I&D today T2DM Levemir Novolog Sliding scale Gabapentin CKD4 Cr appears to be at baseline Monitor HTN GERD Continue home meds Obesity Clinically significant, no acute management needs DVT prophylaxis: held for procedure Diagnosis/Problems Diagnosis/Problems (1) Cellulitis Status: Acute Qualifiers: Site of cellulitis of extremity: lower extremity Laterality: right Site of cellulitis: extremity Qualified Codes: L03.115 - Cellulitis of right lower limb (2) Abscess Status: Acute (3) T2DM (type 2 diabetes mellitus) Status: Chronic Qualifiers: Diabetes mellitus shelter insulin use: with long term care phlebotomist use Diabetes mellitus complication status: with skin complications Diabetes mellitus complication detail: with other skin complication Qualified Codes: E11.628 - Type 2 diabetes mellitus with other skin complications; Z79.4 - [employer] (curre nt) use of insulin NERY THOMAS MD Jun 09, 2021 11:57
[2021-06-09] MEDS ORDERED: NS IV 500 ML 500 ML IV ONE (12:00)
[2021-06-09] MEDS ORDERED: SEVOFLURANE (ULTANE) 15 ML INHAL SOLN ONE (12:04)
--- NOTE | 2021-06-09 12:07 | Progress Note-Post Operative ---
Post-Operative Progess Note Surgeon (s)/Screen Operator (s) Surgeon SAVANA HEIN DO Screen Operator: FRANCISCA Garcia Pre-Operative Diagnosis right foot abscess Post-Operative Diagnosis Right fight necrotizing fasciitis and into 5th toe Procedure & Operative Findings Date of Procedure 06/09/21 Procedure Performed/Findings I&D with debridement of necrotic tissue incision 7.5 x 4cm on top, 3cm incision on bottom, tunneling on top totals 14 long and 7.5 wide Anesthesia Type LMA Estimated Blood Loss Estimated blood loss (mL): less than 10ml Specimens/Packing Specimens Removed necrotic skin and fascia SAVANA HEIN DO Jun 09, 2021 12:07
[2021-06-09] MEDS ORDERED: morphine INJ 10 MG/ML 1ML (SYR OR VIAL) ONE (12:36)
[2021-06-09] MEDS ORDERED: morphine INJ 10 MG/ML 1ML (SYR OR VIAL) IVP ONE ×2 (12:45)
[2021-06-09] MEDS ORDERED: ONDANSETRON 4 MG/2 ML (SDV) Z0FRAN IVP PRN ×2 (12:45)
--- NOTE | 2021-06-09 14:01 | Anesthesia-General Post-Op ---
General Patient Condition Mental Status/LOC: Same as Preop Cardiovascular: Satisfactory Nausea/Vomiting: Absent Respiratory: Satisfactory Pain: Controlled Complications: Absent Post Op Complications Complications None Follow Up Care/Instructions Patient Instructions None needed. Anesthesia/Patient Condition Patient Condition Patient is doing well, no complaints, stable vital signs, no apparent adverse anesthesia problems. JACINDA CHRISTY DO Jun 09, 2021 14:01
[2021-06-10] VITALS (12 sets, daily range): BP systolic 84–119; BP diastolic 41–67
--- NOTE | 2021-06-10 01:21 | OPERATIVE REPORT ---
DATE OF SERVICE: 06/09/2021 PREOPERATIVE DIAGNOSIS: Right foot abscess. POSTOPERATIVE DIAGNOSIS: Right foot necrotizing fasciitis into the fifth toe. PROCEDURE: Incision and drainage with debridement of necrotic tissue. Incision measured about 7.5 x 4 cm, on top of the small 3 cm incision on the plantar aspect of the foot. There was also some tunneling on the top was about 14 cm long and about 7.5 cm wide. ANESTHESIA: LMA. SPECIMEN: Necrotic skin and fascia. Abscess culture. BLOOD LOSS: Less than 10 mL. FLUIDS: Per anesthesia. POSTOPERATIVE CONDITION: Stable. INDICATIONS FOR PROCEDURE: The patient is a 65-year-old female who has what looked like abscess, cellulitis on her right foot. She had stepped on nails and had not sought treatment for 3 or 4 days. FINDINGS: The patient had purulent fluid and what looked like possibly necrotizing fasciitis with some tissue. PROCEDURE NOTE: After informed consent was obtained, the patient was brought to the operating room, placed on the table in supine position. Right leg was propped up the foot was sterilely prepped and draped in normal fashion. Local lidocaine was used to try and perform a foot block in front of both the medial and lateral malleoli on the right foot, foot had been marked and everyone agreed and during timeout. Just proximal to the fifth toe, she had an area of now necrotic tissue, elected to excise this, this measured about 1 cm wide by about a 1.5 cm long. This was cut off and passed off table and sent to pathology. Upon making the first incision, got some purulent fluid. So, I elected to get fluid culture. Once we opened this and got out the purulent fluid, then cut this portion of skin off, had to increase the incision, so transversely. It was measured about 4 cm and then back went about 7.5 cm towards the ankles. On the bottom base of the foot just below the fifth toe, also there is another abscess, so I made a small incision here and got out some purulent fluid, so made a slightly bigger. This was 3 cm long and then actually started breaking up tissue along the fascial plane, there was some necrotic fascia. Removed about 2 x 2 cm area of necrotic fascia, sent this to pathology. Copiously irrigated with sterile saline. The tunneling went up in total from the distal portion through the incision, which was 7.5 cm and another about 7 cm tunneling and then another 3.5 cm tunneling across the transverse portion of the foot. There was some bleeding, did not really see necrotic tissue, but it did all looked dusky after copiously irrigating this and actually then kind of pushing on the toe and tunneling up the tissue into the toe took out more purulent fluid and then irrigating here with saline. Elected to pack this with half-inch iodoform packing, packed this and then lightly wrapped it with Kerlix. The patient tolerated the procedure. She was transferred to recovery room in stable condition. Sponge, instrument and needle count correct at the end of the case. Job ID: [id number] DocumentID: [id number] Dictated Date: 06/09/2021 14:33:33 Wax Machine Operator Date: 06/10/2021 01:19:56 Dictated By: SAVANA HEIN DO
[2021-06-10] MEDS: CATHETER FLUSH 10 ML SYR IV SCH ×3 (05:17→20:45)
[2021-06-10] MEDS: PIPERACILLIN/TAZOBACTAM (BULK) 4.5 GM in NS (IVPB) 100 ML IV SCH ×3 (05:17→21:34)
[2021-06-10] MEDS: inSUlin ASPART (NovoLOG) 1 UNIT/0.01 ML (CHARGE PER UNIT) SC SCH ×7 (06:00→19:57)
[2021-06-10 06:02] LABS: BASOPHILS # (AUTO) 0.1 10^3/uL (0.0-0.1); BASOPHILS % (AUTO) 1 % (0-10); EOSINOPHILS # (AUTO) 0.5 10^3/uL (0.0-0.3); EOSINOPHILS % (AUTO) 6 % (0-10); HEMATOCRIT 30 % (35-52); HEMOGLOBIN 9.6 g/dL (11.5-16.0); LYMPHOCYTES # (AUTO) 1.4 10^3/uL (1.0-4.0); LYMPHOCYTES % (AUTO) 18 % (12-44); MEAN CORPUSCULAR HEMOGLOBIN 30 pg (25-34); MEAN CORPUSCULAR HGB CONC 32 g/dL (32-36); MEAN CORPUSCULAR VOLUME 94 fL (80-99); MEAN PLATELET VOLUME 11.9 fL (9.0-12.2); MONOCYTES # (AUTO) 0.6 10^3/uL (0.0-1.0); MONOCYTES % (AUTO) 8 % (0-12); NEUTROPHILS # (AUTO) 5.4 10^3/uL (1.8-7.8); NEUTROPHILS % (AUTO) 67 % (42-75); PLATELET COUNT 250 10^3/uL (130-400)
[2021-06-10 06:13] LABS: POTASSIUM 4.7 MMOL/L (3.6-5.0)
[2021-06-10 06:14] LABS: CALCIUM 7.9 MG/DL (8.5-10.1)
[2021-06-10 06:18] LABS: CREATININE SERUM 2.47 MG/DL (0.60-1.30)
--- NOTE | 2021-06-10 07:25 | Progress Note - Surgery ---
FLACO JAMIL 06/10/21 0725: Subjective Date Seen by a Provider: Jun 10, 2021 Time Seen by a Provider: 07:01 Subjective/Events-last exam Pt reports that she is having right foot pain that she rates as a 10/10 when not taking any pain medication. States that the pain is well controlled when she gottlieb s take pain medication. Says that her right leg is more swollen and warm than her left. When asked she denied any other concerns besides a sore throat. Review of Systems General: No Chills, No Night Sweats HEENT: No Head Aches, No Visual Changes; Sore Throat Pulmonary: No Dyspnea, No Cough Cardiovascular: No: Chest Pain, Palpitations Gastrointestinal: No: Nausea, Vomiting, Abdominal Pain, Diarrhea, Constipation Genitourinary: No Dysuria, No Frequency Musculoskeletal: foot pain (rt); No: neck pain, back pain Neurological: No: Weakness, Numbness Focused Exam Lactate Level 06/07/21 17:04: Lactic Acid Level 0.83 Time of Focused Exam: 13:00 Objective Exam Vital Signs Date Time Temp Pulse Resp B/P (MAP) Pulse Ox O2 Delivery O2 Flow Rate FiO2 06/10/21 03:41 36.9 73 20 95/52 (66) 93 Room Air 06/09/21 23:25 36.0 72 18 101/62 (75) 98 Room Air 06/09/21 20:35 Room Air 06/09/21 20:00 35.8 65 18 98/60 (73) 100 Room Air 06/09/21 16:00 35.8 70 18 91/52 (65) 99 Room Air 06/09/21 13:35 36.4 73 16 111/66 (81) 94 Room Air 06/09/21 13:05 37 12 113/53 (73) 97 Room Air 06/09/21 13:04 Room Air 06/09/21 13:00 12 98/71 (80) 94 Room Air 06/09/21 12:55 Room Air 06/09/21 12:50 15 92/51 (65) 97 OxyMask 1 06/09/21 12:45 OxyMask 1 06/09/21 12:40 15 104/47 (66) 95 OxyMask 1 06/09/21 12:30 OxyMask 4 06/09/21 12:30 15 109/49 (69) 98 OxyMask 4 06/09/21 12:20 14 103/48 (66) 99 OxyMask 10 06/09/21 12:15 OxyMask 10 06/09/21 12:15 36.3 16 103/47 (65) 98 OxyMask 10 06/09/21 08:00 37.1 72 18 144/83 (103) 95 Room Air 06/09/21 08:00 Room Air I & O 06/10/21 07:00 Intake Total 320 ml Output Total 1200 ml Balance -880 ml Capillary Refill : Less Than 3 SecondsLess Than 3 Seconds General Appearance: No Apparent Distress, Obese HEENT: PERRL/EOMI; No Photophobia Neck: Normal Inspection, Supple, Tender Midline Respiratory: Lungs Clear, Normal Breath Sounds, No Respiratory Distress Cardiovascular: Regular Rate, Rhythm, No Murmur, Normal Peripheral Pulses Gastrointestinal: non tender, soft Extremity: Non Tender, Inflammation, Swelling (right leg swollen and warm to the touch) Neurologic/Psychiatric: Alert, Oriented x3, Normal Mood/Affect Skin: Other (Most of right foot covered by wound dressing. 1st 4 toes appear normal in appearance for pt. 5th toe is purple in color) Lymphatic: No Adenopathy (cervical ) Results Lab Laboratory Tests 06/09/21 11:16: Glucometer 98 06/09/21 14:31: Glucometer 125H 06/09/21 19:57: Glucometer 266H 06/10/21 05:43: Glucometer 274H 06/10/21 05:52: White Blood Count 8.0, Red Blood Count 3.17L, Hemoglobin 9.6L, Hematocrit 30L, Mean Corpuscular Volume 94, Mean Corpuscular Hemoglobin 30, Mean Corpuscular Hemoglobin Concent 32, Red Cell Distribution Width 14.0, Platelet Count 250, Mean Platelet Volume 11.9, Immature Granulocyte % (Auto) 0, Neutrophils (%) (Auto) 67, Lymphocytes (%) (Auto) 18, Monocytes (%) (Auto) 8, Eosinophils (%) (Auto) 6, Basophils (%) (Auto) 1, Neutrophils # (Auto) 5.4, Lymphocytes # (Auto) 1.4, Monocytes # (Auto) 0.6, Eosinophils # (Auto) 0.5H, Basophils # (Auto) 0.1, Immature Granulocyte # (Auto) 0.0, Sodium Level 130L, Potassium Level 4.7, Chloride Level 100, Carbon Dioxide Level 18L, Anion Gap 12, Blood Urea Nitrogen 30H, Creatinine 2.47H, Estimat Glomerular Filtration Rate 20, BUN/Creatinine Ratio 12, Glucose Level 297H, Calcium Level 7.9L Microbiology 06/08/21 MRSA Screen - Final, Complete 06/07/21 Gram Stain - Final, Resulted 06/07/21 Wound Culture - Preliminary, Resulted Mixed Bacterial Julieth Staphylococcus aureus 06/07/21 Blood Culture - Preliminary, Resulted No growth Assessment/Plan Assessment/Plan Assessment/Plan Assessment Abscess/cellulitis of right foot s/p I&D on 06/09 MRSA infection diabetes GERD Plan: Continue IV antibiotics for MRSA Continue pain management. Continue monitoring and maintenance of wound on right foot. Continue home medications. TR MURPHY DO 06/10/21 0911: Subjective Time Seen by a Provider: 09:01 Subjective/Events-last exam Pt seen and examined, states pain is controlled with meds but 10 out of 10 w ithout. She thinks her leg is swollen more than yesterday. Review of Systems General: No Chills, No Night Sweats Pulmonary: No Dyspnea, No Cough Cardiovascular: No: Chest Pain, Palpitations Gastrointestinal: No: Nausea, Vomiting, Abdominal Pain Musculoskeletal: leg pain, foot pain (rt) Objective Exam General Appearance: No Apparent Distress, Obese HEENT: PERRL/EOMI Respiratory: Lungs Clear, Normal Breath Sounds, No Accessory Muscle Use, No Respiratory Distress Cardiovascular: Regular Rate, Rhythm, No Murmur Gastrointestinal: non tender, soft Extremity: Inflammation, Swelling (right leg swollen and warm to the touch), Other (foot has more necrotic area on top, erythema has spread and 5th toe is more purplish) Assessment/Plan Assessment/Plan Assessment/Plan Necrotizing Fasciitis of right foot s/p I&D with debridement on 06/09 MRSA infection diabetes GERD Plan: Foot looks worse today and needs debridement again. Discussed this with pt and she understood. Risks and complications not limited to pain, bleeding, infection, scar, nerve damage and need for further procedure. If it doesn't get better I am afraid she could lose the toe and/or more. Continue IV antibiotics, Continue pain management. Supervisory-Addendum Brief Verification & Attestation Participated in pt care: history, MDM, physical Personally performed: exam, history, MDM, supervision of care Care discussed with: Medical Student Procedures: n/a Verification and Attestation of Medical Student E/M Service A medical student performed and documented this service. I then reviewed and verified all information documented by the medical student and made modifications to such information, when appropriate. I personally performed a physical exam, medical decision making and then discussed any differences between the notes and made revisions as necessary to create one note. Tr Murphy , 06/10/21 , 09:11 FLACO JAMIL Jun 10, 2021 07:25 TR MURPHY DO Jun 10, 2021 09:11
[2021-06-10] MEDS ORDERED: LACTATED RINGERS 1,000 ML IV PRN (09:15)
[2021-06-10] MEDS ORDERED: LIDOCAINE PF 2% 5 ML (XYLOCAINE) VIAL ONE (09:17)
[2021-06-10] MEDS ORDERED: SEVOFLURANE (ULTANE) 15 ML INHAL SOLN ONE ×2 (09:17→09:39)
[2021-06-10] MEDS ORDERED: MIDAZOLAM 2 MG/2 ML (VERSED) VIAL ONE (09:17)
[2021-06-10] MEDS ORDERED: fentaNYL INJ 100 MCG/2 ML AMP ONE (09:17)
[2021-06-10] MEDS ORDERED: proPOfol 200 MG/20 ML (DIPRIVAN) VIAL IV ONE (09:17)
[2021-06-10] MEDS ORDERED: ONDANSETRON 4 MG/2 ML (SDV) Z0FRAN ONE (09:17)
[2021-06-10] MEDS ORDERED: LIDOCAINE/EPI 1%-1:100,000 (XYLOCAINE) 20ML ONE (09:23)
[2021-06-10] MEDS: GABAPENTIN 400 MG (NEURONTIN) CAP PO SCH ×2 (09:24→21:34)
[2021-06-10] MEDS: SENNOSIDES 8.6 MG (SENOKOT) TAB PO SCH ×2 (09:24→20:45)
[2021-06-10] MEDS: DOCUSATE SODIUM 100 MG (COLACE) CAP PO SCH ×2 (09:24→20:44)
[2021-06-10] MEDS: LACTATED RINGERS 1,000 ML IV SCH ×3 (09:24→21:57)
[2021-06-10] MEDS: ENALAPRIL 2.5 MG (VASOTEC) TAB PO SCH (09:24)
[2021-06-10] MEDS: PANTOPRAZOLE 40 MG (PROTONIX) TAB PO SCH ×2 (09:24→20:45)
--- NOTE | 2021-06-10 10:07 | Anesthesia-General Post-Op ---
General Patient Condition Mental Status/LOC: Same as Preop Cardiovascular: Satisfactory Nausea/Vomiting: Absent Respiratory: Satisfactory Pain: Controlled Complications: Absent Post Op Complications Complications None Follow Up Care/Instructions Patient Instructions None needed. Anesthesia/Patient Condition Patient Condition Patient is doing well, no complaints, stable vital signs, no apparent adverse anesthesia problems. No complications reported per nursing. FERNANDA CHAVEZ CRNA Jun 10, 2021 10:07
[2021-06-10] MEDS ORDERED: fentaNYL INJ 100 MCG/2 ML AMP IVP ONE (10:15)
[2021-06-10] MEDS ORDERED: ONDANSETRON 4 MG/2 ML (SDV) Z0FRAN IVP PRN (10:15)
[2021-06-10] MEDS ORDERED: MEPERIDINE (DEMEROL) INJ 50 MG/ML IVP ONE (10:15)
[2021-06-10] MEDS ORDERED: morphine INJ 10 MG/ML 1ML (SYR OR VIAL) IVP ONE (10:15)
[2021-06-10] MEDS ORDERED: morphine INJ 10 MG/ML 1ML (SYR OR VIAL) ONE (10:25)
--- NOTE | 2021-06-10 10:43 | Progress Note-Post Operative ---
Post-Operative Progess Note Surgeon (s)/Face Burler (s) Surgeon SAVANA HEIN DO Face Burler: FRANCISCA Garcia Pre-Operative Diagnosis right foot necrotizing fasciitis Post-Operative Diagnosis same Procedure & Operative Findings Date of Procedure 06/10/21 Procedure Performed/Findings Debridement of necrotic tissue Anesthesia Type LMA Estimated Blood Loss Estimated blood loss (mL): less than 20ml Specimens/Packing Specimens Removed necrotic skin, subQ fat and fascia Packin SAVANA HEIN DO Jun 10, 2021 10:43
--- NOTE | 2021-06-10 14:29 | OPERATIVE REPORT ---
DATE OF SERVICE: 06/10/2021 PREOPERATIVE DIAGNOSIS: Right foot necrotizing fasciitis. POSTOPERATIVE DIAGNOSIS: Right foot necrotizing fasciitis. PROCEDURE: Debridement of necrotic tissue. SURGEON: Tr Murphy DO BROTHEL KEEPER: Todd Link MS3 ANESTHESIA: LMA. BLOOD LOSS: Less than 20 mL. SPECIMEN: Necrotic skin, subcutaneous fat and fascia. FLUIDS: Per anesthesia. POSTOPERATIVE CONDITION: Stable. INDICATION FOR PROCEDURE: The patient is a 65-year-old female who had what looked like necrotizing fasciitis. When seen today, it was actually worse, needed to go to the OR for debridement. FINDINGS: The patient had necrotic skin, subcutaneous fat and fascia under the fifth toe all removed. PROCEDURE NOTE: After informed consent was obtained, the patient was brought to the operating room, placed on the table in supine position. She was sterilely prepped and draped in normal fashion. She had necrotic tissue over the top of her foot as well as a lot of erythema, some swelling, started cutting off the necrotic tissue. It measured about 4 cm long x about 3 cm wide. It was more of almost a triangular type portion of tissue on the top of the foot had to extend, this was cut off and passed off table, had to extend the incision along the lateral aspect of the foot up towards the lateral malleolus trying to make sure there is no more necrotic tissue, the bottom of the fifth toe was . This was removed, it was approximately 1 cm x 1 cm portion of skin and subcutaneous fat and then had to debride a little bit less than 1 cm of fascia below the toe with all this was done with Bovie electrocautery. I also extended the incision between the fourth and fifth digit and then down to the plantar aspect of the foot a little bit to open this up. There is some more purulent fluid around the toe and around the plantar aspect of the foot, this was copiously irrigated with normal saline. Hemostasis was obtained with Bovie electrocautery as well as there was one vein cords lateral malleolus that we tied off, then elected to place some Kerlix soaked in Betadine. Plan is to talk to the patient, I believe we will have to take off her toe tomorrow. The rest of the foot was wrapped in Kerlix and then gently with Coban. She tolerated the procedure. Sponge, instrument and needle count correct at the end of the case. Job ID: [id number] DocumentID: [id number] Dictated Date: 06/10/2021 10:43:38 Smash Hand Date: 06/10/2021 14:28:17 Dictated By: TR MURPHY DO
[2021-06-10] MEDS ORDERED: TROUGH ORDER-PHARMACY XX ONE (17:00)
[2021-06-10] MEDS ORDERED: PERMETHRIN (NIX) 1% LOTION 60 ML BTL TOP NR (17:30)
[2021-06-10] MEDS: VANCOMYCIN 1 GM/NS 250 ML IVPB IV SCH ×2 (19:10)
[2021-06-11] VITALS (11 sets, daily range): BP systolic 92–116; BP diastolic 48–65
[2021-06-11] MEDS: CATHETER FLUSH 10 ML SYR IV SCH ×3 (05:10→22:18)
[2021-06-11] MEDS: inSUlin ASPART (NovoLOG) 1 UNIT/0.01 ML (CHARGE PER UNIT) SC SCH ×7 (05:28→21:07)
[2021-06-11] MEDS: PIPERACILLIN/TAZOBACTAM (BULK) 4.5 GM in NS (IVPB) 100 ML IV SCH ×3 (05:28→22:18)
[2021-06-11] MEDS: ACETAMINOPHEN 325 MG TABLET PO PRN (05:31)
[2021-06-11 06:07] LABS: BASOPHILS # (AUTO) 0.1 10^3/uL (0.0-0.1); BASOPHILS % (AUTO) 1 % (0-10); EOSINOPHILS # (AUTO) 0.6 10^3/uL (0.0-0.3); EOSINOPHILS % (AUTO) 8 % (0-10); HEMATOCRIT 27 % (35-52); HEMOGLOBIN 8.5 g/dL (11.5-16.0); LYMPHOCYTES # (AUTO) 1.9 10^3/uL (1.0-4.0); LYMPHOCYTES % (AUTO) 25 % (12-44); MEAN CORPUSCULAR HEMOGLOBIN 30 pg (25-34); MEAN CORPUSCULAR HGB CONC 32 g/dL (32-36); MEAN CORPUSCULAR VOLUME 94 fL (80-99); MEAN PLATELET VOLUME 11.9 fL (9.0-12.2); MONOCYTES # (AUTO) 0.6 10^3/uL (0.0-1.0); MONOCYTES % (AUTO) 8 % (0-12); NEUTROPHILS # (AUTO) 4.4 10^3/uL (1.8-7.8); NEUTROPHILS % (AUTO) 58 % (42-75); PLATELET COUNT 251 10^3/uL (130-400); WHITE BLOOD COUNT 7.6 10^3/uL (4.3-11.0)
[2021-06-11 06:15] LABS: POTASSIUM 4.9 MMOL/L (3.6-5.0)
[2021-06-11 06:16] LABS: CALCIUM 7.4 MG/DL (8.5-10.1)
[2021-06-11 06:21] LABS: CREATININE SERUM 2.8 MG/DL (0.60-1.30)
--- NOTE | 2021-06-11 08:07 | Progress Note - Hospitalist ---
Subjective HPI/CC On Admission Date Seen by Provider: Jun 10, 2021 Time Seen by Provider: 18:30 Chantale Salguero is a 65 year old female with PMH HTN, HLD, T2DM on insulin, CKD4, GERD, obesity, who presented with a right foot wound. She stepped on some nails recently. She has a rash on her foot. It is swollen. She has some pain in her foot. She denies fevers. She denies nausea and vomiting. She denies chest pain and shortness of breath. She has never had a cellulitis before. Subjective/Events-last exam She is doing well. She is still having foot pain. She says she is having her toe amputated tomorrow. Focused Exam Time of Focused Exam: 13:00 Objective Exam Vital Signs Vital Signs Date Time Temp Pulse Resp B/P (MAP) Pulse Ox O2 Delivery O2 Flow Rate FiO2 06/11/21 07:24 37.8 68 22 92/52 (65) 93 Nasal Cannula 1.00 Capillary Refill : Less Than 3 SecondsLess Than 3 Seconds General Appearance: No Apparent Distress, Obese Respiratory: Lungs Clear, Normal Breath Sounds, No Respiratory Distress Cardiovascular: Regular Rate, Rhythm, No Edema, No Murmur Gastrointestinal: Normal Bowel Sounds, Non Tender, Soft Extremity: Inflammation, Swelling, Other (right foot bandage in place) Neurologic/Psychiatric: Alert, Oriented x3, Normal Mood/Affect Results/Procedures Lab Laboratory Tests 06/11/21 06:00 Patient resulted labs reviewed. Imaging: Reviewed Imaging Report Assessment/Plan Assessment and Plan Assess & Plan/Chief Complaint Necrotizing fasciitis Received tetanus vaccine in ER Continue Vanc and Zosyn for diabetic foot wound Wound culture with presumed MRSA, final pending Wound care following Surgery following Repeated I&D today T2DM Levemir Novolog Sliding scale Gabapentin BETSY on CKD4 Cr appears to be at baseline Monitor HTN GERD Continue home meds Obesity Clinically significant, no acute management needs DVT prophylaxis: held for procedure Diagnosis/Problems Diagnosis/Problems (1) Necrotizing fasciitis of ankle and foot Status: Acute (2) Cellulitis Status: Acute Qualifiers: Site of cellulitis of extremity: lower extremity Laterality: right Site of cellulitis: extremity Qualified Codes: L03.115 - Cellulitis of right lower limb (3) Abscess Status: Acute (4) T2DM (type 2 diabetes mellitus) Status: Chronic Qualifiers: Diabetes mellitus terminologist insulin use: with [facility] use Diabetes mellitus complication status: with skin complications Diabetes mellitus complication detail: with other skin complication Qualified Codes: E11.628 - Type 2 diabetes mellitus with other skin complications; Z79.4 - intermediate frame tender (current) use of insulin NERY TOHMAS MD Jun 11, 2021 08:07
--- NOTE | 2021-06-11 08:55 | Progress Note - Surgery ---
FLACO JAMIL 06/11/21 0855: Subjective Date Seen by a Provider: Jun 11, 2021 Time Seen by a Provider: 07:46 Subjective/Events-last exam Pt reports that her foot pain is being well managed by current pain medications. States that she has been NPO since last night. Says that she was able to sleep well last night. When asked she denied having any other concerns. Review of Systems General: No Chills, No Night Sweats HEENT: No Head Aches, No Visual Changes Pulmonary: No Dyspnea, No Cough Cardiovascular: No: Chest Pain, Palpitations Gastrointestinal: No: Nausea, Vomiting, Abdominal Pain Genitourinary: No Dysuria, No Frequency Musculoskeletal: foot pain (rt foot); No: neck pain, shoulder pain, back pain Neurological: No: Weakness, Numbness Focused Exam Time of Focused Exam: 13:00 Objective Exam Vital Signs Date Time Temp Pulse Resp B/P (MAP) Pulse Ox O2 Delivery O2 Flow Rate FiO2 06/11/21 07:24 37.8 68 22 92/52 (65) 93 Nasal Cannula 1.00 06/11/21 06:01 37.1 06/11/21 05:31 38.0 06/11/21 04:59 38.0 74 20 95/56 (69) 93 Nasal Cannula 1.00 06/10/21 23:26 37.1 89 20 119/67 (84) 100 Nasal Cannula 1.00 06/10/21 20:59 Nasal Cannula 1.00 06/10/21 19:35 37.0 70 18 95/57 (70) 98 Nasal Cannula 1.00 06/10/21 16:00 36.9 70 20 98/58 (71) 98 Nasal Cannula 1.00 06/10/21 11:09 37.1 67 20 95/60 (72) 98 Room Air 06/10/21 10:55 Room Air 06/10/21 10:50 36.5 16 92/47 (62) 94 Room Air 06/10/21 10:40 Nasal Cannula 1 06/10/21 10:40 16 93/45 (61) 96 Nasal Cannula 1 06/10/21 10:30 14 89/47 (61) 95 Nasal Cannula 2 06/10/21 10:20 14 86/54 (65) 98 OxyMask 2 06/10/21 10:20 OxyMask 4 06/10/21 10:10 16 84/41 (55) 97 OxyMask 4 06/10/21 10:05 OxyMask 6 06/10/21 10:05 36.7 16 87/43 (58) 97 OxyMask 6 06/10/21 08:50 36.8 68 18 97/55 (69) 98 Room Air I & O 06/11/21 07:00 Intake Total 3040 ml Output Total 200 ml Balance 2840 ml Capillary Refill : Less Than 3 SecondsLess Than 3 Seconds General Appearance: No Apparent Distress, Obese HEENT: PERRL/EOMI; No Photophobia Neck: Non Tender, Supple, Tender Midline Respiratory: Lungs Clear, Normal Breath Sounds, No Respiratory Distress Cardiovascular: Regular Rate, Rhythm, No Murmur, Normal Peripheral Pulses Gastrointestinal: non tender, soft Extremity: Calf Tenderness (rt calf), Swelling (rt calf is swollen and warm to touch ), Other (right foot bandage in place) Neurologic/Psychiatric: Alert, Oriented x3, Normal Mood/Affect Skin: Normal Color, Other (Most of right foot covered by wound dressing. 1st 4 toes appear normal in appearance for pt. Unable to see 5th toe due to wound dressing) Lymphatic: No Adenopathy (cervical ) Results Lab Laboratory Tests 06/10/21 12:19: Glucometer 205H 06/10/21 14:38: Glucometer 200H 06/10/21 17:12: Vancomycin Level Trough 15.0 06/10/21 19:39: Glucometer 120H 06/11/21 05:23: Glucometer 325H 06/11/21 06:00: White Blood Count 7.6, Red Blood Count 2.83L, Hemoglobin 8.5L, Hematocrit 27L, Mean Corpuscular Volume 94, Mean Corpuscular Hemoglobin 30, Mean Corpuscular Hemoglobin Concent 32, Red Cell Distribution Width 14.3, Platelet Count 251, Mean Platelet Volume 11.9, Immature Granulocyte % (Auto) 0, Neutrophils (%) (Auto) 58, Lymphocytes (%) (Auto) 25, Monocytes (%) (Auto) 8, Eosinophils (%) (Auto) 8, Basophils (%) (Auto) 1, Neutrophils # (Auto) 4.4, Lymphocytes # (Auto) 1.9, Monocytes # (Auto) 0.6, Eosinophils # (Auto) 0.6H, Basophils # (Auto) 0.1, Immature Granulocyte # (Auto) 0.0, Sodium Level 127L, Potassium Level 4.9, Chloride Level 100, Carbon Dioxide Level 16L, Anion Gap 11, Blood Urea Nitrogen 35H, Creatinine 2.80H, Estimat Glomerular Filtration Rate 17, BUN/Creatinine Ratio 13, Glucose Level 322H, Calcium Level 7.4L 06/11/21 07:28: Glucometer 274H Microbiology 06/09/21 Gram Stain - Final, Resulted 06/09/21 Anaerobic Culture, Resulted Pending 06/09/21 Surgical Culture - Preliminary, Resulted Staphylococcus aureus 06/08/21 MRSA Screen - Final, Complete 06/07/21 Blood Culture - Preliminary, Resulted No growth Assessment/Plan Assessment/Plan Assessment/Plan Necrotizing Fasciitis of right foot s/p I&D with debridement on 06/09 and 06/10 MRSA infection diabetes GERD Head lice Plan: Continue NPO diet for today due to possible need of another debridement and 5th toe amputation today. Continue IV antibiotics, abscess culture of right foot from 06/09 was positive for MRSA. Continue pain management. Continue head lice treatment TR MURPHY DO 06/11/21 1119: Subjective Time Seen by a Provider: 11:03 Subjective/Events-last exam Pt seen and examined. We talked about amputation of toe and she said, "oh, I know....I knew that toe was no good". Pain is minimal, well controlled with meds. Review of Systems HEENT: No Head Aches, No Visual Changes Pulmonary: No Dyspnea, No Cough Cardiovascular: No: Chest Pain, Palpitations Gastrointestinal: No: Nausea, Vomiting, Abdominal Pain Musculoskeletal: foot pain (rt foot) Objective Exam General Appearance: No Apparent Distress, Obese Respiratory: Lungs Clear, Normal Breath Sounds, No Accessory Muscle Use, No Respiratory Distress Cardiovascular: Regular Rate, Rhythm, No Murmur Gastrointestinal: non tender, soft Extremity: Calf Tenderness (rt calf, no redness), Swelling (rt calf is swollen and warm to touch ), Other (right foot bandage in place) Assessment/Plan Assessment/Plan Assessment/Plan Necrotizing Fasciitis of right foot s/p I&D with debridement on 06/09 and 06/10 Necrotic 5th digit right foot - plan amputation today MRSA infection diabetes GERD Head lice Plan: Pt NPO for 5th toe amputation and debridement of any necrotic tissue today. Consent ordered and discussed procedure with pt, all questions answered to her satisfaction. She asked about when we would stop doing surgery and I told her as soon as there was no more tissue. Continue IV antibiotics, abscess culture of right foot from 06/09 was positive for MRSA. Continue head lice treatment Supervisory-Addendum Brief Verification & Attestation Participated in pt care: history, MDM, physical Personally performed: exam, history, MDM, supervision of care Care discussed with: Medical Student Procedures: n/a Verification and Attestation of Medical Student E/M Service A medical student performed and documented this service. I then reviewed and verified all information documented by the medical student and made modifications to such information, when appropriate. I personally performed a physical exam, medical decision making and then discussed any differences between the notes and made revisions as necessary to create one note. Tr Murphy , 06/11/21 , 11:19 FLACO JAMIL Jun 11, 2021 08:55 TR MURPHY DO Jun 11, 2021 11:19
[2021-06-11] MEDS: DOCUSATE SODIUM 100 MG (COLACE) CAP PO SCH ×2 (09:04→22:17)
[2021-06-11] MEDS: ENALAPRIL 2.5 MG (VASOTEC) TAB PO SCH (09:04)
[2021-06-11] MEDS: GABAPENTIN 400 MG (NEURONTIN) CAP PO SCH ×2 (09:04→22:17)
[2021-06-11] MEDS: PANTOPRAZOLE 40 MG (PROTONIX) TAB PO SCH ×2 (09:05→22:17)
[2021-06-11] MEDS: SENNOSIDES 8.6 MG (SENOKOT) TAB PO SCH ×2 (09:05→22:17)
[2021-06-11] MEDS: LACTATED RINGERS 1,000 ML IV SCH (09:55)
[2021-06-11] MEDS ORDERED: fentaNYL INJ 100 MCG/2 ML AMP ONE (11:00)
[2021-06-11] MEDS ORDERED: MIDAZOLAM 2 MG/2 ML (VERSED) VIAL ONE (11:00)
[2021-06-11] MEDS ORDERED: LIDOCAINE PF 2% 5 ML (XYLOCAINE) VIAL ONE (11:00)
[2021-06-11] MEDS ORDERED: SEVOFLURANE (ULTANE) 15 ML INHAL SOLN ONE ×2 (11:00→11:54)
[2021-06-11] MEDS ORDERED: ONDANSETRON 4 MG/2 ML (SDV) Z0FRAN ONE (11:00)
[2021-06-11] MEDS ORDERED: proPOfol 200 MG/20 ML (DIPRIVAN) VIAL IV ONE (11:00)
[2021-06-11] MEDS ORDERED: LACTATED RINGERS 1,000 ML IV PRN (11:30)
--- NOTE | 2021-06-11 12:01 | Progress Note-Post Operative ---
Post-Operative Progess Note Surgeon (s)/Preform Machine Operator (s) Surgeon SAVANA HEIN DO Preform Machine Operator: FRANCISCA Garcia Pre-Operative Diagnosis right foot necrotizing fasciitis Post-Operative Diagnosis same Procedure & Operative Findings Date of Procedure 06/11/21 Procedure Performed/Findings 1) Right 5th toe amputation at IP-Metacarpal joint 2) Debridement necrotic muscle, skin and fascia Anesthesia Type LMA Estimated Blood Loss Estimated blood loss (mL): scant Specimens/Packing Specimens Removed right 5th toe necrotic muscle, fascia, skin and subQ fat Packin SAVANA HEIN DO Jun 11, 2021 12:01
--- NOTE | 2021-06-11 12:35 | Anesthesia-General Post-Op ---
General Patient Condition Mental Status/LOC: Same as Preop Cardiovascular: Satisfactory Nausea/Vomiting: Absent Respiratory: Satisfactory Pain: Controlled Complications: Absent Post Op Complications Complications None Follow Up Care/Instructions Patient Instructions None needed. Anesthesia/Patient Condition Patient Condition Patient was seen this morning prior to her 5th Toe amputation and she was doing well after yesterday's procedure, no complaints, stable vital signs, no apparent adverse anesthesia problems. JACINDA CHRISTY DO Jun 11, 2021 12:35
--- NOTE | 2021-06-11 16:49 | Progress Note - Hospitalist ---
Subjective HPI/CC On Admission Date Seen by Provider: Jun 11, 2021 Time Seen by Provider: 10:55 Chantale Salguero is a 65 year old female with PMH HTN, HLD, T2DM on insulin, CKD4, GERD, obesity, who presented with a right foot wound. She stepped on some nails recently. She has a rash on her foot. It is swollen. She has some pain in her foot. She denies fevers. She denies nausea and vomiting. She denies chest pain and shortness of breath. She has never had a cellulitis before. Subjective/Events-last exam She is in good spirits today. She is going back to surgery for a toe amputation. She has no complaints or concerns. Focused Exam Time of Focused Exam: 13:00 Objective Exam Vital Signs Vital Signs Date Time Temp Pulse Resp B/P (MAP) Pulse Ox O2 Delivery O2 Flow Rate FiO2 06/11/21 15:28 Nasal Cannula 2.50 06/11/21 12:45 36.2 18 116/65 (82) 95 06/11/21 12:39 69 Capillary Refill : Less Than 3 SecondsLess Than 3 Seconds General Appearance: No Apparent Distress, WD/WN Respiratory: Lungs Clear, Normal Breath Sounds, No Respiratory Distress Cardiovascular: Regular Rate, Rhythm, No Edema, No Murmur Gastrointestinal: Normal Bowel Sounds, Non Tender, Soft Extremity: Inflammation, Swelling Neurologic/Psychiatric: Alert, Oriented x3, Normal Mood/Affect Skin: Erythema (right 5th toe, bandage in place around foot and ankle) Results/Procedures Lab Laboratory Tests 06/11/21 06:00 Patient resulted labs reviewed. Imaging: Reviewed Imaging Report Assessment/Plan Assessment and Plan Assess & Plan/Chief Complaint Necrotizing fasciitis Cellulitis Received tetanus vaccine in ER Continue Vanc and Zosyn for diabetic foot wound Wound culture with MRSA Wound care following Surgery following Planning for right 5th toe amputation and debridement today T2DM Increase Levemir Increase Novolog with meals Increase sliding scale Gabapentin BETSY on CKD4 Cr slightly above baseline IV fluids Monitor HTN GERD Continue home meds Obesity Clinically significant, no acute management needs DVT prophylaxis: held for procedure Diagnosis/Problems Diagnosis/Problems (1) Necrotizing fasciitis of ankle and foot Status: Acute (2) Cellulitis Status: Acute Qualifiers: Site of cellulitis of extremity: lower extremity Laterality: right Site of cellulitis: extremity Qualified Codes: L03.115 - Cellulitis of right lower limb (3) Abscess Status: Acute (4) T2DM (type 2 diabetes mellitus) Status: Chronic Qualifiers: Diabetes mellitus oysterman insulin use: with oysterman use Diabetes mellitus complication status: with skin complications Diabetes mellitus complication detail: with other skin complication Qualified Codes: E11.628 - Type 2 diabetes mellitus with other skin complications; Z79.4 - FPC (current) use of insulin (5) Acute kidney injury superimposed on chronic kidney disease Status: Acute NERY THOMAS MD Jun 11, 2021 16:49
--- NOTE | 2021-06-11 17:10 | OPERATIVE REPORT ---
DATE OF SERVICE: 06/11/2021 PREOPERATIVE DIAGNOSIS: Right foot necrotizing fasciitis. POSTOPERATIVE DIAGNOSIS: Right foot necrotizing fasciitis. PROCEDURES PERFORMED: 1. Right fifth toe amputation at the IP metacarpal joint. 2. Debridement of necrotic muscle, skin, and fascia. SURGEON: Tr Murphy DO. SANDBLASTER SUPERVISOR: Todd Link MS3. ANESTHESIA: LMA. SPECIMEN: Right fifth toe as well as necrotic muscle, fascia, skin, and subcutaneous fat. BLOOD LOSS: Less than 5 mL. FLUIDS: Per anesthesia. POSTOPERATIVE CONDITION: Stable. INDICATION FOR PROCEDURE: The patient is a 65-year-old female, who has necrotizing fasciitis and had it starting to affect the fifth toe, taken off the bottom portion, there was necrotic fascia. This will need to be removed to be able to allow this to heal. FINDINGS: The patient had some necrotic muscle with the fascia and skin removed as well as removing the fifth toe. PROCEDURE NOTE: After informed consent was obtained, the patient was brought to the operating room and placed on the operating table in supine position. She was sterilely prepped and draped in normal fashion. I started by first taking off the fifth toe doing an amputation, cutting around the toe. The skin had been removed from the underside, went down around the lateral aspect, and then down through the ligaments, down to the IP metacarpal joint using the Bovie electrocautery to cut this off. This was cut off, passed off table. There was some necrotic skin. This was cut off, it was a triangular shape about a centimeter x a centimeter. There was some necrotic muscle underneath this about 4 cm long x about 2 cm wide. This was cut off with the Bovie electrocautery as well as some extra fascia and more subcutaneous fat down by the toe. It actually looked like there is less erythema, less edema in the foot. I did not see any obvious black when we cut off the distal portion of the toe and remaining skin. There was some bleeding. This was a good sign and we cut back to some bleeding on the skin edges, then controlled this with a Bovie electrocautery. Copiously irrigated with normal saline and then placed a Kerlix soaked in Betadine on this open area and then wrapped this with another Kerlix and then lightly with Coban. Sponge, instrument, and needle count correct at the end of the case. Job ID: [id number] DocumentID: [id number] Dictated Date: 06/11/2021 12:00:59 Lye Bath Operator Date: 06/11/2021 17:09:35 Dictated By: DO LAURIE KELLEY
[2021-06-12 00:19] VITALS: BP 100/61
[2021-06-12 04:00] VITALS: BP 113/63
[2021-06-12] MEDS: CATHETER FLUSH 10 ML SYR IV SCH ×3 (05:17→21:26)
[2021-06-12] MEDS: VANCOMYCIN 1 GM/NS 250 ML IVPB IV SCH ×2 (05:19)
[2021-06-12 06:21] LABS: BASOPHILS # (AUTO) 0.1 10^3/uL (0.0-0.1); BASOPHILS % (AUTO) 1 % (0-10); EOSINOPHILS # (AUTO) 0.6 10^3/uL (0.0-0.3); EOSINOPHILS % (AUTO) 8 % (0-10); HEMATOCRIT 28 % (35-52); HEMOGLOBIN 8.9 g/dL (11.5-16.0); LYMPHOCYTES # (AUTO) 1.3 10^3/uL (1.0-4.0); LYMPHOCYTES % (AUTO) 20 % (12-44); MEAN CORPUSCULAR HEMOGLOBIN 30 pg (25-34); MEAN CORPUSCULAR HGB CONC 32 g/dL (32-36); MEAN CORPUSCULAR VOLUME 95 fL (80-99); MEAN PLATELET VOLUME 11.4 fL (9.0-12.2); MONOCYTES # (AUTO) 0.4 10^3/uL (0.0-1.0); MONOCYTES % (AUTO) 6 % (0-12); NEUTROPHILS # (AUTO) 4.4 10^3/uL (1.8-7.8); NEUTROPHILS % (AUTO) 65 % (42-75); PLATELET COUNT 290 10^3/uL (130-400); WHITE BLOOD COUNT 6.8 10^3/uL (4.3-11.0)
[2021-06-12 06:30] LABS: POTASSIUM 4.9 MMOL/L (3.6-5.0)
[2021-06-12 06:35] LABS: CREATININE SERUM 2.35 MG/DL (0.60-1.30)
[2021-06-12] MEDS: inSUlin ASPART (NovoLOG) 1 UNIT/0.01 ML (CHARGE PER UNIT) SC SCH ×7 (06:37→20:10)
[2021-06-12] MEDS: PIPERACILLIN/TAZOBACTAM (BULK) 4.5 GM in NS (IVPB) 100 ML IV SCH ×2 (06:57→14:54)
--- NOTE | 2021-06-12 07:45 | Progress Note - Surgery ---
LUCY MEJIA 06/12/21 0745: Subjective Date Seen by a Provider: Jun 12, 2021 Time Seen by a Provider: 07:37 Subjective/Events-last exam Today when I visited the pt she was resting comfortably in bed and talking to her daughter on the phone. She is SPO 1 day 5th phalangial amputation with multiple previous debridement of tissue on the dorsum and lateral side of her RT foot. She states that she is not feeling any pain from her foot as long as she does not disturb the wounds site. She does confirm pain when palpating the distal 1/3 of her lower leg. The wound site looks clean and free of purulent or necrotic tissue with fresh pink margins. She is hopefully that further debridement will not be needed and reports no new issues or concerns overnight. Review of Systems General: No Chills, No Night Sweats, No Fatigue, No Malaise; Appetite HEENT: No Head Aches, No Visual Changes, No Eye Pain, No Dysphasia, No Sore Throat Pulmonary: No Dyspnea, No Cough, No Pleuritic Chest Pain Cardiovascular: No: Chest Pain, Palpitations, Edema, Lt Headedness Gastrointestinal: No: Nausea, Vomiting, Abdominal Pain, Diarrhea, Constipation, Melena, Hematochezia Genitourinary: No Dysuria, No Frequency, No Incontinence, No Hematuria, No Retention Musculoskeletal: leg pain, foot pain; No: neck pain, shoulder pain, back pain, hand pain Neurological: No: Weakness, Numbness, Confusion, Seizures Focused Exam Time of Focused Exam: 13:00 Objective Exam Vital Signs Date Time Temp Pulse Resp B/P (MAP) Pulse Ox O2 Delivery O2 Flow Rate FiO2 06/12/21 04:00 36.9 78 18 113/63 (80) 97 Room Air 06/12/21 00:19 36.4 70 18 100/61 (74) 98 Room Air 06/11/21 20:30 37.5 68 20 107/61 (76) 98 Room Air 06/11/21 20:00 Room Air 06/11/21 16:45 37.4 66 20 112/65 (81) 100 Nasal Cannula 2.50 06/11/21 15:28 Nasal Cannula 2.50 06/11/21 12:45 Nasal Cannula 2 06/11/21 12:45 36.2 18 116/65 (82) 95 Nasal Cannula 2 06/11/21 12:40 18 114/58 (76) 95 Nasal Cannula 2 06/11/21 12:39 36.6 69 22 113/63 (80) 92 Nasal Cannula 3.00 06/11/21 12:30 Nasal Cannula 2 06/11/21 12:30 18 111/53 (72) 96 Nasal Cannula 2 06/11/21 12:20 18 108/49 (68) 95 OxyMask 3 06/11/21 12:15 OxyMask 6 06/11/21 12:10 18 108/50 (69) 96 OxyMask 6 06/11/21 12:03 OxyMask 6 06/11/21 12:03 36.4 12 100/48 (65) 94 OxyMask 6 06/11/21 08:00 Nasal Cannula 1.00 I & O 06/12/21 07:00 Intake Total 1160 ml Output Total 1800 ml Balance -640 ml Capillary Refill : Less Than 3 SecondsLess Than 3 Seconds General Appearance: No Apparent Distress, WD/WN HEENT: PERRL/EOMI, Pharynx Normal Neck: Full Range of Motion, Non Tender, Supple Respiratory: Chest Non Tender, Lungs Clear, No Accessory Muscle Use, No Respiratory Distress, Wheezing Cardiovascular: Regular Rate, Rhythm, No Edema, No Gallop, No Murmur, Normal Peripheral Pulses Peripheral Pulses: 2+ Radial Pulses (R), 2+ Radial Pulses (L) Gastrointestinal: normal bowel sounds, non tender, soft, no organomegaly, no pulsatile mass Extremity: Normal Capillary Refill, Normal Range of Motion, Inflammation (RT dorsum of foot is warm and errythemitous), Swelling (Rt foot remains swollen), Other (pain to touch at distal 1/3 of lower leg, no tissue or texture changes evident) Neurologic/Psychiatric: Alert, Oriented x3, Normal Mood/Affect, enrollment management vice president II-XII Norm as Tested Skin: Normal Color, Warm/Dry, Erythema (RT foot) Lymphatic: No Adenopathy (cervical and axillary) Results Lab Laboratory Tests 06/11/21 09:49: Glucometer 255H 06/11/21 14:56: Glucometer 190H 06/11/21 21:00: Glucometer 164H 06/12/21 06:00: White Blood Count 6.8, Red Blood Count 2.96L, Hemoglobin 8.9L, Hematocrit 28L, Mean Corpuscular Volume 95, Mean Corpuscular Hemoglobin 30, Mean Corpuscular Hemoglobin Concent 32, Red Cell Distribution Width 14.5, Platelet Count 290, Mean Platelet Volume 11.4, Immature Granulocyte % (Auto) 0, Neutrophils (%) (Auto) 65, Lymphocytes (%) (Auto) 20, Monocytes (%) (Auto) 6, Eosinophils (%) (Auto) 8, Basophils (%) (Auto) 1, Neutrophils # (Auto) 4.4, Lymphocytes # (Auto) 1.3, Monocytes # (Auto) 0.4, Eosinophils # (Auto) 0.6H, Basophils # (Auto) 0.1, Immature Granulocyte # (Auto) 0.0 06/12/21 06:10: Sodium Level 136, Potassium Level 4.9, Chloride Level 106, Carbon Dioxide Level 19L, Anion Gap 11, Blood Urea Nitrogen 32H, Creatinine 2.35H, Estimat Glomerular Filtration Rate 21, BUN/Creatinine Ratio 14, Glucose Level 167H, Calcium Level 8.0L Microbiology 06/09/21 Gram Stain - Final, Resulted 06/09/21 Anaerobic Culture - Preliminary, Resulted No anaerobes isolated 06/09/21 Surgical Culture - Preliminary, Resulted Staphylococcus aureus 06/08/21 MRSA Screen - Final, Complete 06/07/21 Blood Culture - Preliminary, Resulted No growth Assessment/Plan Assessment/Plan Assessment/Plan Necrotizing Fasciitis of right foot - s/p I&D with debridement on 06/09 and 06/10 Necrotic 5th digit right foot - amputation 06/11 MRSA infection diabetes GERD Head lice CKD 4 Plan: Rest and dressing changes to RT foot and monitor tissue status surrounding the surgical site. Continue IV antibiotics, abscess culture of right foot from 06/09 was positive for MRSA. Continue head lice treatment Medicine also following SORIN YOU DO 06/12/21 1337: Subjective Subjective/Events-last exam Patient stating some pain in the right calf area. Slightly swollen compared to the left. Patient otherwise has no other complaints. Denies any nausea vomiting fever sweats chills shortness of breath or chest pain. Objective Exam General Appearance: No Apparent Distress, WD/WN HEENT: PERRL/EOMI Neck: Non Tender, Supple Respiratory: Chest Non Tender, No Accessory Muscle Use, No Respiratory Distress Cardiovascular: Regular Rate, Rhythm, No JVD Gastrointestinal: non tender, soft Extremity: Inflammation (RT dorsum of foot is warm and erythema), Swelling (Rt foot remains swollen), Other (pain to touch at distal 1/3 of lower leg, no tissue or texture changes evident) Assessment/Plan Assessment/Plan Assessment/Plan Necrotizing Fasciitis of right foot - s/p I&D with debridement on 06/09 and 06/10 Necrotic 5th digit right foot - amputation 06/11 MRSA infection diabetes GERD Head lice CKD 4 Plan: Rest and dressing changes to RT foot and monitor tissue status surrounding the surgical site. Continue IV antibiotics, abscess culture of right foot from 06/09 was positive for MRSA. Continue head lice treatment U/s to r/o dvt Medicine also following Supervisory-Addendum Brief Verification & Attestation Participated in pt care: history, MDM, physical Personally performed: exam, history, MDM, supervision of care Care discussed with: Medical Student Procedures: n/a Results interpretation: Verified all documentation Verification and Attestation of Medical Student E/M Service A medical student performed and documented this service in my presence. I reviewed and verified all information documented by the medical student and made modifications to such information, when appropriate. I personally performed the physical exam and medical decision making. Sorin You, Jun 12, 2021,13:37 LUCY MEJIA Jun 12, 2021 07:45 SORIN YOU DO Jun 12, 2021 13:37
[2021-06-12 08:14] VITALS: BP 125/69
[2021-06-12] MEDS: LACTATED RINGERS 1,000 ML IV SCH ×3 (10:00→18:17)
[2021-06-12 11:21] VITALS: BP 124/70
[2021-06-12] MEDS: GABAPENTIN 400 MG (NEURONTIN) CAP PO SCH ×2 (12:37→21:26)
[2021-06-12] MEDS: ENALAPRIL 2.5 MG (VASOTEC) TAB PO SCH (12:37)
[2021-06-12] MEDS: PANTOPRAZOLE 40 MG (PROTONIX) TAB PO SCH ×2 (12:37→21:26)
[2021-06-12] MEDS: SENNOSIDES 8.6 MG (SENOKOT) TAB PO SCH ×2 (12:37→21:26)
[2021-06-12] MEDS: DOCUSATE SODIUM 100 MG (COLACE) CAP PO SCH ×2 (12:37→21:26)
[2021-06-12] MEDS: DAKIN'S 1/2 STRENGTH (0.25%) 473 ML BTL TOP SCH (12:38)
--- NOTE | 2021-06-12 14:00 | Diagnostic Imaging Report ---
Procedure: US right lower extremity venous. Technique: Multiple real-time grayscale images were obtained over the right lower extremity in various projections. Additional spectral analysis and color Doppler duplex images were also obtained. Date: June 12, 2021. Indication: 65-year-old female, right leg pain. Comparison: None. Findings: The right common femoral vein, right superficial femoral vein, and right popliteal vein are compressible with normal blood flow and response to augmentation. The right peroneal and posterior tibial veins are patent. The visualized portions of the right greater saphenous vein and deep femoral vein are patent. Impression: 1. Negative for right lower extremity deep venous thrombosis. Dictated by: Dictated on workstation # [id number]
--- NOTE | 2021-06-12 14:35 | Progress Note - Hospitalist ---
Subjective HPI/CC On Admission Date Seen by Provider: Jun 12, 2021 Time Seen by Provider: 11:20 Chantale Salguero is a 65 year old female with PMH HTN, HLD, T2DM on insulin, CKD4, GERD, obesity, who presented with a right foot wound. She stepped on some nails recently. She has a rash on her foot. It is swollen. She has some pain in her foot. She denies fevers. She denies nausea and vomiting. She denies chest pain and shortness of breath. She has never had a cellulitis before. Subjective/Events-last exam She is having some right leg pain. Her leg is swollen. She denies any other complaints or concerns. She has mayonnaise and a hairnet on her head. Focused Exam Time of Focused Exam: 13:00 Objective Exam Vital Signs Vital Signs Date Time Temp Pulse Resp B/P (MAP) Pulse Ox O2 Delivery O2 Flow Rate FiO2 06/12/21 11:21 36.5 70 22 124/70 (88) 95 Room Air 06/11/21 16:45 2.50 Capillary Refill : Less Than 3 SecondsLess Than 3 Seconds General Appearance: No Apparent Distress, Obese Respiratory: Lungs Clear, Normal Breath Sounds, No Respiratory Distress Cardiovascular: Regular Rate, Rhythm, No Edema, No Murmur Gastrointestinal: Normal Bowel Sounds, Non Tender, Soft Extremity: No Non Tender; Inflammation, Swelling Neurologic/Psychiatric: Alert, Oriented x3, No Motor/Sensory Deficits, Normal Mood/Affect Results/Procedures Lab Laboratory Tests 06/12/21 06:00 06/12/21 06:10 Patient resulted labs reviewed. Imaging: Reviewed Imaging Report Assessment/Plan Assessment and Plan Assess & Plan/Chief Complaint Necrotizing fasciitis Cellulitis Received tetanus vaccine in ER Continue Vanc and Zosyn for diabetic foot wound Wound culture with MRSA Wound care following Surgery following s/p I&D 06/09, 06/10, 06/11 s/p right 5th toe amputation 06/11 Venous doppler negative for DVT T2DM Continue Levemir Continue Novolog with meals Continue sliding scale Gabapentin BETSY on CKD4 Cr slightly above baseline IV fluids Monitor HTN GERD Continue home meds Obesity Clinically significant, no acute management needs DVT prophylaxis: Lovenox Diagnosis/Problems Diagnosis/Problems (1) Necrotizing fasciitis of ankle and foot Status: Acute (2) Cellulitis Status: Acute Qualifiers: Site of cellulitis of extremity: lower extremity Laterality: right Site of cellulitis: extremity Qualified Codes: L03.115 - Cellulitis of right lower limb (3) Abscess Status: Acute (4) T2DM (type 2 diabetes mellitus) Status: Chronic Qualifiers: Diabetes mellitus fpc insulin use: with fpc use Diabetes mellitus complication status: with skin complications Diabetes mellitus complication detail: with other skin complication Qualified Codes: E11.628 - Type 2 diabetes mellitus with other skin complications; Z79.4 - long term (current) use of insulin (5) Acute kidney injury superimposed on chronic kidney disease Status: Acute NERY THOMAS MD Jun 12, 2021 14:35
[2021-06-12] MEDS: ENOXAPARIN 40 MG/0.4 ML (LOVENOX) SYR SC SCH (15:08)
[2021-06-12] MEDS: ENOXAPARIN 30 MG/0.3 ML (LOVENOX) SYR SC SCH (15:27)
[2021-06-12 16:49] VITALS: BP 104/65
[2021-06-12 20:03] VITALS: BP 122/72
[2021-06-13 00:03] VITALS: BP 111/65
[2021-06-13 04:00] VITALS: BP 122/68
[2021-06-13 06:04] LABS: BASOPHILS # (AUTO) 0.1 10^3/uL (0.0-0.1); BASOPHILS % (AUTO) 1 % (0-10); EOSINOPHILS # (AUTO) 0.6 10^3/uL (0.0-0.3); EOSINOPHILS % (AUTO) 8 % (0-10); HEMATOCRIT 26 % (35-52); HEMOGLOBIN 8.2 g/dL (11.5-16.0); LYMPHOCYTES # (AUTO) 1.6 10^3/uL (1.0-4.0); LYMPHOCYTES % (AUTO) 22 % (12-44); MEAN CORPUSCULAR HEMOGLOBIN 30 pg (25-34); MEAN CORPUSCULAR HGB CONC 32 g/dL (32-36); MEAN CORPUSCULAR VOLUME 94 fL (80-99); MEAN PLATELET VOLUME 11.4 fL (9.0-12.2); MONOCYTES # (AUTO) 0.5 10^3/uL (0.0-1.0); MONOCYTES % (AUTO) 6 % (0-12); NEUTROPHILS # (AUTO) 4.5 10^3/uL (1.8-7.8); NEUTROPHILS % (AUTO) 62 % (42-75); PLATELET COUNT 335 10^3/uL (130-400); WHITE BLOOD COUNT 7.2 10^3/uL (4.3-11.0)
--- NOTE | 2021-06-13 06:11 | Progress Note - Surgery ---
JORDYKESHIA [facility] 06/13/21 0611: Subjective Date Seen by a Provider: Jun 13, 2021 Time Seen by a Provider: 07:15 Subjective/Events-last exam POD 2 S/P Right 5th toe amputation with I&D Ultrasound of RLE was negative for DVT GRICELDA, afebrile Patient reports pain while standing on foot. Otherwise pain is well controlled Also reports she has not had a BM in 1 week but states this is normal Review of Systems General: No Chills, No Other (fever) Pulmonary: No Dyspnea, No Cough Cardiovascular: No: Chest Pain, Palpitations Gastrointestinal: No: Nausea, Vomiting, Abdominal Pain Focused Exam Lactate Level 06/13/21 05:48: Time of Focused Exam: 13:00 Lactic Acid Level Laboratory Tests Test 06/13/21 05:48 Objective Exam Vital Signs Date Time Temp Pulse Resp B/P (MAP) Pulse Ox O2 Delivery O2 Flow Rate FiO2 06/13/21 00:03 36.4 72 22 111/65 (80) 95 Room Air 06/12/21 20:03 36.5 73 22 122/72 (89) 96 Room Air 06/12/21 19:43 Room Air 06/12/21 16:49 36.9 71 20 104/65 (78) 97 Room Air 06/12/21 11:21 36.5 70 22 124/70 (88) 95 Room Air 06/12/21 08:14 36.9 72 24 125/69 (87) 95 Room Air 06/12/21 08:00 Room Air I & O 06/13/21 06:59 Intake Total 1200 ml Output Total 2500 ml Balance -1300 ml Capillary Refill : Less Than 3 SecondsLess Than 3 Seconds General Appearance: No Apparent Distress, Obese HEENT: Other (missing dentition) Neck: Non Tender, Supple Respiratory: Chest Non Tender, No Accessory Muscle Use, No Respiratory Distress Cardiovascular: Regular Rate, Rhythm, No Edema, No Murmur Peripheral Pulses: 2+ Radial Pulses (R), 2+ Radial Pulses (L) Gastrointestinal: non tender, soft Extremity: No Calf Tenderness, Inflammation (on RLE), Swelling (On RLE), Other (Tenderness in the Right foot with palpation. Amputated 5th metatarsal. Warmth noted on RLE on palpation relative to LLE.) Neurologic/Psychiatric: Alert, Oriented x3, Normal Mood/Affect Skin: Normal Color, Warm/Dry, Erythema (RT foot) Lymphatic: No Adenopathy (cervical and axillary) Results Lab Laboratory Tests 06/12/21 06:10: Sodium Level 136, Potassium Level 4.9, Chloride Level 106, Carbon Dioxide Level 19L, Anion Gap 11, Blood Urea Nitrogen 32H, Creatinine 2.35H, Estimat Glomerular Filtration Rate 21, BUN/Creatinine Ratio 14, Glucose Level 167H, Calcium Level 8.0L 06/12/21 10:00: Glucometer 134H 06/12/21 15:15: Glucometer 70 06/12/21 20:02: Glucometer 141H 06/13/21 05:48: White Blood Count 7.2, Red Blood Count 2.72L, Hemoglobin 8.2L, Hematocrit 26L, Mean Corpuscular Volume 94, Mean Corpuscular Hemoglobin 30, Mean Corpuscular Hemoglobin Concent 32, Red Cell Distribution Width 14.5, Platelet Count 335, Mean Platelet Volume 11.4, Immature Granulocyte % (Auto) 1, Neutrophils (%) (Auto) 62, Lymphocytes (%) (Auto) 22, Monocytes (%) (Auto) 6, Eosinophils (%) (Auto) 8, Basophils (%) (Auto) 1, Neutrophils # (Auto) 4.5, Lymphocytes # (Auto) 1.6, Monocytes # (Auto) 0.5, Eosinophils # (Auto) 0.6H, Basophils # (Auto) 0.1, Immature Granulocyte # (Auto) 0.0 Microbiology 06/09/21 Gram Stain - Final, Resulted 06/09/21 Anaerobic Culture - Preliminary, Resulted No anaerobes isolated 06/09/21 Surgical Culture - Preliminary, Resulted Staphylococcus aureus Serratia marcescens 06/08/21 MRSA Screen - Final, Complete 06/07/21 Blood Culture - Preliminary, Resulted No growth Assessment/Plan Assessment/Plan Assessment/Plan Necrotizing Fasciitis of right foot - s/p I&D with debridement on 06/09 and 06/10 Necrotic 5th digit right foot - amputation 06/11 MRSA infection diabetes GERD Head lice CKD 4 Plan: Continue to monitor right for tissue changes in the RLE Continue wet to dry dressing changes Continue IV antibiotics, abscess culture of right foot from 06/09 was positive for MRSA. Continue head lice treatment Medicine also following SORIN YOU DO 06/13/21 1117: Subjective Subjective/Events-last exam Pain better in right leg. Right foot more swollen after standing in shower for longer period of time. Pain controlled. No new complaints. Denies n/v fever sweats chills shortness of breath or chest pain. U/s no DVT right lower ext. Objective Exam General Appearance: No Apparent Distress, Obese HEENT: PERRL/EOMI Neck: Non Tender, Supple Respiratory: Chest Non Tender, No Accessory Muscle Use, No Respiratory Distress Cardiovascular: Regular Rate, Rhythm, No JVD Gastrointestinal: non tender, soft Extremity: No Calf Tenderness, Other (Tenderness in the Right foot with palpation. Amputated 5th metatarsal open wound dorsum of foot, no necrotic tissue, surrounding skin has slight erythema and swelling.) Neurologic/Psychiatric: Alert, Oriented x3 Skin: Warm/Dry, Erythema (RT foot) Lymphatic: No Adenopathy (cervical and axillary) Assessment/Plan Assessment/Plan Assessment/Plan Necrotizing Fasciitis of right foot - s/p I&D with debridement on 06/09 and 06/10 Necrotic 5th digit right foot - amputation 06/11 MRSA infection diabetes GERD Head lice CKD 4 Continue to monitor right for tissue changes in right foot, may need further washout/debridement, maybe wound vac- NPO after midnight. Continue wet to dry dressing changes Continue IV antibiotics, abscess culture of right foot from 06/09 was positive for MRSA. Continue head lice treatment Supervisory-Addendum Brief Verification & Attestation Participated in pt care: history, MDM, physical Personally performed: exam, history, MDM, supervision of care Care discussed with: Medical Student Procedures: n/a Results interpretation: Verified all documentation Verification and Attestation of Medical Student E/M Service A medical student performed and documented this service in my presence. I reviewed and verified all information documented by the medical student and made modifications to such information, when appropriate. I personally performed the physical exam and medical decision making. Sorin You, Jun 13, 2021,11:16 KSEHIA SPENCE Jun 13, 2021 06:11 SORIN YOU DO Jun 13, 2021 11:17
[2021-06-13 06:17] LABS: POTASSIUM 4.7 MMOL/L (3.6-5.0)
[2021-06-13 06:22] LABS: CREATININE SERUM 1.72 MG/DL (0.60-1.30)
[2021-06-13] MEDS: inSUlin ASPART (NovoLOG) 1 UNIT/0.01 ML (CHARGE PER UNIT) SC SCH ×7 (06:28→22:16)
[2021-06-13] MEDS: CATHETER FLUSH 10 ML SYR IV SCH ×3 (06:28→22:15)
[2021-06-13] MEDS: LACTATED RINGERS 1,000 ML IV SCH ×3 (06:28→22:15)
[2021-06-13 07:47] VITALS: BP 132/67
[2021-06-13] MEDS: DAKIN'S 1/2 STRENGTH (0.25%) 473 ML BTL TOP SCH (08:48)
[2021-06-13] MEDS: PANTOPRAZOLE 40 MG (PROTONIX) TAB PO SCH ×2 (08:48→22:14)
[2021-06-13] MEDS: ENALAPRIL 2.5 MG (VASOTEC) TAB PO SCH (08:48)
[2021-06-13] MEDS: GABAPENTIN 400 MG (NEURONTIN) CAP PO SCH ×2 (08:48→22:14)
[2021-06-13] MEDS: SENNOSIDES 8.6 MG (SENOKOT) TAB PO SCH ×2 (08:48→22:14)
[2021-06-13] MEDS: DOCUSATE SODIUM 100 MG (COLACE) CAP PO SCH ×2 (08:48→22:14)
--- NOTE | 2021-06-13 09:30 | Anesthesia-General Post-Op ---
General Patient Condition Mental Status/LOC: Same as Preop Cardiovascular: Satisfactory Nausea/Vomiting: Absent Respiratory: Satisfactory Pain: Controlled Complications: Absent Post Op Complications Complications None Follow Up Care/Instructions Patient Instructions None needed. Anesthesia/Patient Condition Patient Condition Patient is doing well, no complaints, stable vital signs, no apparent adverse anesthesia problems. No complications reported per nursing. FERNANDA CHAVEZ CRNA Jun 13, 2021 09:30
[2021-06-13 12:39] VITALS: BP 126/72
[2021-06-13] MEDS ORDERED: PERMETHRIN (NIX) 1% LOTION 60 ML BTL TOP ONE (13:15)
[2021-06-13 15:47] VITALS: BP 136/76
[2021-06-13] MEDS: ENOXAPARIN 30 MG/0.3 ML (LOVENOX) SYR SC SCH (17:13)
[2021-06-13] MEDS: VANCOMYCIN 1 GM/NS 250 ML IVPB IV SCH ×2 (17:15)
--- NOTE | 2021-06-13 18:20 | Progress Note - Hospitalist ---
Subjective HPI/CC On Admission Date Seen by Provider: Jun 13, 2021 Time Seen by Provider: 11:50 Chantale Salguero is a 65 year old female with PMH HTN, HLD, T2DM on insulin, CKD4, GERD, obesity, who presented with a right foot wound. She stepped on some nails recently. She has a rash on her foot. It is swollen. She has some pain in her foot. She denies fevers. She denies nausea and vomiting. She denies chest pain and shortness of breath. She has never had a cellulitis before. Subjective/Events-last exam She is feeling about the same. Her foot pain is about the same. She thinks the rash on top of her foot is worse. She is not having fevers. Focused Exam Lactate Level 06/13/21 05:48: Lactic Acid Level 0.48L Time of Focused Exam: 13:00 Objective Exam Vital Signs Vital Signs Date Time Temp Pulse Resp B/P (MAP) Pulse Ox O2 Delivery O2 Flow Rate FiO2 06/13/21 15:47 37.0 70 20 136/76 (96) 96 Room Air 06/13/21 08:47 2.00 Capillary Refill : Less Than 3 SecondsLess Than 3 Seconds General Appearance: No Apparent Distress, Obese Respiratory: Lungs Clear, Normal Breath Sounds, No Respiratory Distress Cardiovascular: Regular Rate, Rhythm, No Edema, No Murmur Gastrointestinal: Normal Bowel Sounds, Non Tender, Soft Extremity: Non Tender, Inflammation, Swelling, Other (right foot bandaged) Neurologic/Psychiatric: Alert, Oriented x3, Normal Mood/Affect Skin: Warm/Dry, Erythema Results/Procedures Lab Laboratory Tests 06/13/21 05:48 Patient resulted labs reviewed. Imaging: Reviewed Imaging Report Assessment/Plan Assessment and Plan Assess & Plan/Chief Complaint Necrotizing fasciitis Cellulitis Received tetanus vaccine in ER Continue Vanc and Zosyn for diabetic foot wound Wound culture with MRSA Wound care following Surgery following s/p I&D 06/09, 06/10, 06/11 s/p right 5th toe amputation 06/11 Venous doppler negative for DVT NPO at midnight for possible further debridement T2DM Levemir Novolog with meals Sliding scale Gabapentin CKD4 Cr improved, likely at baseline Gentle IV fluids HTN GERD Continue home meds Obesity Clinically significant, no acute management needs DVT prophylaxis: Lovenox BETSY, resolved Diagnosis/Problems Diagnosis/Problems (1) Necrotizing fasciitis of ankle and foot Status: Acute (2) Cellulitis Status: Acute Qualifiers: Site of cellulitis of extremity: lower extremity Laterality: right Site of cellulitis: extremity Qualified Codes: L03.115 - Cellulitis of right lower limb (3) Abscess Status: Acute (4) T2DM (type 2 diabetes mellitus) Status: Chronic Qualifiers: 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
[2021-06-13 19:17] VITALS: BP 123/66
[2021-06-14] VITALS: BP 116/58
[2021-06-14 05:50] LABS: BASOPHILS # (AUTO) 0.1 10^3/uL (0.0-0.1); BASOPHILS % (AUTO) 1 % (0-10); EOSINOPHILS # (AUTO) 0.4 10^3/uL (0.0-0.3); EOSINOPHILS % (AUTO) 8 % (0-10); HEMATOCRIT 26 % (35-52); HEMOGLOBIN 8.3 g/dL (11.5-16.0); LYMPHOCYTES # (AUTO) 1.5 10^3/uL (1.0-4.0); LYMPHOCYTES % (AUTO) 27 % (12-44); MEAN CORPUSCULAR HEMOGLOBIN 30 pg (25-34); MEAN CORPUSCULAR HGB CONC 32 g/dL (32-36); MEAN CORPUSCULAR VOLUME 95 fL (80-99); MEAN PLATELET VOLUME 11.1 fL (9.0-12.2); MONOCYTES # (AUTO) 0.4 10^3/uL (0.0-1.0); MONOCYTES % (AUTO) 7 % (0-12); NEUTROPHILS # (AUTO) 3.2 10^3/uL (1.8-7.8); NEUTROPHILS % (AUTO) 57 % (42-75); PLATELET COUNT 366 10^3/uL (130-400); WHITE BLOOD COUNT 5.6 10^3/uL (4.3-11.0)
[2021-06-14 06:02] LABS: POTASSIUM 4.7 MMOL/L (3.6-5.0)
[2021-06-14 06:03] LABS: CALCIUM 8.1 MG/DL (8.5-10.1)
[2021-06-14 06:08] LABS: CREATININE SERUM 1.4 MG/DL (0.60-1.30)
[2021-06-14] MEDS: inSUlin ASPART (NovoLOG) 1 UNIT/0.01 ML (CHARGE PER UNIT) SC SCH ×7 (06:11→20:20)
[2021-06-14] MEDS: CATHETER FLUSH 10 ML SYR IV SCH ×3 (06:51→22:30)
--- NOTE | 2021-06-14 07:15 | Progress Note - Surgery ---
FLACO JAMIL 06/14/21 0715: Subjective Date Seen by a Provider: Jun 14, 2021 Time Seen by a Provider: 06:46 Subjective/Events-last exam Pt reports that she is still having some discomfort in her right foot and calf. States that the foot pain is mostly only present when her wound dressings is be ing changed. She is currently NPO in preparation for another procedure on the foot today. Right calf is still slightly larger than the left. She had a venous doppler study done on that leg 2 days ago that was negative for a DVT. She had her head shaved over the weekend due to head lice. She reports that she otherwise has no concerns. Review of Systems General: No Chills, No Night Sweats HEENT: No Head Aches, No Visual Changes Pulmonary: No Dyspnea, No Cough Cardiovascular: No: Chest Pain, Palpitations Gastrointestinal: No: Nausea, Vomiting, Abdominal Pain, Diarrhea, Constipation Genitourinary: No Dysuria, No Frequency Musculoskeletal: No: neck pain, shoulder pain, back pain Neurological: No: Weakness, Numbness Focused Exam Lactate Level 06/13/21 05:48: Lactic Acid Level 0.48L Time of Focused Exam: 13:00 Objective Exam Vital Signs Date Time Temp Pulse Resp B/P (MAP) Pulse Ox O2 Delivery O2 Flow Rate FiO2 06/14/21 00:00 36.9 70 20 116/58 (77) 96 Room Air 06/13/21 19:46 Room Air 06/13/21 19:17 37.1 72 20 123/66 (85) 97 Room Air 06/13/21 15:47 37.0 70 20 136/76 (96) 96 Room Air 06/13/21 12:39 36.0 66 22 126/72 (90) 100 Room Air 06/13/21 08:47 Nasal Cannula 2.00 06/13/21 08:28 Room Air 06/13/21 07:47 70 20 132/67 (88) 96 Room Air I & O 06/14/21 07:00 Intake Total 2070 ml Output Total 1250 ml Balance 820 ml Capillary Refill : Less Than 3 SecondsLess Than 3 Seconds General Appearance: No Apparent Distress, Obese HEENT: PERRL/EOMI; No Photophobia Neck: Non Tender, Supple Respiratory: Lungs Clear, Normal Breath Sounds, No Respiratory Distress Cardiovascular: Regular Rate, Rhythm, No Murmur, Normal Peripheral Pulses Peripheral Pulses: 2+ Radial Pulses (R), 2+ Radial Pulses (L) Gastrointestinal: non tender, soft Extremity: Calf Tenderness (right), Swelling (rt calf> lf calf), Other (right foot appears to be healing without signs of infection except for an area of possible purulent discharge near the distal 5th metatarsal) Neurologic/Psychiatric: Alert, Oriented x3, Normal Mood/Affect Skin: Normal Color, Warm/Dry Lymphatic: No Adenopathy (cervical and axillary) Results Lab Laboratory Tests 06/13/21 10:41: Glucometer 99 06/13/21 14:28: Glucometer 100 06/13/21 19:18: Glucometer 185H 06/13/21 22:12: Glucometer 208H 06/14/21 05:44: White Blood Count 5.6, Red Blood Count 2.77L, Hemoglobin 8.3L, Hematocrit 26L, Mean Corpuscular Volume 95, Mean Corpuscular Hemoglobin 30, Mean Corpuscular Hemoglobin Concent 32, Red Cell Distribution Width 14.4, Platelet Count 366, Mean Platelet Volume 11.1, Immature Granulocyte % (Auto) 1, Neutrophils (%) (Auto) 57, Lymphocytes (%) (Auto) 27, Monocytes (%) (Auto) 7, Eosinophils (%) (Auto) 8, Basophils (%) (Auto) 1, Neutrophils # (Auto) 3.2, Lymphocytes # (Auto) 1.5, Monocytes # (Auto) 0.4, Eosinophils # (Auto) 0.4H, Basophils # (Auto) 0.1, Immature Granulocyte # (Auto) 0.0, Sodium Level 139, Potassium Level 4.7, Chloride Level 109H, Carbon Dioxide Level 22, Anion Gap 8, Blood Urea Nitrogen 17, Creatinine 1.40H, Estimat Glomerular Filtration Rate 38, BUN/Creatinine Ratio 12, Glucose Level 178H, Calcium Level 8.1L Microbiology 06/09/21 Gram Stain - Final, Resulted 06/09/21 Anaerobic Culture - Preliminary, Resulted No anaerobes isolated 06/09/21 Surgical Culture - Final, Resulted Staphylococcus aureus Serratia marcescens 06/08/21 MRSA Screen - Final, Complete 06/07/21 Blood Culture - Final, Complete No growth Assessment/Plan Assessment/Plan Assessment/Plan Assessment Necrotizing Fasciitis of right foot - s/p I&D with debridement on 06/09 and 06/10 Necrotic 5th digit right foot - amputation 06/11 MRSA infection diabetes GERD Head lice CKD 4 Plan Continue to monitor for tissue changes in right foot, may need further washout/debridement, maybe wound vac. Start regular diet Continue wet to dry dressing changes Continue IV antibiotics, abscess culture of right foot from 06/09 was positive for MRSA. Continue head lice treatment TR MURPHY DO 06/14/21 1646: Subjective Time Seen by a Provider: 16:29 Subjective/Events-last exam Pt seen and examined with wound care in room placing wound VAC. Pt in good spirits with no complaints. Review of Systems General: No Chills, No Night Sweats Pulmonary: No Dyspnea, No Cough Cardiovascular: No: Chest Pain, Palpitations Gastrointestinal: No: Nausea, Vomiting, Abdominal Pain Musculoskeletal: foot pain Objective Exam General Appearance: No Apparent Distress, Obese Respiratory: Lungs Clear, Normal Breath Sounds, No Respiratory Distress Cardiovascular: Regular Rate, Rhythm, No Murmur Gastrointestinal: non tender, soft Extremity: Other (right foot appears to be healing without signs of infection except for an area of possible purulent discharge near the distal 5th metatarsal) Assessment/Plan Assessment/Plan Assessment/Plan Necrotizing Fasciitis of right foot - s/p I&D with debridement on 06/09 and 06/10 Necrotic 5th digit right foot - amputation 06/11 MRSA infection diabetes GERD Head lice CKD 4 Plan Continue to monitor for tissue changes in right foot, wound vac being placed now Start regular diet, Continue IV antibiotics, abscess culture of right foot from 06/09 was positive for MRSA. Supervisory-Addendum Brief Verification & Attestation Participated in pt care: history, MDM, physical Personally performed: exam, history, MDM, supervision of care Care discussed with: Medical Student Procedures: n/a Verification and Attestation of Medical Student E/M Service A medical student performed and documented this service. I then reviewed and verified all information documented by the medical student and made modifications to such information, when appropriate. I personally performed a physical exam, medical decision making and then discussed any differences between the notes and made revisions as necessary to create one note. Tr Murphy , 06/14/21 , 16:46 FLACO JAMIL Jun 14, 2021 07:15 TR MURPHY DO Jun 14, 2021 16:46
[2021-06-14 08:12] VITALS: BP 129/63
[2021-06-14] MEDS: SENNOSIDES 8.6 MG (SENOKOT) TAB PO SCH ×2 (09:39→20:18)
[2021-06-14] MEDS: DOCUSATE SODIUM 100 MG (COLACE) CAP PO SCH ×2 (09:39→20:18)
[2021-06-14] MEDS: ENALAPRIL 2.5 MG (VASOTEC) TAB PO SCH (09:40)
[2021-06-14] MEDS: DAKIN'S 1/2 STRENGTH (0.25%) 473 ML BTL TOP SCH (09:40)
[2021-06-14] MEDS: PANTOPRAZOLE 40 MG (PROTONIX) TAB PO SCH ×2 (09:40→20:27)
[2021-06-14] MEDS: GABAPENTIN 400 MG (NEURONTIN) CAP PO SCH ×2 (09:40→20:27)
--- NOTE | 2021-06-14 12:18 | Progress Note - Hospitalist ---
NGOC GOMES MED STUDENT 06/14/21 1218: Subjective HPI/CC On Admission Date Seen by Provider: Jun 14, 2021 Time Seen by Provider: 08:10 Chantale Salguero is a 65 year old female with PMH HTN, HLD, T2DM on insulin, CKD4, GERD, obesity, who presented with a right foot wound. She stepped on some nails recently. She has a rash on her foot. It is swollen. She has some pain in her foot. She denies fevers. She denies nausea and vomiting. She denies chest pain and shortness of breath. She has never had a cellulitis before. Subjective/Events-last exam Pt Is awake and sitting up in bed this morning. She states that her foot hurts but not as bad as it has been. She has been eating and drinking without d ifficulty. No complaints with urination or bowel movements. She HAs to walk on her heel because of her foot pain. She was NPO this morning and was possibly going to go to surgery again today but she ended up not having to go in. She states that she feels her wound has been getting better. She has no other concerns or questions this morning. Review of Systems General: No Chills, No Night Sweats, No Malaise HEENT: No Head Aches, No Visual Changes, No Dysphasia Pulmonary: No Dyspnea, No Cough Cardiovascular: No: Chest Pain, Palpitations, Edema Gastrointestinal: No: Nausea, Vomiting, Abdominal Pain, Diarrhea, Constipation, Melena, Hematochezia Genitourinary: No Dysuria, No Frequency, No Hematuria Musculoskeletal: foot pain Focused Exam Lactate Level 06/13/21 05:48: Lactic Acid Level 0.48L Time of Focused Exam: 13:00 Objective Exam Vital Signs Vital Signs Date Time Temp Pulse Resp B/P (MAP) Pulse Ox O2 Delivery O2 Flow Rate FiO2 06/14/21 08:12 36.6 66 20 129/63 (85) 97 Room Air 06/13/21 08:47 2.00 Capillary Refill : Less Than 3 SecondsLess Than 3 Seconds General Appearance: No Apparent Distress, WD/WN HEENT: PERRL/EOMI, Moist Mucous Membranes Neck: Supple Respiratory: Chest Non Tender, Lungs Clear, Normal Breath Sounds, No Accessory Muscle Use, No Respiratory Distress Cardiovascular: Regular Rate, Rhythm, No Edema, No Murmur, Normal Peripheral Pulses Gastrointestinal: Normal Bowel Sounds, No Organomegaly, No Pulsatile Mass, Non Tender, Soft Rectal: Deferred Extremity: Non Tender, No Calf Tenderness, No Pedal Edema, Other (R foot wrapped in bandage, mild pain, no redness or swelling up into the leg. Bandage is clean, not soiled or leaking through) Neurologic/Psychiatric: Alert, Oriented x3, Normal Mood/Affect Skin: Normal Color, Warm/Dry Results/Procedures Lab Laboratory Tests 06/14/21 05:44 Patient resulted labs reviewed. Imaging: Reviewed Imaging Report Assessment/Plan Assessment and Plan Assess & Plan/Chief Complaint R Foot cellulitis Necrotizing fasciits S/P Debreidment and 5th toe amputation -Cultures back + for S. aureus and S. marcescens -Continue ABX -PT did not need to go to surgery today -Continue wound care -Daily labs/watch for signs of infection -Pain meds -PT as can tolerate BETSY -Resolved -Creatine today 1.4 which is continuing to improve T2DM -Continue to manage -Sugars within acceptable range. Supervisory-Addendum Brief Verification & Attestation Participated in pt care: history, physical Personally performed: exam Care discussed with: Medical Student Procedures: n/a n/a SUSIE GAMBOA DO 06/15/21 0534: Subjective Subjective/Events-last exam Pt doing well Heplocking IV fluid Blood cultures showing serratia and staph Cellulitis necrotizing type of the right foot will need more surgeries She had head lice so she shaved her head Creatinine 1.4 Maintained on Vanc Review of Systems General: Fatigue, Malaise Musculoskeletal: foot pain Objective Exam General Appearance: No Apparent Distress, WD/WN, Chronically ill Respiratory: No Accessory Muscle Use, No Respiratory Distress, Decreased Breath Sounds Cardiovascular: Regular Rate, Rhythm Neurologic/Psychiatric: Alert, Oriented x3 Assessment/Plan Assessment and Plan Assess & Plan/Chief Complaint Continue IV antibiotics Appreciate surgical interventions Supervisory-Addendum Brief Verification & Attestation Participated in pt care: history, MDM, physical Personally performed: exam, history, MDM, supervision of care Care discussed with: Medical Student Procedures: n/a Results interpretation: Verified all documentation Verification and Attestation of Medical Student E/M Service A medical student performed and documented this service in my presence. I reviewed and verified all information documented by the medical student and made modifications to such information, when appropriate. I personally performed the physical exam and medical decision making. Susie Gamboa, Jun 15, 2021,05:34 NGOC GOMES MED STUDENT Jun 14, 2021 12:18 SUSIE GAMBOA DO Jun 15, 2021 05:34
[2021-06-14] MEDS: ENOXAPARIN 40 MG/0.4 ML (LOVENOX) SYR SC SCH (15:19)
[2021-06-14 15:37] VITALS: BP 129/72
[2021-06-14 23:00] VITALS: BP 127/66
[2021-06-15] MEDS ORDERED: TROUGH ORDER-PHARMACY XX ONE (05:00)
[2021-06-15] MEDS: ACETAMINOPHEN 325 MG TABLET PO PRN (05:49)
[2021-06-15] MEDS: CATHETER FLUSH 10 ML SYR IV SCH ×3 (05:51→21:00)
[2021-06-15] MEDS: inSUlin ASPART (NovoLOG) 1 UNIT/0.01 ML (CHARGE PER UNIT) SC SCH ×7 (05:54→19:47)
[2021-06-15 06:04] LABS: BASOPHILS # (AUTO) 0.1 10^3/uL (0.0-0.1); BASOPHILS % (AUTO) 1 % (0-10); EOSINOPHILS # (AUTO) 0.4 10^3/uL (0.0-0.3); EOSINOPHILS % (AUTO) 5 % (0-10); HEMATOCRIT 27 % (35-52); HEMOGLOBIN 8.5 g/dL (11.5-16.0); LYMPHOCYTES # (AUTO) 1.8 10^3/uL (1.0-4.0); LYMPHOCYTES % (AUTO) 26 % (12-44); MEAN CORPUSCULAR HEMOGLOBIN 30 pg (25-34); MEAN CORPUSCULAR HGB CONC 32 g/dL (32-36); MEAN CORPUSCULAR VOLUME 96 fL (80-99); MEAN PLATELET VOLUME 10.9 fL (9.0-12.2); MONOCYTES # (AUTO) 0.5 10^3/uL (0.0-1.0); MONOCYTES % (AUTO) 7 % (0-12); NEUTROPHILS # (AUTO) 4.4 10^3/uL (1.8-7.8); NEUTROPHILS % (AUTO) 61 % (42-75); PLATELET COUNT 403 10^3/uL (130-400); WHITE BLOOD COUNT 7.2 10^3/uL (4.3-11.0)
[2021-06-15 06:32] LABS: ALBUMIN 2.4 GM/DL (3.2-4.5); BILIRUBIN,TOTAL 0.2 MG/DL (0.1-1.0); CALCIUM 8.2 MG/DL (8.5-10.1); CREATININE SERUM 1.33 MG/DL (0.60-1.30); POTASSIUM 4.7 MMOL/L (3.6-5.0); TOTAL PROTEIN 5.4 GM/DL (6.4-8.2); VANCOMYCIN,TROUGH 12.8 UG/ML (10.0-20.0)
[2021-06-15] MEDS: VANCOMYCIN 1 GM/NS 250 ML IVPB IV SCH ×2 (06:45)
[2021-06-15 07:25] VITALS: BP 126/68
--- NOTE | 2021-06-15 07:44 | Progress Note - Surgery ---
FLACO JAMIL 06/15/21 0744: Subjective Date Seen by a Provider: Jun 15, 2021 Time Seen by a Provider: 07:19 Subjective/Events-last exam Pt reports that she had some foot pain early this morning. Resolved when she received her pain medication. States that she is now rarely having foot pain. Tolerating her solid foods diet well. When asked she denied having any other concerns. Review of Systems General: No Chills, No Night Sweats HEENT: No Head Aches, No Visual Changes Pulmonary: No Dyspnea, No Cough Cardiovascular: No: Chest Pain, Palpitations Gastrointestinal: No: Nausea, Vomiting, Abdominal Pain Genitourinary: No Dysuria, No Frequency Musculoskeletal: foot pain; No: neck pain, shoulder pain, back pain, leg pain Neurological: No: Weakness, Numbness Focused Exam Lactate Level 06/13/21 05:48: Lactic Acid Level 0.48L Time of Focused Exam: 13:00 Objective Exam Vital Signs Date Time Temp Pulse Resp B/P (MAP) Pulse Ox O2 Delivery O2 Flow Rate FiO2 06/15/21 07:25 36.4 65 20 126/68 (87) 94 Room Air 06/14/21 23:00 37.3 68 20 127/66 (86) 95 Room Air 06/14/21 20:25 Room Air 06/14/21 15:37 36.6 70 22 129/72 (91) 99 Room Air 06/14/21 08:12 36.6 66 20 129/63 (85) 97 Room Air 06/14/21 08:00 Room Air I & O 06/15/21 07:00 Intake Total 1383 ml Output Total 2940 ml Balance -1557 ml Capillary Refill : Less Than 3 SecondsLess Than 3 Seconds General Appearance: No Apparent Distress, WD/WN, Chronically ill HEENT: PERRL/EOMI; No Photophobia Neck: Non Tender, Supple Respiratory: Normal Breath Sounds, No Accessory Muscle Use, No Respiratory Distress Cardiovascular: Regular Rate, Rhythm, No Murmur, Normal Peripheral Pulses Gastrointestinal: non tender, soft Extremity: Non Tender, No Calf Tenderness, Swelling (Rt calf swelling is improving), Other (Wound vac in place on right foot. minimal amount of discharge in the vac collection chamber. ) Neurologic/Psychiatric: Alert, Oriented x3, Normal Mood/Affect Skin: Normal Color, Warm/Dry Lymphatic: No Adenopathy (cervical ) Results Lab Laboratory Tests 06/14/21 10:30: Glucometer 169H 06/14/21 14:49: Glucometer 212H 06/14/21 19:26: Glucometer 140H 06/15/21 05:45: White Blood Count 7.2, Red Blood Count 2.80L, Hemoglobin 8.5L, Hematocrit 27L, Mean Corpuscular Volume 96, Mean Corpuscular Hemoglobin 30, Mean Corpuscular Hemoglobin Concent 32, Red Cell Distribution Width 14.6H, Platelet Count 403H, Mean Platelet Volume 10.9, Immature Granulocyte % (Auto) 0, Neutrophils (%) (Auto) 61, Lymphocytes (%) (Auto) 26, Monocytes (%) (Auto) 7, Eosinophils (%) (Auto) 5, Basophils (%) (Auto) 1, Neutrophils # (Auto) 4.4, Lymphocytes # (Auto) 1.8, Monocytes # (Auto) 0.5, Eosinophils # (Auto) 0.4H, Basophils # (Auto) 0.1, Immature Granulocyte # (Auto) 0.0, Sodium Level 141, Potassium Level 4.7, Chloride Level 111H, Carbon Dioxide Level 21, Anion Gap 9, Blood Urea Nitrogen 16, Creatinine 1.33H, Estimat Glomerular Filtration Rate 40, BUN/Creatinine Ratio 12, Glucose Level 110H, Calcium Level 8.2L, Corrected Calcium 9.5, Total Bilirubin 0.2, Aspartate Amino Transf (AST/SGOT) 15, Alanine Aminotransferase (ALT/SGPT) 13, Alkaline Phosphatase 49, Total Protein 5.4L, Albumin 2.4L, Vanc omycin Level Trough 12.8 06/15/21 05:50: Glucometer 99 Microbiology 06/09/21 Gram Stain - Final, Complete 06/09/21 Anaerobic Culture - Final, Complete No anaerobes isolated 06/09/21 Surgical Culture - Final, Complete Staphylococcus aureus Serratia marcescens 06/08/21 MRSA Screen - Final, Complete 06/07/21 Blood Culture - Final, Complete No growth Assessment/Plan Assessment/Plan Assessment/Plan Necrotizing Fasciitis of right foot - s/p I&D with debridement on 06/09 and 06/10 Necrotic 5th digit right foot - amputation 06/11 MRSA infection diabetes GERD Head lice CKD 4 Plan Continue to monitor for tissue changes in right foot, wound vac in place. Tolerating regular diet well, Continue IV antibiotics. Continue pain medications as needed. abscess culture of right foot from 06/09 was positive for MRSA. TR MURPHY DO 06/15/21 1344: Subjective Time Seen by a Provider: 11:39 Subjective/Events-last exam Pt seen and examined, no new complaints....does have some minimal foot pain. Review of Systems Pulmonary: No Dyspnea, No Cough Cardiovascular: No: Chest Pain, Palpitations Gastrointestinal: No: Nausea, Vomiting, Abdominal Pain Musculoskeletal: foot pain Objective Exam General Appearance: No Apparent Distress, Chronically ill Respiratory: Normal Breath Sounds, No Accessory Muscle Use, No Respiratory Distress Cardiovascular: Regular Rate, Rhythm, No Murmur Gastrointestinal: non tender, soft Extremity: Non Tender, No Calf Tenderness, Swelling (Rt calf swelling is improving), Other (Wound vac in place on right foot. minimal amount of discharge in the vac collection chamber. foot looks a little swollen but otherwise good) Assessment/Plan Assessment/Plan Assessment/Plan Necrotizing Fasciitis of right foot - s/p I&D with debridement on 06/09 and 06/10 Necrotic 5th digit right foot - amputation 06/11 MRSA infection diabetes GERD Head lice CKD 4 Plan Continue to monitor for tissue changes in right foot, wound vac in place. Tolerating regular diet well, Continue IV antibiotics. Continue pain medications as needed. abscess culture of right foot from 06/09 was positive for MRSA. Supervisory-Addendum Brief Verification & Attestation Participated in pt care: history, MDM, physical Personally performed: exam, history, MDM, supervision of care Care discussed with: Medical Student Procedures: n/a Verification and Attestation of Medical Student E/M Service A medical student performed and documented this service. I then reviewed and verified all information documented by the medical student and made clover fications to such information, when appropriate. I personally performed a physical exam, medical decision making and then discussed any differences between the notes and made revisions as necessary to create one note. Tr Murphy , 06/15/21 , 13:44 FLACO JAMIL Jun 15, 2021 07:44 TR MURPHY DO Jun 15, 2021 13:44
[2021-06-15] MEDS: DOCUSATE SODIUM 100 MG (COLACE) CAP PO SCH ×2 (09:28→20:59)
[2021-06-15] MEDS: SENNOSIDES 8.6 MG (SENOKOT) TAB PO SCH ×2 (09:29→19:49)
[2021-06-15] MEDS: PANTOPRAZOLE 40 MG (PROTONIX) TAB PO SCH ×2 (10:02→20:59)
[2021-06-15] MEDS: GABAPENTIN 400 MG (NEURONTIN) CAP PO SCH ×2 (10:02→20:59)
[2021-06-15] MEDS: ENALAPRIL 2.5 MG (VASOTEC) TAB PO SCH (10:03)
[2021-06-15] MEDS: DAKIN'S 1/2 STRENGTH (0.25%) 473 ML BTL TOP SCH (10:03)
[2021-06-15] MEDS ORDERED: VANCOMYCIN 500 MG/NS 100 ML IV NR ×2 (11:00)
--- NOTE | 2021-06-15 11:32 | Progress Note - Hospitalist ---
NGOC GOMES MED STUDENT 06/15/21 1132: Subjective HPI/CC On Admission Date Seen by Provider: Jun 15, 2021 Time Seen by Provider: 08:10 Chantale Salguero is a 65 year old female with PMH HTN, HLD, T2DM on insulin, CKD4, GERD, obesity, who presented with a right foot wound. She stepped on some nails recently. She has a rash on her foot. It is swollen. She has some pain in her foot. She denies fevers. She denies nausea and vomiting. She denies chest pain and shortness of breath. She has never had a cellulitis before. Subjective/Events-last exam Mrs. Salguero is awake and lying in bed this morning. She states that she had an episode of pain around 5 am today but it was greatly improved after some pain meds. She had not been visited by surgery yet but states she has not heard of any plans to take her back to surgery. She is eating and drinking okay without complications. LBM was last night and she does not have any bowel or bladder complaints. She is not doing PT. she does not have any concerns today except for if her foot is healing okay. Review of Systems General: No Chills, No Night Sweats, No Fatigue HEENT: No Head Aches, No Visual Changes, No Dysphasia Pulmonary: No Dyspnea, No Cough, No Pleuritic Chest Pain Cardiovascular: No: Chest Pain, Palpitations, Edema Gastrointestinal: No: Nausea, Vomiting, Abdominal Pain, Diarrhea, Constipation, Melena Genitourinary: No Dysuria, No Frequency, No Incontinence, No Hematuria Musculoskeletal: foot pain Neurological: No: Weakness, Numbness Focused Exam Lactate Level 06/13/21 05:48: Lactic Acid Level 0.48L Time of Focused Exam: 13:00 Objective Exam Vital Signs Vital Signs Date Time Temp Pulse Resp B/P (MAP) Pulse Ox O2 Delivery O2 Flow Rate FiO2 06/15/21 07:25 36.4 65 20 126/68 (87) 94 Room Air 06/13/21 08:47 2.00 Capillary Refill : Less Than 3 SecondsLess Than 3 Seconds General Appearance: No Apparent Distress, WD/WN HEENT: PERRL/EOMI, Moist Mucous Membranes Neck: Supple Respiratory: Chest Non Tender, Lungs Clear, Normal Breath Sounds, No Accessory Muscle Use, No Respiratory Distress Cardiovascular: Regular Rate, Rhythm, No Edema, No Murmur, Normal Peripheral Pulses Gastrointestinal: Normal Bowel Sounds, No Organomegaly, No Pulsatile Mass, Non Tender, Soft Rectal: Deferred Back: Normal Inspection Extremity: Normal Capillary Refill, Non Tender, No Calf Tenderness, No Pedal Edema, Other (Wound Vac placed on R foot. Slight red color to area immediatley surrounding but no spreading erythema or other leg involvement. No material in wound vac) Neurologic/Psychiatric: Alert, Oriented x3, Normal Mood/Affect Skin: Normal Color, Warm/Dry Results/Procedures Lab Laboratory Tests 06/15/21 05:45 Patient resulted labs reviewed. Imaging: Reviewed Imaging Report Assessment/Plan Assessment and Plan Assess & Plan/Chief Complaint R Foot cellulitis Necrotizing fasciits S/P Debreidment and 5th toe amputation -Cultures back + for S. aureus and S. marcescens -Continue ABX -PT did not need to go to surgery today, surgery will see her today and decide if she needs any further intervention -Continue wound care -Daily labs/watch for signs of infection -Pain meds -PT as can tolerate BETSY -Resolved -Creatine today 1.33 which is continuing to improve T2DM -Continue to manage -Sugars within acceptable range. Supervisory-Addendum Brief Verification & Attestation Participated in pt care: history, physical Personally performed: exam Care discussed with: Medical Student Procedures: n/a n/a NEY GAMBOA DO 06/16/21 0514: Subjective Subjective/Events-last exam Pt doing okay Having some loose stools Wound vac in place IV antibiotics maintained Checked meds and labs Review of Systems General: Fatigue Musculoskeletal: foot pain Objective Exam General Appearance: No Apparent Distress, WD/WN, Chronically ill Respiratory: Lungs Clear, Normal Breath Sounds Cardiovascular: Regular Rate, Rhythm Neurologic/Psychiatric: Alert, Oriented x3, No Motor/Sensory Deficits, Normal Mood/Affect Assessment/Plan Assessment and Plan Assess & Plan/Chief Complaint Antibiotics Wound VAC NGOC GOMES MED STUDENT Jun 15, 2021 11:32 NEY GAMBOA DO Jun 16, 2021 05:14
[2021-06-15 16:00] VITALS: BP 156/76
[2021-06-15] MEDS: ENOXAPARIN 40 MG/0.4 ML (LOVENOX) SYR SC SCH (16:06)
[2021-06-16] VITALS: BP 135/69
[2021-06-16 05:53] LABS: BASOPHILS # (AUTO) 0.1 10^3/uL (0.0-0.1); BASOPHILS % (AUTO) 1 % (0-10); EOSINOPHILS # (AUTO) 0.3 10^3/uL (0.0-0.3); EOSINOPHILS % (AUTO) 4 % (0-10); HEMATOCRIT 26 % (35-52); HEMOGLOBIN 8.3 g/dL (11.5-16.0); LYMPHOCYTES # (AUTO) 1.8 10^3/uL (1.0-4.0); LYMPHOCYTES % (AUTO) 30 % (12-44); MEAN CORPUSCULAR HEMOGLOBIN 31 pg (25-34); MEAN CORPUSCULAR HGB CONC 32 g/dL (32-36); MEAN CORPUSCULAR VOLUME 96 fL (80-99); MEAN PLATELET VOLUME 11.3 fL (9.0-12.2); MONOCYTES # (AUTO) 0.5 10^3/uL (0.0-1.0); MONOCYTES % (AUTO) 9 % (0-12); NEUTROPHILS # (AUTO) 3.3 10^3/uL (1.8-7.8); NEUTROPHILS % (AUTO) 56 % (42-75); PLATELET COUNT 388 10^3/uL (130-400); WHITE BLOOD COUNT 5.9 10^3/uL (4.3-11.0)
[2021-06-16 06:08] LABS: ALBUMIN 2.4 GM/DL (3.2-4.5); POTASSIUM 4.1 MMOL/L (3.6-5.0)
[2021-06-16 06:09] LABS: CALCIUM 7.9 MG/DL (8.5-10.1)
[2021-06-16 06:10] LABS: TOTAL PROTEIN 5.5 GM/DL (6.4-8.2)
[2021-06-16 06:12] LABS: BILIRUBIN,TOTAL 0.1 MG/DL (0.1-1.0)
[2021-06-16 06:14] LABS: CREATININE SERUM 1.23 MG/DL (0.60-1.30)
[2021-06-16 06:16] LABS: BILIRUBIN,DIRECT 0.1 MG/DL (0.0-0.3)
[2021-06-16] MEDS: inSUlin ASPART (NovoLOG) 1 UNIT/0.01 ML (CHARGE PER UNIT) SC SCH ×7 (06:30→20:59)
[2021-06-16] MEDS: CATHETER FLUSH 10 ML SYR IV SCH ×3 (06:37→21:04)
--- NOTE | 2021-06-16 07:33 | Progress Note - Surgery ---
FLACO JAMIL 06/16/21 0733: Subjective Date Seen by a Provider: Jun 16, 2021 Time Seen by a Provider: 06:39 Subjective/Events-last exam Pt reports that she has not had any pain in her right foot this morning and that the pain has been controlled well the last couple days. Did have some nausea t his morning that improved once given some Zofran. When asked pt denied having any other concerns. Review of Systems General: No Chills, No Night Sweats HEENT: No Head Aches, No Visual Changes Pulmonary: No Dyspnea, No Cough Cardiovascular: No: Chest Pain, Palpitations Gastrointestinal: Nausea, Abdominal Pain; No: Vomiting Genitourinary: No Dysuria, No Frequency Musculoskeletal: No: back pain, leg pain, foot pain Neurological: No: Weakness, Numbness Focused Exam Time of Focused Exam: 13:00 Objective Exam Vital Signs Date Time Temp Pulse Resp B/P (MAP) Pulse Ox O2 Delivery O2 Flow Rate FiO2 06/16/21 00:00 36.8 72 17 135/69 (91) 97 Room Air 06/15/21 20:54 Room Air 06/15/21 16:00 37.0 73 20 156/76 (102) 97 Room Air 06/15/21 08:00 94 Room Air I & O 06/16/21 07:00 Intake Total 2522 ml Output Total 1720 ml Balance 802 ml Capillary Refill : Less Than 3 SecondsLess Than 3 Seconds General Appearance: No Apparent Distress, Chronically ill, Obese HEENT: PERRL/EOMI; No Photophobia Neck: Non Tender, Supple Respiratory: Lungs Clear, Normal Breath Sounds, No Accessory Muscle Use Cardiovascular: Regular Rate, Rhythm, No Murmur, Normal Peripheral Pulses Gastrointestinal: non tender, soft Extremity: Non Tender, No Calf Tenderness, Swelling (Rt calf swelling has improved. Swelling still present in rt foot), Other (Wound vac in place on right foot. minimal amount of discharge in the vac collection chamber. foot looks a little swollen but otherwise good) Neurologic/Psychiatric: Alert, Oriented x3, Normal Mood/Affect Skin: Normal Color, Warm/Dry Lymphatic: No Adenopathy (cervical ) Results Lab Laboratory Tests 06/15/21 09:05: Glucometer 152H 06/15/21 14:22: Glucometer 106 06/15/21 16:18: Glucometer 118H 06/15/21 19:44: Glucometer 101 06/16/21 05:10: White Blood Count 5.9, Red Blood Count 2.70L, Hemoglobin 8.3L, Hematocrit 26L, Mean Corpuscular Volume 96, Mean Corpuscular Hemoglobin 31, Mean Corpuscular Hemoglobin Concent 32, Red Cell Distribution Width 14.8H, Platelet Count 388, Mean Platelet Volume 11.3, Immature Granulocyte % (Auto) 0, Neutrophils (%) (Auto) 56, Lymphocytes (%) (Auto) 30, Monocytes (%) (Auto) 9, Eosinophils (%) (Auto) 4, Basophils (%) (Auto) 1, Neutrophils # (Auto) 3.3, Lymphocytes # (Auto) 1.8, Monocytes # (Auto) 0.5, Eosinophils # (Auto) 0.3, Basophils # (Auto) 0.1, Immature Granulocyte # (Auto) 0.0, Sodium Level 140, Potassium Level 4.1, Chloride Level 109H, Carbon Dioxide Level 21, Anion Gap 10, Blood Urea Nitrogen 18, Creatinine 1.23, Estimat Glomerular Filtration Rate 44, BUN/Creatinine Ratio 15, Glucose Level 160H, Calcium Level 7.9L, Total Bilirubin 0.1, Direct Bilirubin 0.1, Indirect Bilirubin 0.0, Aspartate Amino Transf (AST/SGOT) 16, Alanine Aminotransferase (ALT/SGPT) 12, Alkaline Phosphatase 46, Total Protein 5.5L, Albumin 2.4L Microbiology 06/09/21 Gram Stain - Final, Complete 06/09/21 Anaerobic Culture - Final, Complete No anaerobes isolated 06/09/21 Surgical Culture - Final, Complete Staphylococcus aureus Serratia marcescens 06/08/21 MRSA Screen - Final, Complete 06/07/21 Blood Culture - Final, Complete No growth Assessment/Plan Assessment/Plan Assessment/Plan Necrotizing Fasciitis of right foot - s/p I&D with debridement on 06/09 and 06/10 Necrotic 5th digit right foot - amputation 06/11 MRSA infection diabetes GERD Head lice CKD 4 Plan Continue to monitor for tissue changes in right foot, wound vac in place. Tolerating regular diet well, Continue IV antibiotics. Continue pain medications and anti-emetics as needed. abscess culture of right foot from 06/09 was positive for MRSA. TR MURPHY DO 06/16/21 1422: Subjective Time Seen by a Provider: 13:12 Subjective/Events-last exam Pt seen and examined, no complaints and asking to go home. Review of Systems General: No Chills, No Night Sweats Pulmonary: No Dyspnea, No Cough Cardiovascular: No: Chest Pain, Palpitations Gastrointestinal: Nausea, Abdominal Pain; No: Vomiting Musculoskeletal: No: foot pain Objective Exam General Appearance: No Apparent Distress, Chronically ill Respiratory: Lungs Clear, Normal Breath Sounds, No Accessory Muscle Use Cardiovascular: Regular Rate, Rhythm, No Murmur Gastrointestinal: non tender, soft Extremity: Swelling (Rt calf swelling has improved. Swelling still present in rt foot), Other (Wound vac in place on right foot. minimal amount of discharge in the vac collection chamber. foot looks a little swollen but otherwise good) Assessment/Plan Assessment/Plan Assessment/Plan Necrotizing Fasciitis of right foot - s/p I&D with debridement on 06/09 and 06/10 Necrotic 5th digit right foot - amputation 06/11 MRSA infection diabetes GERD Head lice CKD 4 Plan Try to set up home wound VAC and then have pt come in to wound care clinic. Switch to PO antibiotics. Continue pain medications and anti-emetics as needed. Supervisory-Addendum Brief Verification & Attestation Participated in pt care: history, MDM, physical Personally performed: exam, history, MDM, supervision of care Care discussed with: Medical Student Procedures: n/a Verification and Attestation of Medical Student E/M Service A medical student performed and documented this service. I then reviewed and verified all information documented by the medical student and made modifications to such information, when appropriate. I personally performed a physical exam, medical decision making and then discussed any differences between the notes and made revisions as necessary to create one note. Tr Murphy , 06/16/21 , 14:20 FLACO JAMIL Jun 16, 2021 07:33 TR MURPHY DO Jun 16, 2021 14:22
[2021-06-16 08:00] VITALS: BP 135/74
[2021-06-16] MEDS: DOCUSATE SODIUM 100 MG (COLACE) CAP PO SCH ×2 (09:39→21:03)
[2021-06-16] MEDS: SENNOSIDES 8.6 MG (SENOKOT) TAB PO SCH ×2 (09:39→21:03)
[2021-06-16] MEDS: GABAPENTIN 400 MG (NEURONTIN) CAP PO SCH ×2 (09:39→21:03)
[2021-06-16] MEDS: ENALAPRIL 2.5 MG (VASOTEC) TAB PO SCH (09:39)
[2021-06-16] MEDS: PANTOPRAZOLE 40 MG (PROTONIX) TAB PO SCH ×2 (09:39→21:03)
--- NOTE | 2021-06-16 12:06 | Progress Note - Hospitalist ---
NGOC GOMES MED STUDENT 06/16/21 1206: Subjective HPI/CC On Admission Date Seen by Provider: Jun 16, 2021 Time Seen by Provider: 08:10 Chantale Salguero is a 65 year old female with PMH HTN, HLD, T2DM on insulin, CKD4, GERD, obesity, who presented with a right foot wound. She stepped on some nails recently. She has a rash on her foot. It is swollen. She has some pain in her foot. She denies fevers. She denies nausea and vomiting. She denies chest pain and shortness of breath. She has never had a cellulitis before. Subjective/Events-last exam Mrs. Salguero is sitting up in bed and watching TV this morning. She states that she is not really having any pain and she is not having any more pain episodes today like she did yesterday. She has been eating and drinking without difficulty. She has no bowel or bladder concerns. Has not really been able to get out of bed and walk. She did see surgery who told her that she would be ready to go tomorrow. She will see case work today to help to set up her going home and what kind of resources she'll need. Review of Systems General: No Chills, No Night Sweats HEENT: No Head Aches, No Visual Changes, No Eye Pain, No Dysphasia Pulmonary: No Dyspnea, No Cough, No Pleuritic Chest Pain Cardiovascular: No: Chest Pain, Palpitations, Edema Gastrointestinal: No: Nausea, Vomiting, Abdominal Pain, Diarrhea, Constipation, Melena, Hematochezia Genitourinary: No Dysuria, No Frequency, No Hematuria Musculoskeletal: foot pain (Right side) Neurological: No: Weakness, Numbness Focused Exam Time of Focused Exam: 13:00 Objective Exam Vital Signs Vital Signs Date Time Temp Pulse Resp B/P (MAP) Pulse Ox O2 Delivery O2 Flow Rate FiO2 06/16/21 08:33 Room Air 06/16/21 08:00 36.0 67 20 135/74 (94) 95 06/13/21 08:47 2.00 Capillary Refill : Less Than 3 SecondsLess Than 3 Seconds General Appearance: No Apparent Distress, WD/WN HEENT: PERRL/EOMI, Moist Mucous Membranes Neck: Supple Respiratory: Chest Non Tender, Lungs Clear, Normal Breath Sounds, No Accessory Muscle Use, No Respiratory Distress Cardiovascular: Regular Rate, Rhythm, No Edema, No Murmur, Normal Peripheral Pulses Gastrointestinal: Normal Bowel Sounds, No Organomegaly, No Pulsatile Mass, Non Tender, Soft Rectal: Deferred Extremity: Normal Capillary Refill, Non Tender, No Calf Tenderness, No Pedal Edema, Other (R foot w/ small toe amputation. Wound vac is in place, no material in vac. No redness around foot and no odor. Pt reports is painful but better than yesterday.) Neurologic/Psychiatric: Alert, Oriented x3, Normal Mood/Affect Skin: Normal Color, Warm/Dry Lymphatic: No Adenopathy Results/Procedures Lab Laboratory Tests 06/16/21 05:10 Patient resulted labs reviewed. Imaging: Reviewed Imaging Report Assessment/Plan Assessment and Plan Assess & Plan/Chief Complaint R Foot cellulitis Necrotizing fasciits S/P Debreidment and 5th toe amputation -Cultures back + for S. aureus and S. marcescens -Continue ABX -Surgery states she will be ready to go home tomorrow, case management will work to set it up -Continue wound care -Daily labs/watch for signs of infection -Pain meds -PT as can tolerate BETSY -Resolved -Creatine today 1.23 which is continuing to improve T2DM -Continue to manage -Sugars within acceptable range. Pt can discharge tomorrow. Supervisory-Addendum Brief Verification & Attestation Participated in pt care: history, physical Personally performed: exam Care discussed with: Medical Student Procedures: n/a n/a SUSIE GAMBOA DO 06/17/21 0520: Subjective Subjective/Events-last exam Pt doing better Wound vac in place Pain management is going better Likely DC tomorrow but will talk to surgery about that Check meds and labs Review of Systems General: Fatigue, Malaise Musculoskeletal: foot pain (Right side) Objective Exam General Appearance: No Apparent Distress, WD/WN, Chronically ill Respiratory: Lungs Clear, Normal Breath Sounds Cardiovascular: Regular Rate, Rhythm Neurologic/Psychiatric: Alert, Oriented x3 Assessment/Plan Assessment and Plan Assess & Plan/Chief Complaint Wound VAC management Supervisory-Addendum Brief Verification & Attestation Participated in pt care: history, MDM, physical Personally performed: exam, history, MDM, supervision of care Care discussed with: Medical Student Procedures: n/a Results interpretation: Verified all documentation Verification and Attestation of Medical Student E/M Service A medical student performed and documented this service in my presence. I reviewed and verified all information documented by the medical student and made modifications to such information, when appropriate. I personally performed the physical exam and medical decision making. Susie Gamboa, Jun 17, 2021,05:20 NGOC GOMES MED STUDENT Jun 16, 2021 12:06 SUSIE GAMBOA DO Jun 17, 2021 05:20
[2021-06-16] MEDS: ENOXAPARIN 40 MG/0.4 ML (LOVENOX) SYR SC SCH (15:11)
[2021-06-16] MEDS: ACETAMINOPHEN 325 MG TABLET PO PRN ×2 (15:15→21:14)
[2021-06-16 16:00] VITALS: BP 148/66
[2021-06-17] MEDS: VANCOMYCIN 1500 MG/NS 500 ML IVPB IV SCH ×2 (00:04)
[2021-06-17 00:07] VITALS: BP 113/54
[2021-06-17] MEDS: inSUlin ASPART (NovoLOG) 1 UNIT/0.01 ML (CHARGE PER UNIT) SC SCH ×7 (05:11→20:16)
[2021-06-17] MEDS: CATHETER FLUSH 10 ML SYR IV SCH ×3 (05:36→21:29)
[2021-06-17 06:38] LABS: BASOPHILS # (AUTO) 0.1 10^3/uL (0.0-0.1); BASOPHILS % (AUTO) 1 % (0-10); EOSINOPHILS # (AUTO) 0.3 10^3/uL (0.0-0.3); EOSINOPHILS % (AUTO) 6 % (0-10); HEMATOCRIT 26 % (35-52); HEMOGLOBIN 8.1 g/dL (11.5-16.0); LYMPHOCYTES # (AUTO) 1.9 10^3/uL (1.0-4.0); LYMPHOCYTES % (AUTO) 38 % (12-44); MEAN CORPUSCULAR HEMOGLOBIN 30 pg (25-34); MEAN CORPUSCULAR HGB CONC 31 g/dL (32-36); MEAN CORPUSCULAR VOLUME 96 fL (80-99); MONOCYTES # (AUTO) 0.5 10^3/uL (0.0-1.0); MONOCYTES % (AUTO) 10 % (0-12); NEUTROPHILS # (AUTO) 2.3 10^3/uL (1.8-7.8); NEUTROPHILS % (AUTO) 45 % (42-75); PLATELET COUNT 396 10^3/uL (130-400)
[2021-06-17 06:57] LABS: CALCIUM 8.3 MG/DL (8.5-10.1); CREATININE SERUM 1.37 MG/DL (0.60-1.30)
--- NOTE | 2021-06-17 07:15 | Progress Note - Surgery ---
FLACO JAMIL 06/17/21 0715: Subjective Date Seen by a Provider: Jun 17, 2021 Time Seen by a Provider: 06:17 Subjective/Events-last exam Pt reports that she developed some nausea last night. Blood sugar was checked and she was hypoglycemic. States that she was then given some peanut butter and orange juice which helped the nausea some but it is still present. No vomiting or abdominal pain present. Reports that she is not having any foot pain. Tolerating normal diet well. Denies any other concerns when asked. Review of Systems General: No Chills, No Night Sweats HEENT: No Head Aches, No Visual Changes Pulmonary: No Dyspnea, No Cough Cardiovascular: No: Chest Pain, Palpitations Gastrointestinal: Nausea; No: Vomiting, Abdominal Pain Musculoskeletal: No: shoulder pain, back pain, foot pain Neurological: No: Weakness, Numbness Focused Exam Time of Focused Exam: 13:00 Objective Exam Vital Signs Date Time Temp Pulse Resp B/P (MAP) Pulse Ox O2 Delivery O2 Flow Rate FiO2 06/17/21 00:07 36.4 57 18 113/54 (73) 96 Room Air 06/16/21 21:14 36.4 06/16/21 20:55 Room Air 06/16/21 16:00 36.4 64 20 148/66 (93) 96 Room Air 06/16/21 08:33 Room Air 06/16/21 08:00 36.0 67 20 135/74 (94) 95 Room Air I & O 06/17/21 06:59 Intake Total 1370 ml Output Total 1400 ml Balance -30 ml Capillary Refill : Less Than 3 SecondsLess Than 3 Seconds General Appearance: No Apparent Distress, Chronically ill, Obese HEENT: PERRL/EOMI; No Photophobia Neck: Non Tender, Supple Respiratory: Lungs Clear, Normal Breath Sounds, No Respiratory Distress Cardiovascular: Regular Rate, Rhythm, No Murmur, Normal Peripheral Pulses Gastrointestinal: non tender, soft Extremity: Non Tender, No Calf Tenderness, Swelling (Swelling present in rt foot), Other (Wound vac in place on right foot. minimal amount of discharge in the vac collection chamber. foot looks a little swollen but otherwise good) Neurologic/Psychiatric: Alert, Oriented x3, Normal Mood/Affect Skin: Normal Color, Warm/Dry Lymphatic: No Adenopathy (cervical) Results Lab Laboratory Tests 06/16/21 09:26: Glucometer 98 12/15/21 14:40: Glucometer 171H 06/16/21 21:22: Glucometer 176H 06/17/21 05:03: Glucometer 57*L 06/17/21 05:55: White Blood Count 5.0, Red Blood Count 2.69L, Hemoglobin 8.1L, Hematocrit 26L, Mean Corpuscular Volume 96, Mean Corpuscular Hemoglobin 30, Mean Corpuscular Hemoglobin Concent 31L, Red Cell Distribution Width 14.7H, Platelet Count 396, Mean Platelet Volume 11.0, Immature Granulocyte % (Auto) 0, Neutrophils (%) (Auto) 45, Lymphocytes (%) (Auto) 38, Monocytes (%) (Auto) 10, Eosinophils (%) (Auto) 6, Basophils (%) (Auto) 1, Neutrophils # (Auto) 2.3, Lymphocytes # (Auto) 1.9, Monocytes # (Auto) 0.5, Eosinophils # (Auto) 0.3, Basophils # (Auto) 0.1, Immature Granulocyte # (Auto) 0.0, Sodium Level 141, Potassium Level 4.0, Chloride Level 110H, Carbon Dioxide Level 22, Anion Gap 9, Blood Urea Nitrogen 18, Creatinine 1.37H, Estimat Glomerular Filtration Rate 39, BUN/Creatinine Ratio 13, Glucose Level 63L, Calcium Level 8.3L Microbiology 06/09/21 Gram Stain - Final, Complete 06/09/21 Anaerobic Culture - Final, Complete No anaerobes isolated 06/09/21 Surgical Culture - Final, Complete Staphylococcus aureus Serratia marcescens 06/08/21 MRSA Screen - Final, Complete 06/07/21 Blood Culture - Final, Complete No growth Assessment/Plan Assessment/Plan Assessment/Plan Necrotizing Fasciitis of right foot - s/p I&D with debridement on 06/09 and 06/10 Necrotic 5th digit right foot - amputation 06/11 MRSA infection diabetes GERD Head lice CKD 4 Plan Trying to set up home wound VAC and then have pt come in to wound care clinic. Switch to PO antibiotics. Continue pain medications and anti-emetics as needed. According to medicine's note patient is to be discharged today TR MURPHY DO 06/17/21 1004: Subjective Time Seen by a Provider: 09:15 Subjective/Events-last exam Pt seen and examined, states she is ready to go home. Review of Systems Pulmonary: No Dyspnea, No Cough Cardiovascular: No: Chest Pain, Palpitations Gastrointestinal: Nausea; No: Vomiting, Abdominal Pain Musculoskeletal: No: foot pain Objective Exam General Appearance: No Apparent Distress, Chronically ill Respiratory: Lungs Clear, Normal Breath Sounds, No Respiratory Distress Cardiovascular: Regular Rate, Rhythm, No Murmur Gastrointestinal: non tender, soft Extremity: Swelling (Swelling present in rt foot), Other (Wound vac in place on right foot. minimal amount of discharge in the vac collection chamber. foot looks a little swollen but otherwise good) Assessment/Plan Assessment/Plan Assessment/Plan Necrotizing Fasciitis of right foot - s/p I&D with debridement on 06/09 and 06/10 Necrotic 5th digit right foot - amputation 06/11 MRSA infection diabetes GERD Head lice CKD 4 Plan Trying to set up home wound VAC and then have pt come in to wound care clinic. Switch to PO antibiotics. Continue pain medications and anti-emetics as needed. OK to be discharged today from surgery standpoint. Supervisory-Addendum Brief Verification & Attestation Participated in pt care: history, MDM, physical Personally performed: exam, history, MDM, supervision of care Care discussed with: Medical Student Procedures: n/a Verification and Attestation of Medical Student E/M Service A medical student performed and documented this service. I then reviewed and verified all information documented by the medical student and made modifications to such information, when appropriate. I personally performed a physical exam, medical decision making and then discussed any differences between the notes and made revisions as necessary to create one note. Tr Murphy , 06/17/21 , 10:04 FLACO JAMIL Jun 17, 2021 07:15 TR MURPHY DO Jun 17, 2021 10:04
[2021-06-17 08:00] VITALS: BP 132/75
[2021-06-17] MEDS: ENALAPRIL 2.5 MG (VASOTEC) TAB PO SCH (08:53)
[2021-06-17] MEDS: DOCUSATE SODIUM 100 MG (COLACE) CAP PO SCH ×2 (08:53→21:53)
[2021-06-17] MEDS: ACETAMINOPHEN 325 MG TABLET PO PRN (08:53)
[2021-06-17] MEDS: PANTOPRAZOLE 40 MG (PROTONIX) TAB PO SCH ×2 (08:53→21:28)
[2021-06-17] MEDS: SENNOSIDES 8.6 MG (SENOKOT) TAB PO SCH ×2 (08:53→21:54)
[2021-06-17] MEDS: GABAPENTIN 400 MG (NEURONTIN) CAP PO SCH ×2 (08:53→21:28)
--- NOTE | 2021-06-17 12:48 | Progress Note - Hospitalist ---
NGOC GOMES MED STUDENT 06/17/21 1248: Subjective HPI/CC On Admission Date Seen by Provider: Jun 17, 2021 Time Seen by Provider: 08:20 Chantale Salguero is a 65 year old female with PMH HTN, HLD, T2DM on insulin, CKD4, GERD, obesity, who presented with a right foot wound. She stepped on some nails recently. She has a rash on her foot. It is swollen. She has some pain in her foot. She denies fevers. She denies nausea and vomiting. She denies chest pain and shortness of breath. She has never had a cellulitis before. Subjective/Events-last exam Pt is awake and sitting up in bed this morning. She states she did have some nausea at the time but not too bad. She had an episode of hypoglycemia overnight and had to drink juice and chocolate milk to get it back up. She thinks she might be getting a little too much insulin at night. Blood sugar at time of rounding is 67. She states that she is still eating and drinking okay and is not having any issues. She states is has been a few days since her last BM and asks for something to help her go. She states she will not be discharged today and is waiting to get her wound vac. She will set something up with wound care. Review of Systems General: No Chills, No Night Sweats, No Malaise HEENT: No Head Aches, No Visual Changes, No Dysphasia Pulmonary: No Dyspnea, No Cough Cardiovascular: No: Chest Pain, Palpitations, Edema Gastrointestinal: Nausea, Constipation; No: Vomiting, Abdominal Pain, Diarrhea Genitourinary: No Dysuria, No Frequency, No Hematuria Musculoskeletal: foot pain (well controlled); No: leg pain Neurological: No: Weakness, Numbness Focused Exam Time of Focused Exam: 13:00 Objective Exam Vital Signs Vital Signs Date Time Temp Pulse Resp B/P (MAP) Pulse Ox O2 Delivery O2 Flow Rate FiO2 06/17/21 08:00 36.2 60 20 132/75 (94) 94 Room Air 06/13/21 08:47 2.00 Capillary Refill : Less Than 3 SecondsLess Than 3 Seconds General Appearance: No Apparent Distress, WD/WN, Obese HEENT: PERRL/EOMI, Moist Mucous Membranes Neck: Supple Respiratory: Chest Non Tender, Lungs Clear, Normal Breath Sounds, No Accessory Muscle Use Cardiovascular: Regular Rate, Rhythm, No Edema, No Gallop, No JVD, No Murmur, Normal Peripheral Pulses Gastrointestinal: Normal Bowel Sounds, No Organomegaly, No Pulsatile Mass, Non Tender, Soft Rectal: Deferred Extremity: Normal Capillary Refill, Non Tender, No Calf Tenderness, No Pedal Edema, Other (R foot connected to wound vac. Some swelling, no erythema noted. Not really any material in Vac. ) Neurologic/Psychiatric: Alert, Oriented x3, Normal Mood/Affect Skin: Normal Color, Warm/Dry Results/Procedures Lab Laboratory Tests 06/17/21 05:55 Patient resulted labs reviewed. Imaging: Reviewed Imaging Report Assessment/Plan Assessment and Plan Assess & Plan/Chief Complaint R Foot cellulitis Necrotizing fasciits S/P Debreidment and 5th toe amputation -Cultures back + for S. aureus and S. marcescens -Continue ABX -Waiting to get wound vac -Continue wound care -Daily labs/watch for signs of infection -Pain meds -PT as can tolerate BETSY -Resolved -Creatine today 1.37, will continue to monitor T2DM -Continue to manage -Sugars within acceptable range. -If patient has another episode of night time hypoglycemia may look into decreasing insulin Supervisory-Addendum Brief Verification & Attestation Participated in pt care: history, physical Personally performed: exam Care discussed with: Medical Student Procedures: n/a n/a SUSIE GAMBOA DO 06/18/21 0515: Subjective Subjective/Events-last exam Pt doing well No BM for four days so will get aggressive with laxatives Waiting on home wound vac Checked meds and labs Review of Systems General: Fatigue, Malaise Musculoskeletal: foot pain (well controlled) Objective Exam General Appearance: No Apparent Distress, WD/WN, Chronically ill Respiratory: Lungs Clear Cardiovascular: Regular Rate, Rhythm Neurologic/Psychiatric: Alert, Oriented x3 Assessment/Plan Assessment and Plan Assess & Plan/Chief Complaint Supportive care Monitor closely Supervisory-Addendum Brief Verification & Attestation Participated in pt care: history, MDM, physical Personally performed: exam, history, MDM, supervision of care Care discussed with: Medical Student Procedures: n/a Results interpretation: Verified all documentation Verification and Attestation of Medical Student E/M Service A medical student performed and documented this service in my presence. I reviewed and verified all information documented by the medical student and made modifications to such information, when appropriate. I personally performed the physical exam and medical decision making. Susie Gamboa, Jun 18, 2021,05:15 NGOC GOMES MED STUDENT Jun 17, 2021 12:48 SUSIE GAMBOA DO Jun 18, 2021 05:15
[2021-06-17] MEDS: LACTULOSE SYRUP 10GM/15ML (ENULOSE) 30ML UDC PO SCH ×2 (13:15→21:54)
[2021-06-17] MEDS: polyethylene glycoL POWDER 17 GM (MIRALAX) PACK PO SCH ×2 (13:15→21:54)
[2021-06-17] MEDS: SENNA W/DOCUSATE (SENOKOT S) TABLET PO SCH ×2 (13:16→21:54)
[2021-06-17] MEDS: ENOXAPARIN 40 MG/0.4 ML (LOVENOX) SYR SC SCH (15:06)
[2021-06-17 15:45] VITALS: BP 130/75
[2021-06-17 23:11] VITALS: BP 120/69
[2021-06-18 05:57] LABS: BASOPHILS # (AUTO) 0.1 10^3/uL (0.0-0.1); BASOPHILS % (AUTO) 2 % (0-10); EOSINOPHILS # (AUTO) 0.2 10^3/uL (0.0-0.3); EOSINOPHILS % (AUTO) 4 % (0-10); HEMATOCRIT 27 % (35-52); HEMOGLOBIN 8.2 g/dL (11.5-16.0); LYMPHOCYTES # (AUTO) 1.7 10^3/uL (1.0-4.0); LYMPHOCYTES % (AUTO) 32 % (12-44); MEAN CORPUSCULAR HEMOGLOBIN 30 pg (25-34); MEAN CORPUSCULAR HGB CONC 31 g/dL (32-36); MEAN CORPUSCULAR VOLUME 97 fL (80-99); MEAN PLATELET VOLUME 10.9 fL (9.0-12.2); MONOCYTES # (AUTO) 0.4 10^3/uL (0.0-1.0); MONOCYTES % (AUTO) 7 % (0-12); NEUTROPHILS % (AUTO) 55 % (42-75); PLATELET COUNT 383 10^3/uL (130-400); WHITE BLOOD COUNT 5.5 10^3/uL (4.3-11.0)
[2021-06-18 06:17] LABS: ALBUMIN 2.6 GM/DL (3.2-4.5); POTASSIUM 4.5 MMOL/L (3.6-5.0)
[2021-06-18 06:18] LABS: CALCIUM 8.3 MG/DL (8.5-10.1)
[2021-06-18 06:19] LABS: TOTAL PROTEIN 5.8 GM/DL (6.4-8.2)
[2021-06-18 06:21] LABS: BILIRUBIN,TOTAL 0.2 MG/DL (0.1-1.0)
[2021-06-18 06:23] LABS: CREATININE SERUM 1.32 MG/DL (0.60-1.30)
[2021-06-18 06:25] LABS: BILIRUBIN,DIRECT 0.1 MG/DL (0.0-0.3); BILIRUBIN,INDIRECT 0.1 MG/DL
[2021-06-18] MEDS: inSUlin ASPART (NovoLOG) 1 UNIT/0.01 ML (CHARGE PER UNIT) SC SCH ×4 (06:45→12:19)
[2021-06-18] MEDS: CATHETER FLUSH 10 ML SYR IV SCH ×2 (07:23→12:19)
[2021-06-18 08:00] VITALS: BP 112/67
[2021-06-18] MEDS ORDERED: TROUGH ORDER-PHARMACY XX SCH (10:00)
[2021-06-18] MEDS: PANTOPRAZOLE 40 MG (PROTONIX) TAB PO SCH (10:09)
[2021-06-18] MEDS: ENALAPRIL 2.5 MG (VASOTEC) TAB PO SCH (10:09)
[2021-06-18] MEDS: GABAPENTIN 400 MG (NEURONTIN) CAP PO SCH (10:09)
[2021-06-18] MEDS: VANCOMYCIN 1500 MG/NS 500 ML IVPB IV SCH ×2 (12:19)
[2021-06-18] MEDS: SENNOSIDES 8.6 MG (SENOKOT) TAB PO SCH (12:25)
[2021-06-18] MEDS ORDERED: LACT20SO2 PO (12:27)
[2021-06-18] MEDS ORDERED: OXC5T PO (12:27)
[2021-06-18] MEDS ORDERED: SENN1TAB76 PO (12:27)
--- NOTE | 2021-06-18 12:28 | Discharge Summary ---
Discharge Summary Hospital Course Was the Problem List Reviewed?: Yes Problems/Dx: (1) Necrotizing fasciitis of ankle and foot Status: Acute (2) Cellulitis Status: Acute Qualifiers: Qualified Codes: L03.115 - Cellulitis of right lower limb (3) Abscess Status: Acute (4) T2DM (type 2 diabetes mellitus) Status: Chronic Qualifiers: Qualified Codes: E11.628 - Type 2 diabetes mellitus with other skin co mplications; Z79.4 - snf (current) use of insulin (5) Acute kidney injury superimposed on chronic kidney disease Status: Acute Hospital Course Date of Admission: Jun 09, 2021 at 14:20 Admission Diagnosis : Family Physician/Provider: Usman Butler DO Date of Discharge: 06/18/21 Discharge Diagnosis: Sepsis, right foot cellulitis with abscess Hospital Course: Hospital Course: Pt had a lengthy hospital course for ten days. She was admitted for right foot cellulitis and abcess, required debridement and wound vac placement. IV antibiotics maintained for MRSA and serratia. Overall she is doing well enough. Bowel function returned back to normal and she was deemed stale for DC with a portable wound vac and follow up with wound care twice weekly. Labs and Pending Lab Test: Laboratory Tests 06/17/21 14:41: Glucometer 194H 06/17/21 19:59: Glucometer 167H 06/18/21 05:20: White Blood Count 5.5, Red Blood Count 2.74L, Hemoglobin 8.2L, Hematocrit 27L, Mean Corpuscular Volume 97, Mean Corpuscular Hemoglobin 30, Mean Corpuscular Hemoglobin Concent 31L, Red Cell Distribution Width 14.8H, Platelet Count 383, Mean Platelet Volume 10.9, Immature Granulocyte % (Auto) 1, Neutrophils (%) (Auto) 55, Lymphocytes (%) (Auto) 32, Monocytes (%) (Auto) 7, Eosinophils (%) (Auto) 4, Basophils (%) (Auto) 2, Neutrophils # (Auto) 3.0, Lymphocytes # (Auto) 1.7, Monocytes # (Auto) 0.4, Eosinophils # (Auto) 0.2, Basophils # (Auto) 0.1, Immature Granulocyte # (Auto) 0.0, Sodium Level 140, Potassium Level 4.5, Chl oride Level 109H, Carbon Dioxide Level 23, Anion Gap 8, Blood Urea Nitrogen 17, Creatinine 1.32H, Estimat Glomerular Filtration Rate 40, BUN/Creatinine Ratio 13, Glucose Level 103, Calcium Level 8.3L, Total Bilirubin 0.2, Direct Bilirubin 0.1, Indirect Bilirubin 0.1, Aspartate Amino Transf (AST/SGOT) 17, Alanine Aminotransferase (ALT/SGPT) 12, Alkaline Phosphatase 39L, Total Protein 5.8L, Albumin 2.6L 06/18/21 09:43: Glucometer 137H 06/18/21 11:00: Vancomycin Level Trough 15.2 Microbiology 06/09/21 Gram Stain - Final, Complete 06/09/21 Anaerobic Culture - Final, Complete No anaerobes isolated 06/09/21 Surgical Culture - Final, Complete Staphylococcus aureus Serratia marcescens 06/08/21 MRSA Screen - Final, Complete 06/07/21 Blood Culture - Final, Complete No growth Home Meds Active Stool Softener-Laxative Tablet (Sennosides/Docusate Sodium) 1 Each Tablet 2 Ea PO BID Lactulose 20 Gm/30 Ml Solution 10 Gm PO BID PRN Bactrim Ds Tablet (Sulfamethoxazole/Trimethoprim) 1 Each Tablet 1 Each PO BID 14 Days Reported Tylenol Extra Strength (Acetaminophen) 500 Mg Tablet 500 Mg PO Q6H PRN Vitamin D2 (Ergocalciferol (Vitamin D2)) 1,250 Mcg Capsule 1,250 Mcg PO MON [Aggrenox] 25-200 Cap 1 Ea PO BID Victoza 3-Rhett (Liraglutide) 0.6 Mg/0.1 Ml Pen.injctr 1.8 Mg SQ DAILY Tresiba Flextouch U-100 (Insulin Degludec) 100 Unit/1 Ml Insuln.pen 45 Unit SQ DAILY Pantoprazole Sodium 40 Mg Tablet.dr 40 Mg PO BID Gabapentin 400 Mg Capsule 400 Mg PO BID Enalapril Maleate 2.5 Mg Tablet 2.5 Mg PO DAILY Assessment/Pt Instructions PCP in 1 week Wound care Discharge Planning: <30 minutes discharge planning Discharge Instructions Activity as Tolerated: Yes Discharge Physical Examination Vital Signs Vital Signs Date Time Temp Pulse Resp B/P (MAP) Pulse Ox O2 Delivery O2 Flow Rate FiO2 06/18/21 10:13 64 06/18/21 08:00 37.1 18 112/67 (82) 95 Room Air 06/13/21 08:47 2.00 General Appearance: No Apparent Distress, WD/WN, Chronically ill Allergies: Coded Allergies: No Known Drug Allergies (Unverified , 12/21/20) Discharge Summary Date of Admission Jun 09, 2021 at 14:20 Date of Discharge Discharge Date: Jun 18, 2021 Admission Diagnosis Cellulitis Discharge Diagnosis Supportive care Monitor closely (1) Necrotizing fasciitis of ankle and foot Status: Acute (2) Cellulitis Status: Acute Qualifiers: Qualified Codes: L03.115 - Cellulitis of right lower limb (3) Abscess Status: Acute (4) T2DM (type 2 diabetes mellitus) Status: Chronic Qualifiers: Qualified Codes: E11.628 - Type 2 diabetes mellitus with other skin complications; Z79.4 - bpo specialist (current) use of insulin (5) Acute kidney injury superimposed on chronic kidney disease Status: Acute NEY GAMBOA DO Jun 18, 2021 12:28
--- NOTE | 2021-06-18 13:56 | Progress Note ---
NGOC GOMES MED STUDENT 06/18/21 1356: Progress Note Mrs. Salguero is a 65 yo female with history of diabetes that presented to [facility] ER per her pcp due to stepping on a nail about 4-5 days prior. She states that she removed the nail right away and noticed redness and pain around the area that proceeded to ascend up her R foot. She was admitted to [facility] along with a surgical consult for soft tissue infection as well as BETSY. She underwent I&D on 06/09 and two debreidments on 06/10 and 06/11. She also had her R 5th toe amputated. She underwent these procedures due to cyst and nectotizing fasciitis. After surigcal procedures she was on wound vac with ABX and continued to improve each day. She did not have any complications during her stay except for an episode of hypoglycemia overnight that resolved. She was discharged on 06/18 with a home wound vac and was set up with wound care through [facility]. Supervisory-Addendum Brief Verification & Attestation Participated in pt care: history, physical Personally performed: exam Care discussed with: Medical Student Procedures: n/a N/A SUSIE GAMBOA DO 06/19/21 0626: Supervisory-Addendum Brief Verification & Attestation Participated in pt care: history, MDM, physical Personally performed: exam, history, MDM, supervision of care Care discussed with: Medical Student Procedures: n/a Results interpretation: Verified all documentation Verification and Attestation of Medical Student E/M Service A medical student performed and documented this service in my presence. I reviewed and verified all information documented by the medical student and made modifications to such information, when appropriate. I personally performed the physical exam and medical decision making. Susie Gamboa, Jun 19, 2021,06:26 NGOC GOMES MED STUDENT Jun 18, 2021 13:56 SUSIE GAMBOA DO Jun 19, 2021 06:26
[2021-06-18 15:17] VITALS: BP 112/67
--- NOTE | 2021-06-23 05:01 | Physician Query Clarification ---
PQ-Present on Admission Admission/Discharge Admission Date: Jun 09, 2021 at 14:20 Discharge Date: Jun 18, 2021 at 15:17 Dr. MARTHA GABRIEL MD History&risk factors: 65 y/o female patient presented with right foot cellulitis with abscess, sepsis was documented in medical record. Hand P, 06/08: Cellulitis, abscess, DM type II, CKD 4. Progress notes, 06/11: Necrotizing fascitis, cellulitis, type II DM. Progress notes, 06/17: Right foot cellulitis, necrotizing fascitis, type II DM. Discharge summary, 06/18: Sepsis, right foot cellulitis. Clinical indicators:WBC-10.3, lactic acid-0.83, anion gap-10, pulse-74 on admission. Treatment: IV antibiotics, debridement. Question: Sepsis was documented in discharge summary, 06/18. Can you specify if this condition was present on admission? Please document a response in Progress Note or Discharge Summary. 1. Yes - Condition was present at the time of inpatient admission. 2. No - Condition was not present at the time of inpatient admission and it developed during the inpatient stay. 3. W - Provider is unable to clinically determine whether condition was present on admission or not. 4. Other [please specify] PHYSICIAN RESPONSE Condition was Present on Admit: Other, specify below Explanation of clincal finding Sepsis not present Please remember a lack of response to the above will prompt a phone page by CDI/Coding staff. In responding to this query, please exercise your independent professional judgment. The purpose of this communication is to more accurately reflect the complexity of your patients condition. The fact that a question is asked does not imply that any particular answer is desired or expected. Thank you for your timely response to this clarification. Requestors name: [ ] Phone # [ ] THIS PHYSICIAN QUERY FORM IS A PERMANENT PART OF THE MEDICAL RECORD JOSE SARAH Jun 23, 2021 05:01 NERY THOMAS MD Jul 02, 2021 21:38
--- NOTE | 2021-06-23 05:11 | Physician Query Clarification ---
PQ-Link Manifestation-Etiology Admission/Discharge Admission Date: Jun 09, 2021 at 14:20 Discharge Date: Jun 18, 2021 at 15:17 Dr.REDMAN NERY MONTOYA The medical record reflects the following clinical scenario: History/Risk Factors: 65 y/o female patient admitted with right foot cellulitis with abscess, diabetes mellitus type II was documented in medical record. Hand P, 06/08: Cellulitis, type II DM, CKD 4. Progress notes, 06/11: Cellulitis, necrotizing fascitis, type II diabetes. Clinical Findings: WBC-10.3, glucose-209 H. Treatment:IV Vancomycin, debridement of right foot, Insulin. Question: Can you specify if the Cellulitis is due to/associated with diabetes? Please document a response in the Progress Note or Discharge Summary. 1. Yes - Cellulitis is due to/associated with diabetes. 2. No - Cellulitis is not due to/associated with diabetes. 3. Other, with explanation of the clinical findings. 4. Clinically undetermined, no explanation for the clinical findings. PHYSICIAN RESPONSE Manifestation due to/assoic: Yes Please remember a lack of response to the above will prompt a phone page by CDI/Coding staff. In responding to this query, please exercise your independent professional judgment. The purpose of this communication is to more accurately reflect the complexity of your patients condition. The fact that a question is asked does not imply that any particular answer is desired or expected. Thank you for your timely response to this clarification. Requestors name: [ ] Phone # [ ] THIS PHYSICIAN QUERY FORM IS A PERMANENT PART OF THE MEDICAL RECORD JOSE SARAH Jun 23, 2021 05:11 NERY THOMAS MD Jul 02, 2021 21:40
== END 2021-06-18 15:17 | disposition home or self-care (01) | DRG 616 ==
LOC: EDUNIT# 15:54 → ER 15:56 → 4TH 17:55 → UNDOADMOB 17:55 → 4TH 21:00 → INTOOBSV 06-09 14:20 → OBSVTOIN 06-09 14:20 → UNDODISIN 06-18 15:17
PROVIDERS: ADMIT Internal Medicine; ATTEND Internal Medicine
PROC: 0JBQ0ZZ Excision of Right Foot Subcutaneous Tissue and Fascia, Open Approach (ICD-10-PCS; principal; 2021-06-09 11:30)
PROC: 0JBQ0ZZ Excision of Right Foot Subcutaneous Tissue and Fascia, Open Approach (ICD-10-PCS; 2021-06-10)
PROC: 0Y6X0Z0 Detachment at Right 5th Toe, Complete, Open Approach (ICD-10-PCS; 2021-06-11)
DX: E11.628 Type 2 diabetes mellitus with other skin complications (principal); M72.6 Necrotizing fasciitis; L03.115 Cellulitis of right lower limb; L02.415 Cutaneous abscess of right lower limb; N18.4 Chronic kidney disease, stage 4 (severe); N17.9 Acute kidney failure, unspecified; E11.22 Type 2 diabetes mellitus with diabetic chronic kidney disease; I12.9 Hypertensive chronic kidney disease with stage 1 through stage 4 chronic kidney disease, or unspecified chronic kidney disease; K21.9 Gastro-esophageal reflux disease without esophagitis; E66.9 Obesity, unspecified; Z79.4 Long term (current) use of insulin; E11.40 Type 2 diabetes mellitus with diabetic neuropathy, unspecified; Z96.651 Presence of right artificial knee joint; Z86.73 Personal history of transient ischemic attack (TIA), and cerebral infarction without residual deficits; M19.90 Unspecified osteoarthritis, unspecified site; Z87.891 Personal history of nicotine dependence; E78.5 Hyperlipidemia, unspecified; Z79.899 Other long term (current) drug therapy; Z93.0 Tracheostomy status; E11.51 Type 2 diabetes mellitus with diabetic peripheral angiopathy without gangrene
CPT/HCPCS: 36415; 73630; 80048; 80053; 80076; 80202; 82947; 83605; 84145; 85007; 85025; 85027; 86141; 87040; 87070; 87075; 87077; 87081; 87186; 87205; 88304; 88305; 88311; 90715; G0378

== ENCOUNTER → 2021-06-21 | Outpatient (CLI) | payer MEDICARE, OTHER ==
[~2021-06-21] MED LIST changes: +ACET-2267 PO; +AGGRENOX PO; +ERGO1250 PO; +LACT20SO2 PO; +OXC5T PO; +SENN1TAB76 PO; +SULF1TAB38 PO
== END ==
LOC: WOUNDCARE 14:24
PROVIDERS: ATTEND Family Medicine
DX: E11.621 Type 2 diabetes mellitus with foot ulcer (principal); L97.514 Non-pressure chronic ulcer of other part of right foot with necrosis of bone; L03.115 Cellulitis of right lower limb; E11.65 Type 2 diabetes mellitus with hyperglycemia; N18.32 Chronic kidney disease, stage 3b; B95.62 Methicillin resistant Staphylococcus aureus infection as the cause of diseases classified elsewhere; M72.6 Necrotizing fasciitis; L02.611 Cutaneous abscess of right foot
CPT/HCPCS: 99212

== ENCOUNTER → 2021-06-21 | Outpatient (CLI) | payer MEDICARE, OTHER ==
[2021-06-21 16:58] LABS: ALBUMIN 3.5 GM/DL (3.2-4.5)
[2021-06-21 16:59] LABS: POTASSIUM 4.1 MMOL/L (3.6-5.0)
[2021-06-21 17:00] LABS: CALCIUM 9.1 MG/DL (8.5-10.1)
[2021-06-21 17:01] LABS: TOTAL PROTEIN 7.3 GM/DL (6.4-8.2)
[2021-06-21 17:03] LABS: BILIRUBIN,TOTAL 0.2 MG/DL (0.1-1.0)
[2021-06-21 17:05] LABS: CREATININE SERUM 1.64 MG/DL (0.60-1.30)
== END ==
LOC: LAB 16:27
PROVIDERS: ATTEND Family Medicine
DX: L97.514 Non-pressure chronic ulcer of other part of right foot with necrosis of bone (principal); E11.621 Type 2 diabetes mellitus with foot ulcer; L03.115 Cellulitis of right lower limb; E11.65 Type 2 diabetes mellitus with hyperglycemia; E11.22 Type 2 diabetes mellitus with diabetic chronic kidney disease; N18.32 Chronic kidney disease, stage 3b; B95.62 Methicillin resistant Staphylococcus aureus infection as the cause of diseases classified elsewhere
CPT/HCPCS: 36415; 80053; 83036

== ENCOUNTER → 2021-06-28 | Outpatient (CLI) | payer MEDICARE, OTHER | LOC: WOUNDCARE 12:52 | PROVIDERS: ATTEND Family Medicine | DX: L97.514 Non-pressure chronic ulcer of other part of right foot with necrosis of bone (principal); E11.621 Type 2 diabetes mellitus with foot ulcer; L03.115 Cellulitis of right lower limb; E11.65 Type 2 diabetes mellitus with hyperglycemia; E11.22 Type 2 diabetes mellitus with diabetic chronic kidney disease; N18.32 Chronic kidney disease, stage 3b; B95.62 Methicillin resistant Staphylococcus aureus infection as the cause of diseases classified elsewhere; M72.6 Necrotizing fasciitis; L02.611 Cutaneous abscess of right foot; E11.52 Type 2 diabetes mellitus with diabetic peripheral angiopathy with gangrene | CPT/HCPCS: 11042; 11045; G0463 ==

== ENCOUNTER → 2021-07-05 | Outpatient (CLI) | payer MEDICARE, OTHER ==
[~2021-07-05] MED LIST changes: +ONDA4TAB11 PO
== END ==
LOC: WOUNDCARE 12:48
PROVIDERS: ATTEND Family Medicine
DX: L97.514 Non-pressure chronic ulcer of other part of right foot with necrosis of bone (principal); E11.621 Type 2 diabetes mellitus with foot ulcer; L03.115 Cellulitis of right lower limb; E11.65 Type 2 diabetes mellitus with hyperglycemia; E11.22 Type 2 diabetes mellitus with diabetic chronic kidney disease; N18.32 Chronic kidney disease, stage 3b; B95.62 Methicillin resistant Staphylococcus aureus infection as the cause of diseases classified elsewhere; M72.6 Necrotizing fasciitis; L02.611 Cutaneous abscess of right foot; I89.0 Lymphedema, not elsewhere classified; E11.52 Type 2 diabetes mellitus with diabetic peripheral angiopathy with gangrene
CPT/HCPCS: 11042; 11045; G0463

== ENCOUNTER 2021-07-08 14:11 | Emergency (ER) | payer MEDICARE, OTHER ==
[~2021-07-08] VITALS: Ht 162 cm; Wt 76.0 kg
[~2021-07-08 14:11] MED LIST changes: -ONDA4TAB11 PO
[2021-07-08] MEDS ORDERED: ONDANSETRON 4 MG/2 ML (SDV) Z0FRAN IVP ONE (14:45)
[2021-07-08] MEDS ORDERED: NS IV 1000 ML 1,000 ML IV SCH (14:45)
--- NOTE | 2021-07-08 14:45 | ED Abdominal Pain ---
General Chief Complaint: Abdominal/GI Problems Stated Complaint: N/V Source of Information: Patient Exam Limitations: No Limitations (POWER JHAVERI) History of Present Illness Date Seen by Provider: Jul 08, 2021 Time Seen by Provider: 14:41 Initial Comments Patient is a 65-year-old female presents ED with vomiting and nausea. Symptoms started last night. She reports 10+ episodes of nonbilious vomiting. Denies of any blood in her vomit. No diarrhea. She reports upper abdominal discomfort with burning sensation to her chest this morning. Her with similar symptoms that developed a few days ago. She denies any fever, cough, headache, dizziness. She states she is urinating but not able to eat or drink. She states she was recently admitted to the hospital with cellulitis and surgical debridement to her right foot. Currently being managed by wound care. Currently on doxycycline. Patient denies of dysuria, fever, headache, dyspnea, cough, headache (POWER JHAVERI) Allergies and Home Medications Allergies Coded Allergies: No Known Drug Allergies (Unverified , 12/21/20) Patient Home Medication List Home Medication List Reviewed: Yes (POWER JHAVERI) Acetaminophen (Tylenol Extra Strength) 500 Mg Tablet, 500 MG PO Q6H PRN for PAIN-MILD (1-4), (Reported) Entered as Reported by: JULIANA GARNICA on 06/08/21 1155 Enalapril Maleate (Enalapril Maleate) 2.5 Mg Tablet, 2.5 MG PO DAILY, (Reported) Entered as Reported by: MARK XIAO on 06/30/17 1419 Ergocalciferol (Vitamin D2) (Vitamin D2) 1,250 Mcg Capsule, 1,250 MCG PO MON, (Reported) Entered as Reported by: JULIANA GARNICA on 06/08/21 1155 Gabapentin (Gabapentin) 400 Mg Capsule, 400 MG PO BID, (Reported) Entered as Reported by: MARK XIAO on 06/30/17 1431 Insulin Degludec (Tresiba Flextouch U-100) 100 Unit/1 Ml Insuln.pen, 45 UNIT SQ DAILY, (Reported) Entered as Reported by: TIANA WALTON on 02/15/18 1009 Lactulose (Lactulose) 20 Gm/30 Ml Solution, 10 GM PO BID PRN for CONSTIPATION- 1ST LINE Prescribed by: NEY GAMBOA on 06/18/21 1227 Liraglutide (Victoza 3-Rhett) 0.6 Mg/0.1 Ml Pen.injctr, 1.8 MG SQ DAILY, (Reported) Entered as Reported by: CHRISTIAN VILLEGAS on 12/21/20 1015 Ondansetron (Ondansetron Odt) 4 Mg Tab.rapdis, 4 MG PO Q6H Prescribed by: XU LOVETT on 07/08/21 1545 Oxycodone Hcl (Oxyir Tablet) 5 Mg Tab, 2.5-5 MG PO Q4H PRN for PAIN MODERATE- SEVERE Prescribed by: NEY GAMBOA on 06/18/21 1227 Pantoprazole Sodium (Pantoprazole Sodium) 40 Mg Tablet.dr, 40 MG PO BID, (Reported) Entered as Reported by: TIANA WALTON on 02/15/18 1009 Sennosides/Docusate Sodium (Stool Softener-Laxative Tablet) 1 Each Tablet, 2 EA PO BID Prescribed by: NEY GAMBOA on 06/18/21 1227 Sulfamethoxazole/Trimethoprim (Bactrim Ds Tablet) 1 Each Tablet, 1 EACH PO BID Prescribed by: NERY THOMAS on 06/08/21 1200 [Aggrenox] 25-200 CAP, 1 EA PO BID, (Reported) Entered as Reported by: JULIANA GARNICA on 06/08/21 1155 Review of Systems Review of Systems Constitutional: No chills, No diaphoresis, No dizziness, No fever, No malaise EENTM: No Blurred Vision, No Double Vision Respiratory: Denies Cough, Denies Orthopnea, Denies Shortness of Air, Denies SOA With Exertion Cardiovascular: Denies Chest Pain Gastrointestinal: Abdominal Pain; Denies Diarrhea, Denies Difficulty Swallowing; Vomiting Genitourinary: Denies Discharge Musculoskeletal: No back pain, No gout, No joint pain Skin: change in color (POWER JHAVERI) All Other Systems Reviewed Negative Unless Noted: Yes (POWER JHAVERI) Past Cmlnzur-Bnhisk-Zaapgy Hx Immunizations Up To Date Tetanus Booster (TDap): Less than 5yrs First/Initial COVID19 Vaccinat: 10/9/21 Second COVID19 Vaccination Kevin: 05/08/21 Third COVID19 Vaccination Date: 04/10/21 (POWER JHAVERI) Seasonal Allergies Seasonal Allergies: Yes (POWER JHAVERI) Past Medical History Surgery/Hospitalization HX: PMH: DM-INSULIN DEP, NEUROPATHY, HTN SX: GALLBLADDER, TUBAL, Surgeries: Yes (rt leg stents, ABSCESS ON BUTTOCKS X3 (JUN 2017), GE juction tightening) Gallbladder, Orthopedic, Tubal Ligation Respiratory: No Currently Using CPAP: No Currently Using BIPAP: No Cardiac: Yes Hypertension Neurological: Yes (STROKE 30 YEARS APPROX.) Neuropathy, TIA 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 Disorders: No PHARMACIST History: Tubal Ligation Sexually Transmitted Disease: No HIV/AIDS: No Genitourinary: Yes Renal Failure Gastrointestinal: Yes Gastroesophageal Reflux, Gall Bladder Disease Musculoskeletal: Yes Arthritis, Fractures Endocrine: Yes Diabetes, Insulin dep HEENT: No Loss of Vision: Right Hearing Impairment: Hard of Hearing Cancer: No Psychosocial: No Integumentary: No Blood Disorders: No Adverse Reaction/Blood Tranf: No (N/A) (POWER JHAVERI) Family Medical History Patient reports no known family medical history. Heart Disease, Cancer, Diabetes, Hypertension, Vascular Disease (POWER JHAVERI) Physical Exam Vital Signs Vital Signs - First Documented 07/08/21 14:25 Temp 36.3 Pulse 99 Resp 16 B/P (MAP) 145/97 (113) Pulse Ox 99 O2 Delivery Room Air (MARIYA CHAVEZ MD) Vital Signs Capillary Refill : (POWER JHAVERI) Height/Weight/BMI Height: 5'4.00" Weight: 205lbs. 9.0oz. 93.972173ap; 30.06 BMI Method:Stated General Appearance: WD/WN, no apparent distress HEENT: PERRL/EOMI, normal ENT inspection, TMs normal, pharynx normal Neck: non-tender, full range of motion, supple Respiratory: chest non-tender, lungs clear, normal breath sounds, no respiratory distress Cardiovascular: regular rate, rhythm, no edema, no gallop, no JVD Gastrointestinal: normal bowel sounds, soft, no organomegaly, no pulsatile mass, abnormal bowel sounds, other (Epigastric tenderness on palpation. Normal bowel sounds throughout. No rebound or guarding) Extremities: normal range of motion, non-tender, normal inspection, no pedal edema Back: normal inspection, no CVA tenderness (POWER JHAVERI) Progress/Results/Core Measures Results/Orders Lab Results Laboratory Tests Test 07/08/21 14:35 07/08/21 14:37 07/08/21 14:40 07/08/21 14:45 Range/Units White Blood Count 12.1 H 4.3-11.0 10^3/uL Red Blood Count 4.11 3.80-5.11 10^6/uL Hemoglobin 12.4 11.5-16.0 g/dL Hematocrit 39 35-52 % Mean Corpuscular Volume 94 80-99 fL Mean Corpuscular Hemoglobin 30 25-34 pg Mean Corpuscular Hemoglobin Concent 32 32-36 g/dL Red Cell Distribution Width 14.5 10.0-14.5 % Platelet Count 269 130-400 10^3/uL Mean Platelet Volume 12.5 H 9.0-12.2 fL Immature Granulocyte % (Auto) 1 % Neutrophils (%) (Auto) 81 H 42-75 % Lymphocytes (%) (Auto) 13 12-44 % Monocytes (%) (Auto) 4 0-12 % Eosinophils (%) (Auto) 0 0-10 % Basophils (%) (Auto) 1 0-10 % Neutrophils # (Auto) 9.8 H 1.8-7.8 10^3/uL Lymphocytes # (Auto) 1.6 1.0-4.0 10^3/uL Monocytes # (Auto) 0.5 0.0-1.0 10^3/uL Eosinophils # (Auto) 0.0 0.0-0.3 10^3/uL Basophils # (Auto) 0.1 0.0-0.1 10^3/uL Immature Granulocyte # (Auto) 0.1 0.0-0.1 10^3/uL Sodium Level 138 135-145 MMOL/L Potassium Level 4.0 3.6-5.0 MMOL/L Chloride Level 101 98-107 MMOL/L Carbon Dioxide Level 26 21-32 MMOL/L Anion Gap 11 5-14 MMOL/L Blood Urea Nitrogen 31 H 7-18 MG/DL Creatinine 1.62 H 0.60-1.30 MG/DL Estimat Glomerular Filtration Rate 32 BUN/Creatinine Ratio 19 Glucose Level 112 H 70-105 MG/DL Calcium Level 9.5 8.5-10.1 MG/DL Corrected Calcium 9.6 8.5-10.1 MG/DL Total Bilirubin 0.3 0.1-1.0 MG/DL Aspartate Amino Transf (AST/SGOT) 14 5-34 U/L Alanine Aminotransferase (ALT/SGPT) 9 0-55 U/L Alkaline Phosphatase 53 40-136 U/L Total Protein 8.1 6.4-8.2 GM/DL Albumin 3.9 3.2-4.5 GM/DL Lipase 59 8-78 U/L Influenza Type A Antigen NEGATIVE NEGATIVE Influenza Type B Antigen NEGATIVE NEGATIVE SARS-CoV-2 RNA (RT-PCR) Negative Negative Test 07/08/21 15:10 Range/Units (MARIYA CHAVEZ MD) Medications Given in ED Current Medications Medications Dose Ordered Sig/Nhan Route Start Time Stop Time Status Last Admin Dose Admin Ondansetron HCl 4 mg ONCE ONCE IVP 07/08/21 14:45 07/08/21 14:46 DC 07/08/21 14:53 4 MG Ondansetron HCl 4 mg ONCE ONCE PO 07/08/21 16:15 07/08/21 16:16 DC 07/08/21 16:17 4 MG (MARIYA CHAVEZ MD) Vital Signs/I&O 07/08/21 07/08/21 14:25 15:56 Temp 36.3 Pulse 99 89 Resp 16 16 B/P (MAP) 145/97 (113) 154/48 Pulse Ox 99 98 O2 Delivery Room Air Room Air (MARIYA CHAVEZ MD) Departure Communication (PCP) Patient on arrival requesting IV fluids. She is concerned that her gave her an infection. Patient is in no acute distress. She did vomit here in the ED twice. She states she has been vomiting since last night. Had burning in her chest this morning with the vomiting. She refused EKG. Patient on arrival with no upper abdominal discomfort. She reports body aches, fatigue and weak ness. Able to urinate without difficulties. Denies of any current chest pain, shortness of breath or cough. Patient Covid and influenza negative. She states her has similar symptoms for a longer duration. Patient was given a liter fluid, Zofran with significant improvement. tolerate PO challenges. Lab work showed slightly elevated white blood count. Chronic kidney disease with no acute changes. Electrolytes unremarkable. Liver enzymes unremarkable. Patient was observed here in the ED. Reassessed without any acute abdominal tenderness. Patient urinated here in the ED. Tolerating p.o. fluids. She is requesting to be discharged. This appears to be viral in nature. She was given Zofran at discharge. If worsening symptoms show any return to back to ED such as severe abdominal pain, uncontrolled vomiting, chest pain. (POWER JHAVERI) Impression Primary Impression: Vomiting Disposition: HOME, SELF-CARE Condition: Stable Departure-Patient Inst. Decision time for Depature: 15:44 (POWER JHAVERI) Referrals: NATHAN WILKS DO (PCP/Family) Primary Care Physician Patient Instructions: Nausea and Vomiting, Adult (DC) Scripts Ondansetron (Ondansetron Odt) 4 Mg Tab.rapdis 4 MG PO Q6H for Nausea, #10 TAB Prov: POWER JHAVERI 07/08/21 ATTENDING PHYSICIAN NOTE: I was physically present as attending physician in the emergency department during the care of this patient, but I was not directly involved in the decision making or delivery of care for this patient. (MARIYA CHAVEZ MD) POWER JHAVERI Jul 08, 2021 14:45 MARIYA CHAVEZ MD Jul 08, 2021 20:02
[2021-07-08 14:48] LABS: BASOPHILS # (AUTO) 0.1 10^3/uL (0.0-0.1); BASOPHILS % (AUTO) 1 % (0-10); EOSINOPHILS % (AUTO) 0 % (0-10); HEMATOCRIT 39 % (35-52); HEMOGLOBIN 12.4 g/dL (11.5-16.0); LYMPHOCYTES # (AUTO) 1.6 10^3/uL (1.0-4.0); LYMPHOCYTES % (AUTO) 13 % (12-44); MEAN CORPUSCULAR HEMOGLOBIN 30 pg (25-34); MEAN CORPUSCULAR HGB CONC 32 g/dL (32-36); MEAN CORPUSCULAR VOLUME 94 fL (80-99); MEAN PLATELET VOLUME 12.5 fL (9.0-12.2); MONOCYTES # (AUTO) 0.5 10^3/uL (0.0-1.0); MONOCYTES % (AUTO) 4 % (0-12); NEUTROPHILS # (AUTO) 9.8 10^3/uL (1.8-7.8); NEUTROPHILS % (AUTO) 81 % (42-75); PLATELET COUNT 269 10^3/uL (130-400); WHITE BLOOD COUNT 12.1 10^3/uL (4.3-11.0)
[2021-07-08 14:52] LABS: ALBUMIN 3.9 GM/DL (3.2-4.5)
[2021-07-08 14:54] LABS: CALCIUM 9.5 MG/DL (8.5-10.1)
[2021-07-08 14:55] LABS: TOTAL PROTEIN 8.1 GM/DL (6.4-8.2)
[2021-07-08 14:57] LABS: BILIRUBIN,TOTAL 0.3 MG/DL (0.1-1.0)
[2021-07-08 14:58] LABS: CREATININE SERUM 1.62 MG/DL (0.60-1.30)
[2021-07-08] MEDS ORDERED: ONDA4TAB11 PO (15:45)
[2021-07-08 15:56] VITALS: BP 154/48
[2021-07-08] MEDS ORDERED: ONDANSETRON 4 MG (ZOFRAN) ORAL DISSOLVE TAB PO ONE (16:15)
== END 2021-07-08 15:56 | disposition home or self-care (01) ==
LOC: EDUNIT# 14:11 → ER 14:13
DX: R11.2 Nausea with vomiting, unspecified (principal); I10 Essential (primary) hypertension; E11.9 Type 2 diabetes mellitus without complications; K21.9 Gastro-esophageal reflux disease without esophagitis; Z20.822 Contact with and (suspected) exposure to COVID-19; Z86.73 Personal history of transient ischemic attack (TIA), and cerebral infarction without residual deficits; Z79.4 Long term (current) use of insulin; Z79.899 Other long term (current) drug therapy
CPT/HCPCS: 36415; 80053; 83690; 85025; 87635; 87636; 87804; 99283

== ENCOUNTER → 2021-07-12 | Outpatient (CLI) | payer MEDICARE, OTHER ==
[~2021-07-12] MED LIST changes: +ONDA4TAB11 PO
== END ==
LOC: WOUNDCARE 10:25
PROVIDERS: ATTEND Family Medicine
DX: E11.621 Type 2 diabetes mellitus with foot ulcer (principal); L97.514 Non-pressure chronic ulcer of other part of right foot with necrosis of bone; E11.52 Type 2 diabetes mellitus with diabetic peripheral angiopathy with gangrene; L03.115 Cellulitis of right lower limb; E11.65 Type 2 diabetes mellitus with hyperglycemia; N18.32 Chronic kidney disease, stage 3b; B95.62 Methicillin resistant Staphylococcus aureus infection as the cause of diseases classified elsewhere; M72.6 Necrotizing fasciitis; L02.611 Cutaneous abscess of right foot; I89.0 Lymphedema, not elsewhere classified
CPT/HCPCS: 11042; 11045; G0463

== ENCOUNTER → 2021-07-19 | Outpatient (CLI) | payer MEDICARE, OTHER | LOC: WOUNDCARE 12:21 | PROVIDERS: ATTEND Family Medicine | DX: E11.621 Type 2 diabetes mellitus with foot ulcer (principal); L97.514 Non-pressure chronic ulcer of other part of right foot with necrosis of bone; E11.52 Type 2 diabetes mellitus with diabetic peripheral angiopathy with gangrene; L03.115 Cellulitis of right lower limb; E11.65 Type 2 diabetes mellitus with hyperglycemia; N18.32 Chronic kidney disease, stage 3b; B95.62 Methicillin resistant Staphylococcus aureus infection as the cause of diseases classified elsewhere; M72.6 Necrotizing fasciitis; L02.611 Cutaneous abscess of right foot; I89.0 Lymphedema, not elsewhere classified | CPT/HCPCS: 11042; 11045; A6207; G0463 ==

== ENCOUNTER → 2021-07-22 | Outpatient (CLI) | payer MEDICARE, OTHER | LOC: WOUNDCARE 12:27 | PROVIDERS: ATTEND Family Medicine | DX: E11.621 Type 2 diabetes mellitus with foot ulcer (principal); S91.301A Unspecified open wound, right foot, initial encounter; E11.22 Type 2 diabetes mellitus with diabetic chronic kidney disease; I12.0 Hypertensive chronic kidney disease with stage 5 chronic kidney disease or end stage renal disease; N18.6 End stage renal disease; E11.40 Type 2 diabetes mellitus with diabetic neuropathy, unspecified | CPT/HCPCS: 29581; A6207; A6234; A6253; G0463 ==

== ENCOUNTER → 2021-07-26 | Outpatient (CLI) | payer MEDICARE, OTHER | LOC: WOUNDCARE 12:25 | PROVIDERS: ATTEND Family Medicine | DX: L97.514 Non-pressure chronic ulcer of other part of right foot with necrosis of bone (principal); E11.621 Type 2 diabetes mellitus with foot ulcer; L03.115 Cellulitis of right lower limb; E11.65 Type 2 diabetes mellitus with hyperglycemia; E11.22 Type 2 diabetes mellitus with diabetic chronic kidney disease; N18.32 Chronic kidney disease, stage 3b; B95.62 Methicillin resistant Staphylococcus aureus infection as the cause of diseases classified elsewhere; M72.6 Necrotizing fasciitis; L02.611 Cutaneous abscess of right foot; I89.0 Lymphedema, not elsewhere classified; E11.52 Type 2 diabetes mellitus with diabetic peripheral angiopathy with gangrene | CPT/HCPCS: 11042; 11045; A6207; G0463 ==

== ENCOUNTER → 2021-07-29 | Outpatient (CLI) | payer MEDICARE, OTHER | LOC: WOUNDCARE 11:24 | PROVIDERS: ATTEND Family Medicine | DX: E11.621 Type 2 diabetes mellitus with foot ulcer (principal); L97.512 Non-pressure chronic ulcer of other part of right foot with fat layer exposed; S91.301A Unspecified open wound, right foot, initial encounter; I12.0 Hypertensive chronic kidney disease with stage 5 chronic kidney disease or end stage renal disease; E11.22 Type 2 diabetes mellitus with diabetic chronic kidney disease; N18.6 End stage renal disease | CPT/HCPCS: 29581; G0463 ==

== ENCOUNTER → 2021-08-02 | Outpatient (CLI) | payer MEDICARE, OTHER | LOC: WOUNDCARE 12:27 | PROVIDERS: ATTEND Family Medicine | DX: E11.621 Type 2 diabetes mellitus with foot ulcer (principal); L97.514 Non-pressure chronic ulcer of other part of right foot with necrosis of bone; E11.65 Type 2 diabetes mellitus with hyperglycemia; E11.52 Type 2 diabetes mellitus with diabetic peripheral angiopathy with gangrene; L97.522 Non-pressure chronic ulcer of other part of left foot with fat layer exposed; N18.32 Chronic kidney disease, stage 3b; B95.62 Methicillin resistant Staphylococcus aureus infection as the cause of diseases classified elsewhere; M72.6 Necrotizing fasciitis; I89.0 Lymphedema, not elsewhere classified; L03.116 Cellulitis of left lower limb | CPT/HCPCS: 11042; 11045; A6197; A6207; A6253; G0463 ==

== ENCOUNTER → 2021-08-09 | Outpatient (CLI) | payer MEDICARE, OTHER ==
--- NOTE | 2021-08-09 14:53 | Diagnostic Imaging Report ---
INDICATION: Osteomyelitis. TIME OF EXAM: 1:35 PM Comparison is made with prior left foot radiographs from 12/17/2013. Metatarsals and phalanges appear intact. Midfoot and hindfoot are unremarkable. No definite bony destructive changes are seen. No soft tissue gas is identified. There are no fractures. IMPRESSION: No acute abnormality is detected. Dictated by: Dictated on workstation # [id number]
== END ==
LOC: RAD 13:09
PROVIDERS: ATTEND Family Medicine
DX: L97.522 Non-pressure chronic ulcer of other part of left foot with fat layer exposed (principal); L97.514 Non-pressure chronic ulcer of other part of right foot with necrosis of bone; E11.621 Type 2 diabetes mellitus with foot ulcer; E11.65 Type 2 diabetes mellitus with hyperglycemia; E11.22 Type 2 diabetes mellitus with diabetic chronic kidney disease; N18.32 Chronic kidney disease, stage 3b; B95.62 Methicillin resistant Staphylococcus aureus infection as the cause of diseases classified elsewhere; M72.6 Necrotizing fasciitis; I89.0 Lymphedema, not elsewhere classified; L03.116 Cellulitis of left lower limb; M86.172 Other acute osteomyelitis, left ankle and foot
CPT/HCPCS: 73630

== ENCOUNTER → 2021-08-09 | Outpatient (CLI) | payer MEDICARE, OTHER | LOC: WOUNDCARE 11:48 | PROVIDERS: ATTEND Family Medicine | DX: L97.514 Non-pressure chronic ulcer of other part of right foot with necrosis of bone (principal); E11.621 Type 2 diabetes mellitus with foot ulcer; E11.65 Type 2 diabetes mellitus with hyperglycemia; E11.22 Type 2 diabetes mellitus with diabetic chronic kidney disease; N18.32 Chronic kidney disease, stage 3b; B95.62 Methicillin resistant Staphylococcus aureus infection as the cause of diseases classified elsewhere; M72.6 Necrotizing fasciitis; I89.0 Lymphedema, not elsewhere classified; L03.116 Cellulitis of left lower limb; L97.522 Non-pressure chronic ulcer of other part of left foot with fat layer exposed; E11.52 Type 2 diabetes mellitus with diabetic peripheral angiopathy with gangrene | CPT/HCPCS: 11042 ==

== ENCOUNTER → 2021-08-16 | Outpatient (CLI) | payer MEDICARE | LOC: WOUNDCARE 12:40 | PROVIDERS: ATTEND Family Medicine | DX: E11.52 Type 2 diabetes mellitus with diabetic peripheral angiopathy with gangrene (principal); E11.621 Type 2 diabetes mellitus with foot ulcer; L97.514 Non-pressure chronic ulcer of other part of right foot with necrosis of bone; L97.522 Non-pressure chronic ulcer of other part of left foot with fat layer exposed; I96 Gangrene, not elsewhere classified; E11.65 Type 2 diabetes mellitus with hyperglycemia; E11.22 Type 2 diabetes mellitus with diabetic chronic kidney disease; N18.32 Chronic kidney disease, stage 3b; B95.62 Methicillin resistant Staphylococcus aureus infection as the cause of diseases classified elsewhere; M72.6 Necrotizing fasciitis; I89.0 Lymphedema, not elsewhere classified; L03.116 Cellulitis of left lower limb | CPT/HCPCS: 11042; 85652; 86141; G0463; 36415 ==

== ENCOUNTER → 2021-08-25 | Outpatient (CLI) | payer MEDICARE | LOC: WOUNDCARE 12:58 | PROVIDERS: ATTEND Family Medicine | DX: E11.52 Type 2 diabetes mellitus with diabetic peripheral angiopathy with gangrene (principal); E11.621 Type 2 diabetes mellitus with foot ulcer; E11.65 Type 2 diabetes mellitus with hyperglycemia; E11.22 Type 2 diabetes mellitus with diabetic chronic kidney disease; I96 Gangrene, not elsewhere classified; L97.522 Non-pressure chronic ulcer of other part of left foot with fat layer exposed; L97.514 Non-pressure chronic ulcer of other part of right foot with necrosis of bone; I89.0 Lymphedema, not elsewhere classified; N18.32 Chronic kidney disease, stage 3b; B95.62 Methicillin resistant Staphylococcus aureus infection as the cause of diseases classified elsewhere; M72.6 Necrotizing fasciitis | CPT/HCPCS: 11042; G0463 ==

== ENCOUNTER → 2021-08-30 | Outpatient (CLI) | payer MEDICARE ==
[~2021-08-30] MED LIST changes: +FLUC100T10 PO; -FLUC100T6 PO
== END ==
LOC: WOUNDCARE 12:51
PROVIDERS: ATTEND Family Medicine
DX: E11.621 Type 2 diabetes mellitus with foot ulcer (principal); L97.514 Non-pressure chronic ulcer of other part of right foot with necrosis of bone; E11.65 Type 2 diabetes mellitus with hyperglycemia; N18.32 Chronic kidney disease, stage 3b; B95.62 Methicillin resistant Staphylococcus aureus infection as the cause of diseases classified elsewhere; M72.6 Necrotizing fasciitis; I89.0 Lymphedema, not elsewhere classified; L97.522 Non-pressure chronic ulcer of other part of left foot with fat layer exposed; E11.52 Type 2 diabetes mellitus with diabetic peripheral angiopathy with gangrene
CPT/HCPCS: 11042; G0463

== ENCOUNTER → 2021-09-07 | Outpatient (CLI) | payer MEDICARE | LOC: WOUNDCARE 12:19 | PROVIDERS: ATTEND Family Medicine | DX: L97.514 Non-pressure chronic ulcer of other part of right foot with necrosis of bone (principal); E11.621 Type 2 diabetes mellitus with foot ulcer; E11.65 Type 2 diabetes mellitus with hyperglycemia; E11.22 Type 2 diabetes mellitus with diabetic chronic kidney disease; N18.32 Chronic kidney disease, stage 3b; B95.62 Methicillin resistant Staphylococcus aureus infection as the cause of diseases classified elsewhere; M72.6 Necrotizing fasciitis; I89.0 Lymphedema, not elsewhere classified; E11.52 Type 2 diabetes mellitus with diabetic peripheral angiopathy with gangrene | CPT/HCPCS: 29581; G0463 ==

== ENCOUNTER → 2021-09-13 | Outpatient (CLI) | payer MEDICARE | LOC: WOUNDCARE 12:18 | PROVIDERS: ATTEND Family Medicine | DX: E11.65 Type 2 diabetes mellitus with hyperglycemia (principal); E11.22 Type 2 diabetes mellitus with diabetic chronic kidney disease; N18.32 Chronic kidney disease, stage 3b; B95.62 Methicillin resistant Staphylococcus aureus infection as the cause of diseases classified elsewhere; M72.6 Necrotizing fasciitis; I89.0 Lymphedema, not elsewhere classified; E11.52 Type 2 diabetes mellitus with diabetic peripheral angiopathy with gangrene | CPT/HCPCS: 99212 ==